=== PATIENT | female | born 1980 | race Caucasian/White ===

== ENCOUNTER 2022-03-05 08:17 | Outpatient (REF) | payer OTHER, SELFPAY ==
--- NOTE | ~2022-03-05 | XR_ITS ---
EXAMINATION: XR HAND, RIGHT CLINICAL INFORMATION: Pain in right hand. COMPARISON: None TECHNIQUE: PA, lateral, and oblique views of the right hand. FINDINGS: The bones and soft tissues are normal. No fracture. Alignment is anatomic. Joint spaces are maintained. No erosions or soft tissue calcifications. XR/XR hand RT min 3V IMPRESSION: Unremarkable right hand exam
== END 2022-03-05 08:18 | disposition home or self-care (01) ==
LOC: HO.HOSX 08:17
PROVIDERS: Visit Provider Physician Assistant
DX: M79.641 Pain in right hand (principal)
CPT/HCPCS: 73130

== ENCOUNTER 2022-03-20 06:01 | Day surgery (SDC) | payer OTHER, SELFPAY ==
[2022-03-13 14:57] VITALS: BMI 30.2
--- NOTE | 2022-03-19 08:45 | HO.ANESPROP2 ---
Documented by User: Terri Chapa NP 03/19/22 08:45 HPI - Anesthesia Eval Consult details Narrative: 41yo F for Right Excision Ganglion wrist PMFSH Active Problems Active Problems: All Active Problems (Updated 03/05/22 @ 09:50 by Mino Salvador PA-C) Ganglion cyst of dorsum of right wrist (Acute) Past Medical History Medical History No pertinent past medical history Surgical History Surgical History History of hysteroscopy Status post incision and drainage Social History Social History Alcohol intake: current Alcohol intake frequency: holidays/special occasions only Patient Tobacco Use Status: Never used Tobacco Are you DNR?: No Advance Directives: No Advance Directives Information Provided: Yes Recently lost weight without trying: No Nutrition Risks: No Nutritional Risk FDLMP: has iud. sporadic Current occupational status: unemployed Meds Allergies Allergy/AdvReac Type Severity Reaction Status Date / Time Penicillins AdvReac diff Verified 03/20/22 06:18 breathing Home Medications Medication Instructions Recorded Confirmed Last Taken Type multivitamin 1 tab PO DAILY 03/13/22 03/13/22 Unknown History Exam Exam Date and Time: March 19, 2022 0845 Height,Weight and Vital Signs: Height 5 ft 2 in Weight 74.843 kg Assessment and Plan Assessment Anesthesia Assessment: Chart Reviewed Documented by User: Yo Torres MD 03/20/22 08:13 PMFSH Past Medical History Medical History No pertinent past medical history Family History Family history of problems with anesthesia: No Surgical History Surgical History History of hysteroscopy Status post incision and drainage History of Problems with Anesthesia: No Social History Social History Alcohol intake: current Alcohol intake frequency: holidays/special occasions only Patient Tobacco Use Status: Never used Tobacco Are you DNR?: No Advance Directives: No Advance Directives Information Provided: Yes Recently lost weight without trying: No Nutrition Risks: No Nutritional Risk FDLMP: has iud. sporadic Current occupational status: unemployed Meds Allergies Allergy/AdvReac Type Severity Reaction Status Date / Time Penicillins AdvReac diff Verified 03/20/22 06:18 breathing Home Medications Medication Instructions Recorded Confirmed Last Taken Type multivitamin 1 tab PO DAILY 03/13/22 03/13/22 Unknown History Exam Airway Mallampati Class: III TM Dist: >3cm Neck ROM: Full Loose/Missing/Broken Teeth: No Assessment and Plan Assessment Anesthesia Assessment: Anesthesia Plan Discussed Final Anesthetic Review Family History of Problems with Anesthesia: No History of Problems with Anesthesia: No NPO: Yes ASA Class: I Final Preanesthetic Review: No Changes in Pt Med Stat, Meds/Allgs Chart Reviewed, Consent Obtained/Reviewed and Anes Risks/Benef Reviewed Patient Risk: Low Procedure Risk: Low Anesthetic Plan Anesthetic Plan: GA Disposition: Standard PACU
[2022-03-20] VITALS (7 sets, daily range): BP systolic 104–122; BP diastolic 59–79; PULSE 53–59; RESP 16–18; TEMP 36.2–36.4; O2SAT 97–99
[2022-03-20 06:24] LABS: UPreg QC Valid YES; Urine Pregnancy NEGATIVE (NEGATIVE)
[2022-03-20] MEDS: Lactated Ringers 1,000 ML 100 ML IVCONT (06:32)
--- NOTE | 2022-03-20 07:32 | PC.NURSE ---
verified with dr. irene that she does not want an antibiotic.
--- NOTE | 2022-03-20 08:54 | MHC.SHP ---
Pre-Procedural Eval Section A Date of Service: 03/20/22 The patient is an INPATIENT: No Changes since office visit: No Cold of Flu in the past 2 weeks, No New Medical Problems, No Changes in Medication and No Patient answered all questions The History & Physical has been completed within 30 days and I have reviewed it.: Yes Section B Chief Complaint: ganglion Allergies: Allergies Allergy/AdvReac Type Severity Reaction Status Date / Time Penicillins AdvReac diff Verified 03/20/22 06:18 breathing Plan I have reviewed the history and physical and performed a pertinent physical examination on my patient. No changes have occurred unless specified.
--- NOTE | 2022-03-20 08:54 | W.PM.OPN ---
Operative Note Operative Note Date of Service: 03/20/22 Narrative: Operative Note Narrative: Preop diagnosis: 1. Right dorsal wrist ganglion Postop diagnosis: Same Procedure: 1. Right dorsal wrist ganglion excisional biopsy Surgeon: Katya Kevin MD Anesthesia: Mac Findings: Left dorsal wrist ganglion approximately 1.2 cm in diameter, filled with clear viscous fluid consistent with a ganglion Tourniquet time: 13 minutes EBL: 5.0 ml Specimen: Left dorsal wrist ganglion Drains: None Complications: None Disposition: Brought to the recovery room in stable condition Plan: Follow-up in 10-14 days for wound check, suture removal and to check pathology Indications: The patient is a 41 year old woman with a right dorsal wrist ganglion that has been unresponsive to nonoperative management. The risks and benefits of operative treatment, including but not limited to risk of damage to blood vessels, nerves, tendons, infection, recurrence, persistent pain or numbness, or need for further surgery were discussed with the patient and they wished to proceed with surgery. Procedure: Once consent was obtained patient was brought back to the operating suite and placed in the operating table in a supine position. Perioperative antibiotics and anesthesia was administered by the anesthesia team. A tourniquet was applied to the proximal aspect of the right upper extremity and the limb was prepped and draped in a standard surgical fashion. The limb was elevated exsanguinated with Esmarch bandage and the tourniquet inflated to 250 mm of mercury for a total tourniquet time of 13 minutes. A 2 cm transverse incision was made over the dorsal aspect of the right wrist, centered over the dorsal wrist ganglion. Ganglion was located sitting atop the ECRB tendon with its stalk passing just ulnar to this tendon. The incision was made with a #15 blade through the skin to the subcutaneous tissues. Tenotomy scissors were then used to carefully dissect down through the subcutaneous layer to the dorsal wrist ganglion. It measured approximately 1.2 cm in diameter and was filled with clear viscous fluid consistent with a ganglion. It was carefully mobilized from the surrounding soft tissues using tenotomy and iris scissors. It's stalk passed just ulnar to the ECRB tendon. The Bovie was used to cauterize the stalk to reduce risk of recurrence., and the ganglion was cut free and removed to the back table to be sent for histopathologic review. No further masses were identified. At this point the tourniquet was deflated and hemostasis obtained with a brief period of local pressure and monopolar electrocautery. Wound was irrigated with normal saline. The subcutaneous layer was closed with some 4-0 Vicryl suture, and the skin edges were reapproximated with some 5-0 nylon suture. The wound was infiltrated with some 1% lidocaine with epinephrine for postop pain control and a sterile dressing was applied. The patient appears to have tolerated the procedure well and with no complications. All digits were well vascularized conclusion of the case.
== END 2022-03-20 09:54 | disposition home or self-care (01) ==
PROVIDERS: Nurse Practitioner; Visit Provider Orthopaedic Surgery
PROC: (CPT 25111; principal; 2022-03-20 07:30)
DX: M67.431 Ganglion, right wrist (principal); Z88.0 Allergy status to penicillin
CPT/HCPCS: 25111; 81025; 88304; J0171; J1100; J2405; J3010

== ENCOUNTER 2022-09-26 09:28 | Outpatient (REF) | payer OTHER, SELFPAY ==
[2022-09-26 09:39] LABS: MANUAL DIFF FLAG NO
[2022-09-26 10:23] LABS: Basophils Absolute Auto 0.1 X10*3/uL (0.0-0.2); Eosinophils Absolute Auto 0.3 X10*3/uL (0.0-0.4); Hematocrit 46.3 % (37.0-47.0); Hemoglobin 15.1 g/dl (12.0-16.0); Imm Gran Abs Auto 0.03 X10*3/uL (0.00-0.03); Imm Gran Pct Auto 0.5 % (0.0-0.4); Lymphocytes Absolute Auto 1.9 X10*3/uL (1.2-4.9); Lymphocytes Percent Auto 30.4 % (20-40); Mean Corpuscular HGB Conc 32.6 g/dl (31.0-35.0); Mean Platelet Volume 10.3 fL (9.4-12.3); Monocytes Absolute Auto 0.5 X10*3/uL (0.1-1.2); Monocytes Percent Auto 7.7 % (2-11); Neutrophils Absolute Auto 3.5 x10*3/uL (2.0-8.3); Neutrophils Percent Auto 56.4 % (45-73); Platelet Count 318 X10*3/uL (160-400); Red Cell Distribution Width 11.9 % (11.0-16.0); White Blood Count 6.2 X10*3/uL (4.8-10.8)
[2022-09-26 11:48] LABS: Alanine Aminotransferase 16 U/L (0-31); Albumin Level 4.3 g/dL (3.5-5.0); Alkaline Phosphatase 77 U/L (39-117); Anion Gap 14 (12-20); Aspartate Amino Transferase 17 U/L (5-31); Bilirubin Total 1.3 mg/dL (0.0-1.0); Blood Urea Nitrogen 12 mg/dL (9-16); Calcium 9.5 mg/dL (8.4-10.2); Carbon Dioxide 26 mmol/L (22-29); Chloride 105 mmol/L (96-108); Cholesterol 194 mg/dL; Estimated Glomerular Filt Rate > 60; Glucose Random 86 mg/dL (60-115); HDL Cholesterol 37 mg/dL; LDL Cholesterol Calculated 133 mg/dl; Potassium 4.3 mmol/L (3.3-5.1); Sodium 141 mmol/L (135-145); Total Protein 7.8 g/dL (6.5-8.0); Triglycerides 122 mg/dL
[2022-09-26 12:05] LABS: TSH reflex Free T4 1.23 uIU/mL (0.32-4.0)
== END 2022-09-26 09:29 | disposition home or self-care (01) ==
LOC: HO.LAB 09:28
PROVIDERS: PCP Family Medicine; Visit Provider Family Medicine
DX: Z00.00 Encounter for general adult medical examination without abnormal findings (principal)
CPT/HCPCS: 36415; 80053; 80061; 84443; 85025

== ENCOUNTER 2022-10-17 13:00 | Outpatient (RCR) | payer OTHER, SELFPAY ==
--- NOTE | 2022-09-26 12:31 | MHC.OT.EP ---
[address] [phone] Occupational Therapy Plan of Care Date of Evaluation: 09/26/22 Diagnosis: Dorsal wrist ganglion Pain Location: 0-8 right dorsal wrist , deep ache Pain Score: 8 Pain Scale Used: Numeric (0 - 10) Aggravating Factors: Wt bearing on right wrist Alleviating Factors: Assessment: Pt is a 42 yo female S/P right wrist dorsal ganglion cyst excision 03/20/22. Pt resumed her gym work outs 5-6 x a wk in April with low pain and noted worsening pain with weight bearing on her right hand and recurrence of the ganglion cyst early May. Pt referred to OT to improve pain with weight bearing and wrist ROM. Frequency and Duration: The patient will be seen 2x wk x 4 wks Short Term Goals: Demo indep with HEP Wrist flex to > 60 deg Wrist ulnar dev to >25 deg Demo inc wt bearing tolerance to > 50 lb Heat Treat Inspector Goals: Same as above Treatment Plan: Therapeutic Exercise Therapeutic Activity Home Exercise Program Patient Education Ultrasound Electronically Signed By: Neha Mercado OT CHT CLT Please Sign and return to therapist. Thank you once again for your referral.
--- NOTE | 2022-11-21 08:43 | MHC.OT.DC ---
[address] [phone] F: [phone] Occupational Therapy Discharge Note Patient Name: Yi Juan Provider: Katya Kevin Diagnosis: Dorsal wrist ganglion Date of Surgery: 03/20/23 Date of Evaluation: 09/26/22 Date of Discharge: Treatments to Date: 7 Cancellations to Date: 2 No Shows to Date: Discharge Status: Patient Elected to Stop Discharge Summary: Overall good improvements and only reporting pain w/ direct weightbearing through push-ups, but able to complete weightbearing through palm while pushing off and now able to do modified push-ups on wall or counter, but will continue to progress as able w/ caution. Electronically Signed By: Zuleyma Yung OTR/Arturo AYALAT Reviewed/agree with student documentation: N/A Therapist: Please Sign and return to therapist, thank you for your referral.
== END 2022-11-21 08:44 | disposition home or self-care (01) ==
LOC: HO.OT 13:00
PROVIDERS: PCP Family Medicine; Visit Provider Orthopaedic Surgery
DX: M67.431 Ganglion, right wrist (principal)
CPT/HCPCS: 97033; 97035; 97110; 97140; 97165

== ENCOUNTER 2023-01-21 10:14 | Outpatient (REF) | payer OTHER, SELFPAY ==
[2023-01-21 11:42] LABS: Hematocrit 47.2 % (37.0-47.0); Hemoglobin 15.6 g/dl (12.0-16.0); Mean Corpuscular HGB Conc 33.1 g/dl (31.0-35.0); Mean Corpuscular Hemoglobin 29.6 pg (27.0-33.0); Mean Corpuscular Volume 89.6 fL (80.0-98.0); Mean Platelet Volume 11.5 fL (9.4-12.3); Platelet Count 193 X10*3/uL (160-400); Red Blood Count 5.27 X10*6/uL (4.20-5.50); Red Cell Distribution Width 12.3 % (11.0-16.0); White Blood Count 6.3 X10*3/uL (4.8-10.8)
[2023-01-21 12:28] LABS: Erythrocyte Sedimentation Rate 10 MM/HR (0-20)
[2023-01-21 12:47] LABS: Alanine Aminotransferase 50 U/L (0-31); Albumin Level 4.3 g/dL (3.5-5.0); Alkaline Phosphatase 76 U/L (39-117); Anion Gap 12 (12-20); Aspartate Amino Transferase 30 U/L (5-31); Bilirubin Total 1.7 mg/dL (0.0-1.0); Blood Urea Nitrogen 12 mg/dL (9-16); C Reactive Protein 0.45 mg/dL (< or = 0.50); Carbon Dioxide 29 mmol/L (22-29); Chloride 106 mmol/L (96-108); Estimated Glomerular Filt Rate > 60; Glucose Random 83 mg/dL (60-115); Potassium 4.5 mmol/L (3.3-5.1); Sodium 142 mmol/L (135-145); Total Protein 7.4 g/dL (6.5-8.0)
[2023-02-02 08:47] LABS: Other Ref Test - Misc SEE COMMENTS
== END 2023-01-21 10:15 | disposition home or self-care (01) ==
LOC: HO.LAB 10:14
PROVIDERS: PCP Family Medicine; Visit Provider Family Medicine
DX: R19.7 Diarrhea, unspecified (principal)
CPT/HCPCS: 80053; 82784; 85027; 85652; 86140; 86364

== ENCOUNTER 2024-08-03 07:48 | Outpatient (REF) | payer OTHER, SELFPAY ==
[2024-08-03 08:04] LABS: MANUAL DIFF FLAG NO
[2024-08-03 08:27] LABS: Basophils Absolute Auto 0.1 X10*3/uL (0.0-0.2); Basophils Percent Auto 0.9 % (0-2); Eosinophils Absolute Auto 0.2 X10*3/uL (0.0-0.4); Eosinophils Percent Auto 2.8 % (0-4); Hematocrit 46.8 % (37.0-47.0); Hemoglobin 16.1 g/dl (12.0-16.0); Imm Gran Abs Auto 0.03 X10*3/uL (0.00-0.03); Imm Gran Pct Auto 0.4 % (0.0-0.4); Lymphocytes Absolute Auto 1.2 X10*3/uL (1.2-4.9); Lymphocytes Percent Auto 15.1 % (20-40); Mean Corpuscular HGB Conc 34.4 g/dl (31.0-35.0); Mean Corpuscular Hemoglobin 30.7 pg (27.0-33.0); Mean Corpuscular Volume 89.1 fL (80.0-98.0); Monocytes Absolute Auto 0.8 X10*3/uL (0.1-1.2); Monocytes Percent Auto 9.3 % (2-11); Neutrophils Absolute Auto 5.8 x10*3/uL (2.0-8.3); Neutrophils Percent Auto 71.5 % (45-73); Platelet Count 233 X10*3/uL (160-400); Red Blood Count 5.25 X10*6/uL (4.20-5.50); White Blood Count 8.1 X10*3/uL (4.8-10.8)
[2024-08-03 08:34] LABS: Estimated Average Glucose 97 mg/dL; Hemoglobin A1C 129.2846 umol/L; Total Hemoglobin (HGBA1C) 4143.6391 umol/L
[2024-08-03 09:47] LABS: Alanine Aminotransferase 28 U/L (0-31); Albumin Level 4.3 g/dL (3.5-5.0); Alkaline Phosphatase 67 U/L (39-117); Anion Gap 12 (12-20); Aspartate Amino Transferase 23 U/L (5-31); Bilirubin Total 1.1 mg/dL (0.0-1.0); Blood Urea Nitrogen 14 mg/dL (9-16); Calcium 8.9 mg/dL (8.4-10.2); Carbon Dioxide 27 mmol/L (22-29); Chloride 107 mmol/L (96-108); Cholesterol 206 mg/dL (<200); Estimated Glomerular Filt Rate > 60; Glucose Random 90 mg/dL (60-115); HDL Cholesterol 44 mg/dL (>40); LDL Cholesterol Calculated 139 mg/dL (<100); Sodium 142 mmol/L (135-145); Total Protein 7.4 g/dL (6.5-8.0); Triglycerides 118 mg/dL (<150)
[2024-08-03 09:51] LABS: TSH reflex Free T4 2.29 uIU/mL (0.32-4.0)
[2024-08-03 10:05] LABS: Reflex LDLD? No
== END 2024-08-03 07:49 | disposition home or self-care (01) ==
LOC: HO.LAB 07:48
PROVIDERS: PCP Student in an Organized Health Care Education/Training Program; Visit Provider Student in an Organized Health Care Education/Training Program
DX: Z31.84 Encounter for fertility preservation procedure (principal); Z13.1 Encounter for screening for diabetes mellitus
CPT/HCPCS: 36415; 80053; 80061; 83036; 84443; 85025

== ENCOUNTER 2024-08-03 08:46 | Outpatient (AMB) | payer OTHER, SELFPAY ==
--- NOTE | 2024-08-03 08:47 | MHC.OFFVIS ---
Vital Signs 08/03/24 08:48 Height 5 ft 2 in Weight 180 lb BMI 32.9 Intake Visit Reasons: colonoscopy screening Intake Note: This patient presents for colonoscopy screening. Pt c/o; reports never had a colonoscopy before, reports no rectal bleeding, reports changes in bowel habits. 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 She has never had any colonoscopy in the past. She denies any significant GI complaints. She does state that her mother has been diagnosed to have colitis and her brother has Crohn's disease. She says that she may have had some area starting last year on and off. She otherwise says she is in good health overall. PFSH Medical History Colon cancer screening No pertinent past medical history Surgical History History of hysteroscopy Status post incision and drainage Social History Alcohol intake: current Alcohol intake frequency: holidays/special occasions only Patient Tobacco Use Status: Never used Tobacco Current occupational status: unemployed Review of Systems Const Denies chills and Denies fever(s) Card Denies chest pain, Denies dyspnea and Denies dyspnea on exertion Resp Denies cough, Denies dyspnea and Denies dyspnea on exertion GI Denies hematochezia and Denies change in bowel habits Denies hematuria Musc Denies back pain and Denies limited range of motion Neuro Denies focal weakness and Denies convulsions Psych Denies depression and Denies mood swings Physical Exam Vital Signs: BMI result Body Mass Index 32.9 Const General: comfortable and no acute distress Orientation/consciousness: patient oriented x3 Neck Neck: Yes no lymphadenopathy Resp Auscultation: clear to auscultation bilaterally Cardio Rhythm: regular rhythm GI Palpation (GI): Soft to palpation, nontender and no guarding Neuro General: patient oriented x3 Assessment & Plan Assessment & Plan (1) Colon cancer screening: Code(s): Z12.11 - Encounter for screening for malignant neoplasm of colon Category: Medical Plan: I reviewed with her the technique of colonoscopy for screening. I explained the risks including but not limited to bleeding and perforation, as well as the benefits and alternatives. He was given consent. She understands the other alternative of Cologuard testing as well. She does not seem to be at above average risk for colon cancer. Medications: New sodium,potassium,mag sulfates 17.5-3.13-1.6 gram (Suprep Bowel Prep Kit) DILUTE; drink full amount early evening before AND next morning at least 2 hr before procedure; follow w 32 oz. water PO 354 mL 0RF Coding Level of Care Code New Pt Level 3 (18921) Diagnoses Colon cancer screening Z12.11
[2024-08-03 08:48] VITALS: BMI 32.9
== END 2024-08-03 09:03 | disposition home or self-care (01) ==
PROVIDERS: PCP Family Medicine; Visit Provider Surgery
DX: Z12.11 Encounter for screening for malignant neoplasm of colon (principal)
CPT/HCPCS: 99203

== ENCOUNTER 2024-09-02 08:17 | Day surgery (SDC) | payer OTHER, SELFPAY ==
[2024-08-31 10:28] VITALS: BMI 32.9
--- NOTE | 2024-08-31 13:30 | HO.ANESPROP2 ---
HPI - Anesthesia Eval Consult details Narrative: 44yo F for Colonoscopy with Possible Polypectomy PMFSH Active Problems Active Problems: All Active Problems Colon cancer screening (Acute) Stiffness of right wrist joint (Acute) Ganglion cyst of dorsum of right wrist (Acute) Past Medical History Medical History Anxiety Colon cancer screening No pertinent past medical history Family History Family history of problems with anesthesia: No Surgical History Surgical History History of colonoscopy (~09/02/24) History of surgery on right wrist History of hysteroscopy Status post incision and drainage History of Problems with Anesthesia: No Social History Social History Alcohol intake: current Alcohol intake frequency: holidays/special occasions only Patient Tobacco Use Status: Never used Tobacco Current occupational status: unemployed Meds Allergies Allergy/AdvReac Type Severity Reaction Status Date / Time Penicillins AdvReac diff Verified 09/15/24 10:34 breathing Home Medications ?Medication ?Instructions ?Recorded ?Confirmed ?Last Taken ?Type multivitamin 1 tab PO DAILY 03/13/22 09/02/24 Unknown History escitalopram oxalate 5 mg tablet 5 mg PO DAILY 08/03/24 09/02/24 Unknown History Exam Height,Weight and Vital Signs: Height 5 ft 2 in Weight 81.647 kg Assessment and Plan Assessment Anesthesia Assessment: Chart Reviewed Final Anesthetic Review Family History of Problems with Anesthesia: No History of Problems with Anesthesia: No
--- OUTSIDE RECORDS SUMMARY | 2024-09-02 08:20 | XMS_ITS | Data Portability ---
Author Organization [place] [facility], [facility] Address [address] [place] [address] Assessment No assessment recorded. Plan of Treatment Reminders Order Date Submit Date Provider Last Modified By Organization Details Last Modified Time Details Appointments None recorded. Lab culture, vaginal, yeast - VAGINAL CULTURE SPECIATE YEAST. IF CULTURE IS POSITIVE PLEASE SEND OUT SENSITIVIT IES 2017 018 [email or web address] [facility], [address] [place] [address], [id number] 8 14:36:27 test, urine 2018 019 [email or web address] In-Office Order, Internal Use Only DO Not Attach Compendium DO Not Attach Compendium, Do Not Delete/merge, [id number] 9 13:37:28 kandace wet prep 2018 019 [email or web address] In-Office Order, Internal Use Only DO Not Attach Compendium DO Not Attach Compendium, Do Not Delete/merge, [id number] 9 14:24:22 test, urine 2018 019 In-Office Order, Internal Use Only DO Not Attach Compendium DO Not Attach Compendium, Do Not Delete/merge, [id number] 9 14:28:55 Referral None recorded. Procedures None recorded. Surgeries cryotherap y (SURG) 2018 019 [email or web address] Not available 9 10:18:45 Imaging None recorded. Medication Orders Diflucan 100 mg tablet 2017 018 [email or web address] [id number], [address] [facility], [facility] [place] [place] [address] [place], [address], 9 14:10:15 Ortho Micronor 0.35 mg tablet 2018 019 INTERFACE [id number], [address] [facility], [facility] [place] [place] [address] [place], [address], 9 14:23:14 Patient TargetsNo targets recorded. Patient Instructions Encounter Date Encounter Id Patient Instructions Last Modified By Organization Details Last Modified Time 12/28/2017 [id number] culture for yeas t and sensitivities if negative continue diflucan and ointment twice a week fro 3 months cryo surgery discussed for ectropion pt has completed her childbearing aware of risks and benefits of this procedure [email or web address] Not available 12/28/2017 17:01:28 04/06/2018 [id number] decrease difluca n to once a week schedule cryo ablation for cervical ectropion pt aware and conselled about risks and benefits of this wants to proceed [email or web address] Not available 04/06/2018 13:22:18 11/17/2018 [id number] cryo of cervix done head slipped and defrosted after 2 minutes pt apprised of this cervix then cryoed for 2 minutes pt will follow up in 1 week to recheck vagina if appears ok will repeat cryo of cervix only [email or web address] Not available 11/18/2018 12:03:30 11/22/2018 [id number] appears that vagina is intact will reperform the cryo surgery at no cost to the patient this visit will be without cost as well will reschedle cervical cryo [email or web address] Not available 11/22/2018 09:48:09 02/28/2019 [id number] wet smear looks normal no inflammation no rita seen cultures sent trial of micronor to manipulate discharge trial for two months discussed skin breakdown recommend trial of no underwear and no pads [email or web address] Not available 02/28/2019 14:26:49 Reason for Referral None Reported. Results Created Date Observation Date Name Description Value Unit Range Abnormal Flag Note LastModifiedBy Organization Detail LastModifiedTime 02/28/2019 [email or web address] wet prep Hyphae Absent Not Available In-Office Order Internal Use Only DO Not Attach Compendium DO Not Attach Compendium, Do Not Delete/merge, [id number] 02/28/2019 14:23:32 02/28/2019 kandace wet prep Clue Cells Absent Not Available In-Offi ce Order Internal Use Only DO Not Attach Compendium DO Not Attach Compendium, Do Not Delete/merge, [id number] 02/28/2019 14:23:32 02/28/2019 kandace wet prep Other nl nicole Not Available In-Office Order Internal Use Only DO Not Attach Compendium DO Not Attach Compendium, Do Not Delete/merge, [id number] 02/28/2019 14:23:32 02/28/2019 pregn trudy test, urine Result negati ve Not Available In-Office Order Internal Use Only DO Not Attach Compendium DO Not Attach Compendium, Do Not Delete/merge, [id number] 02/28/2019 14:09:44 12/29/19 18 01/06/2018 cultu re, vagin al, yeast source VAG Not Available [facility] [address] [place], [address] 01/06/2018 08:12:55 12/29/19 18 01/06/2018 cultu re, vagin al, yeast culture CULTU RE, YEAST , W/DIR ECT FLUOR ESCEN T KANDACE MICRO NUMBE R: [id number] TEST STATU S: FINAL SPECI MEN SOURC E: VAGIN A SPECI MEN QUALI TY: ADEQU ATE SMEAR : No funga l eleme nts seen. RESUL T: No fungu s isola von Not Available [facility] [address] [place], [address] 01/06/2018 08:12:55 11/18/19 19 11/17/2018 pregn trudy test, urine Result negati ve Not Available In-Office Order Internal Use Only DO Not Attach Compendium DO Not Attach Compendium, Do Not Delete/merge, [id number] 11/17/2018 11:50:33 02/29/20 19 03/09/2019 cultu re, vagin al, yeast source VAG Not Available [facility] [address] [place], [id number] 03/09/2019 09:58:55 02/29/20 19 03/09/2019 cultu re, vagin al, yeast culture CULTU RE, YEAST , W/DIR ECT FLUOR ESCEN T KANDACE MICRO NUMBE R: [id number] TEST STATU S: FINAL SPECI MEN SOURC E: VAGIN A SPECI MEN QUALI TY: ADEQU ATE SMEAR : No funga l eleme nts seen. RESUL T: No fungu s isola von Not Available [facility] [address] [place], [address] 03/09/2019 09:58:55 02/29/20 19 03/09/2019 bacte rial vagin osis + vagin itis panel , vagin al lactobacillu s species 7.3 log_( cells /mL) Not Available [facility] [address] [place], [address] 03/09/2019 09:58:55 02/29/2003/09/2019 bacte rial vagin osis + vagin itis panel , vagin al atopobium vaginae Not Detect ed Not Available [facility] [address] [place], [address] 03/09/2019 09:58:55 02/29/2003/09/2019 bacte rial vagin osis + vagin itis panel , vagin al megasphaera species Not Detect ed Not Available [facility] [address] [place], [address] 03/09/2019 09:58:55 02/29/2003/09/2019 bacte rial vagin osis + vagin itis panel , vagin al gardnerella vaginalis Not Detect ed NOT SUPPO RTIVE OF BV: The patte rn of resul ts is not suppo rtive of a diagn osis of BV: 1)Pre sence of Lacto bacil marshal spp., G. vagin murtaza level s less than 6.0 log cells /mL, and absen ce of A. vagin ae and Megas phaer a spp; or 2)Abs ence of all targe von organ isms; or 3)Abs ence of Lacto bacil marshal spp. plus G. vagin murtaza detec von at level s less than 6.0 log cells /mL and absen ce of A. vagin ae and Megas phaer a spp. EQUIV OCAL FOR BV: The patte rn of resul ts is neith er suppo rtive nor not suppo rtive of a diagn osis of BV. The patie nt may be in trans ition into or out of BV: Prese nce of Lacto bacil marshal spp. plus G. vagin murtaza (grea ter or equal to 6.0 log cells /mL) and/o r one of the other BV-as socia von patho gens. SUPPO RTIVE OF BV: The patte rn of iggy ts is suppo rtive of a diagn osis of BV: Absen ce of Lacto bacil marshal spp. and prese nce of G. vagin murtaza great er than or equal to 6.0 log cells /mL and/o r one or both of the other BV-as socia von patho gens. Alexa ntrat ion for Lacto bacil li (L. acido philu s/ crisp atus, L. jense kiki) are colle ctive ly repor von under the term Lact obaci llus spp. , as these speci es are among the perox leslie produ cing Lacto bacil li thoug ht to be prote ctive again st bacte rial vagin osis. Atopo bium vagin ae, Megas phaer a spp., and Gardn erell a (grea ter than 6.0 log cells /mL) have been assoc iated with vagin osis when prese nt in the absen ce of perox leslie produ cing Lacto bacil li. This test was devel oped and its benigno tical perfo rmanc e adriana cteri stics have been deter mined by [facility], [facility], [place]. It has not been clear ed or appro celestina by the FDA. This assay has been valid ated pursu ant to the CLIA regul ation s and is used for clini radha purpo ses. Not Available [facility] [address] [place], [address] 03/09/2019 09:58:55 02/29/20 19 03/09/2019 bacte rial vagin osis + vagin itis panel , vagin al bv category NOT SUPPOR TIVE not suppor tiv Not Available [facility] [address] [place] [address], 03/09/2019 09:58:55 02/29/2003/09/2019 bacte rial vagin osis + vagin itis panel , vagin al chlamydia trachomatis RNA, tma Not Detect ed not detect ed Not Available [address], 03/09/2019 09:58:55 02/29/20 19 03/09/2019 bacte rial vagin osis + vagin itis panel , vagin al neisseria gonorrhoeae RNA,tma Not Detect ed not detect ed This test was perfo rmed using the APTIM A COMBO 2(R) Assay (GEN- PROBE (R)). The benigno tical perfo rmanc e adriana cteri stics of this assay , when used to test SureP ath(R ) speci mens have been deter mined by [facility] Jerad goss Not Available [address], 03/09/2019 09:58:55 02/29/2003/09/2019 bacte rial vagin osis + vagin itis panel , vagin al C. albicans, DNA Detect ed not detect ed abnormal Not Available [address], 03/09/2019 09:58:55 02/29/2003/09/2019 bacte rial vagin osis + vagin itis panel , vagin al C. glabrata, DNA Not Detect ed not detect ed Not Available [address], 03/09/2019 09:58:55 02/29/2003/09/2019 bacte rial vagin osis + vagin itis panel , vagin al C. tropicalis, DNA Not Detect ed not detect ed Not Available [address], 03/09/2019 09:58:55 02/29/2003/09/2019 bacte rial vagin osis + vagin itis panel , vagin al C. parapsilosis , DNA Not Detect ed not detect ed This test was devel oped and its benigno tical perfo rmanc e adriana cteri stics have been deter mined by Dustin trejo [place], [place]. It has not been clear ed or appro celestina by the FDA. This assay has been valid ated pursu ant to the CLIA regul ation s and is used for clini radha purpo ses. Not Available [facility] [address], [place], [facility] 03/09/2019 09:58:55 02/29/20 19 03/09/2019 bacte rial vagin osis + vagin itis panel , vagin al sureswab (R) trichomonas vag RNA,ql,tma Not Detect ed not detect ed This test was perfo rmed using the APTIM A Trich omona s vagin murtaza Assay (Gen- Probe ). For more infor paulino helton on this test, go to http: //[facility] sebas helton.que stdia gnost ics.c om/fa q/ Trich omona stma Not Available [facility] [address], [place], [facility] 03/09/2019 09:58:55 Result Notes None recorded. Procedures Surgical History Date Name Laterality Status Provider Name and Address Organization Details Recorded Time LEEP completed Mary Lund MD [address] [place] [address], [address] [place] [address] 11/24/2017 11:55:27 Hysteroscopy biopsy completed Mary Lund MD [address] [place] [address], [address] [place] [address] 11/24/2017 11:56:53 Imaging Results None recorded. Procedure Notes None recorded. Medical Equipment None Reported. Allergies Allergen ID Allergen Name Allergen Category Reaction Reaction Severity Criticality Documentation Date Start Date Code Code System Note Provider Name and Address Organization Details Recorded Time [id number] Medicinal product containin g penicilli n and acting as antibacte rial agent (product) medicatio n Not available Not available Not available 11/24/2017 97368 05 SNOMED Clemencia Misbah marcus, [facility] 8 11:47:53 Medications Name Sig Start Date Stop Date Status Note LastModified by Organization Details LastModified Time fluconazole 100 mg tablet Take 1 tablet twice a week by oral route. 02/28 completed Not Available Not Available Not Available fluconazole 150 mg tablet Take 1 tablet every 72 hours by oral route. active Not Available Not Available No t Available nystatin-tr iamcinolone 100,000 unit/gram-0 .1 % topical ointment APPLY TO THE AFFECTED AREA(S) BY TOPICAL ROUTE 2 TIMES PER DAY 12/28 completed Not Available Not Available Not Available Shalini 0.35 mg tablet active Not Available Not Available No t Available Vitals Date Recorded Body height Body mass index (BMI) Body weight Systolic blood pressure Diastolic blood pressure Provider Name and Address Organization Details Last Updated DateTime 12/28/2017 157.48 cm 28.3 kg/m2 85534.82 g 122 mm[Hg] 78 mm[Hg] Clemencia Beyer [facility] 8 14:50:03 Date Recorded Body height Body mass index (BMI) Body weight Systolic blood pressure Diastolic blood pressure Provider Name and Address Organization Details Last Updated DateTime 04/06/2018 157.48 cm 28.3 kg/m2 74455.82 g 122 mm[Hg] 78 mm[Hg] Clemencia Beyer [facility] 8 09:03:02 Date Recorded Body height Body mass index (BMI) Body weight Systolic blood pressure Diastolic blood pressure Provider Name and Address Organization Details Last Updated DateTime 11/17/2018 157.48 cm 28.3 kg/m2 84676.82 g 122 mm[Hg] 80 mm[Hg] Clemencia Beyer [facility] 9 11:43:26 Date Recorded Body height Systolic blood pressure Diastolic blood pressure Provider Name and Address Organization Details Last Updated DateTime 11/22/2018 157.48 cm 122 mm[Hg] 80 mm[Hg] Clemencia Beyer [facility] 11/22/2018 09:34:33 Date Recorded Body height Systolic blood pressure Diastolic blood pressure Provider Name and Address Organization Details Last Updated DateTime 02/28/2019 157.48 cm 120 mm[Hg] 78 mm[Hg] Clemencia Beyer [facility] 02/28/2019 14:10:07 Social History Question Answer Notes LastModified by Organizat ion Details LastModified Time Tobacco Smoking Status Never Smoker Mary Lund MD [address] [facility], [address], [place], [address], [place] - [facility] 11/24/2017 11:55:05 What Is Your Level Of Alcohol Consumption? Occasional [email or web address] Information not available 11/24/2017 Drug Use? No [email or web address] Information no t available 11/24/2017 What Was The Date Of Your Most Recent Tobacco Screening? 11/24/2017 Information n ot available 04/06/2019 Sex: Unknown Functional Status None recorded. Mental Status None recorded. Family History Nothing Reported. Medical History No medical history recorded. Gynecological History Statement/Question Response STIs/STDs N Abnormal Pap Y Current Control Method Partner Vas ectomy Frequency of Cycle (Q days) 28 Date of LMP 02/18/2019 Sexually Active? Y Leep Y Obstetrics History GPAL:G 2 P 2 0 0 2 Type Value Full Term 2 Living 2 Total 2 Past Encounters Encounter ID Performer Location Encounter Start Date Encounter Closed Date Diagnosis/Indication Diagnosis SNOMED-CT Code Diagnosis ICD10 Code [id number] Mary Lund MD [facility] [address] [place] [address] 11/24/2017 11:40:26 11/24/2017 12:16:00 Candidiasis of vagina 10264540 B37.3 Vaginal discharge 142032 006 N89.8 [id number] Mary Lund MD [facility] [address] 12/28/2017 14:42:18 12/28/2017 15:24:26 Vaginal discharge 261672318 N89.8 [id number] Mary Lund MD [facility] [address] [address] 04/06/2018 08:59:15 04/06/2018 09:20:36 Vaginitis 35993098 N76.0 Ectropion of cervix 7934 2005 N86 [id number] Mary Lund MD [facility] [place], [place] [address], [place] [address] 11/17/2018 11:26:47 11/17/2018 12:23:58 Urine test negative 794835462 Z32.02 Vaginal discharge 411420 006 N89.8 [id number] Mary Lund MD [facility] [address] [facility] [address] [place] [address] 11/22/2018 09:23:37 11/22/2018 09:44:50 Vaginal discharge 348954428 N89.8 [id number] Mary Lund MD [facility] [address] [facility] [address] [place] [address] 02/28/2019 14:01:25 02/28/2019 14:27:03 Urine test negative 264670151 Z32.02 Vaginal discharge 235776 006 N89.8 Health Concerns Section Related Observation LastModified by Organization Detai ls LastModified Time None Recorded Concern Status LastModified by Organization Details LastModified Time None Recorded Advance Directives Directive None Recorded Payers Encounter Date Sequence Insurance Name Policy Number Policy Otto Covered Member ID Otto Member ID Guarantor Name 12/28/2017 1 [employer] (POS) [id number] Randy Juan [id number] Yi Drake 04/06/2018 1 [employer] (POS) [id number] Randy Giuseppearon [id number] Yi Giuseppearon 11/17/2018 1 [employer] (POS) [id number] Randy Giuseppearon [id number] Yi Drake 11/22/2018 1 [employer] (POS) [id number] Randy Giuseppearon [id number] Yi Giuseppearon 02/28/2019 1 [employer] (POS) [id number] [id number] Yi Drake Notes Date Note Type Note Provider Name and Address Organization Details Recorded Time 12/28/2017 text/html the patient returns today she is on diflucan suppression and she used used the cream for a week only she feels better externally but still has discharge Mary Lund MD [address] [place] [address], [address] Floor, [place], [address], [place] - [facility] 12/28/2017 17:01:54 04/06/2018 text/html the patient is here today for follow up she is using diflucan twice a week no itching or burning but small amount of discharge sexually active without difficulty does not want more children Mary Lund MD [address], [address], [facility] 04/06/2018 13:22:23 11/17/2018 text/html here for cryoablation of cervix for intractable discharge has tried multiple other modalities and has not had any success moderate ectropian on the cervix noted pt wants to try cryo for this indication consent signed Mary Lund MD [address], [address], [facility] 11/18/2018 12:04:02 11/22/2018 text/html pt here for foll ow up last week had a cryo of her cervix and probe slipped and vagina was cryoed for 2 minutes when it was noted that the probe had slipped the procedure was discontinued after 2 minutes pt was apprised of this and asked to come in today to recheck the vagina Mary Lund MD [address], [address], [facility] 11/22/2018 09:48:23 02/28/2019 text/html here for follow up wearing a pantyliner and underwear 06/04 Mary Lund MD [address], [address], [facility] 02/28/2019 14:27:56 OBGyn Episode No OBEpisode recorded.
--- OUTSIDE RECORDS SUMMARY | 2024-09-02 08:20 | XMS_ITS ---
Author Name [facility] Organization Unknown History of Medication Use Medication Directions Dispensed Refills Start Date End Date Stat No known medications No known medications 2023 active buPROPion (WELLBUTRIN XL) 150 MG 24 hr tablet Take 1 tablet (150 mg total) by mouth every morning. Swallow whole; do not crush, chew, or divide. 12/10/2022 active Problems Problem Status Onset Date Problem Type Date of Resoluti on Source Vaginal discharge active [facility] Immunizations Vaccine Date Source Lot Number Status Tdap 02/07/2021 [id number] completed
[2024-09-02 08:28] VITALS: BMI 32.4
[2024-09-02 08:42] LABS: UPreg QC Valid YES; Urine Pregnancy NEGATIVE (NEGATIVE)
[2024-09-02 08:48] VITALS: BP 123/78; PULSE 73; RESP 15; TEMP 36.8; O2SAT 97
--- NOTE | 2024-09-02 08:57 | MHC.SHP ---
Pre-Procedural Eval Section A - 24 Hr Update-Section A only Date of Service: 09/02/24 Section B - Complete if H&P > 30 days Chief Complaint: screening Details of Present Illness: 44 year old year female here for screening colonoscopy Relevant Family History (Specify if Yes): No Relevant Social History: None Present Medications: see Short Stay Collaborative assessment Medical History: Significant History Allergies: Allergies Allergy/AdvReac Type Severity Reaction Status Date / Time Penicillins AdvReac diff Verified 09/02/24 08:47 breathing Review of Systems Sugical H&P ROS: Negative: Constitution, Respiratory and Gastrointestinal Exam Surgical H&P Exam: Normal: Heart, Normal: Lungs and Normal: Abdomen Plan Diagnosis/Plan: Unchanged I have reviewed the history and physical and performed a pertinent physical examination on my patient. No changes have occurred unless specified. Time Spent With Patient Time: Total time managing care of this patient today ____ minutes.
--- NOTE | 2024-09-02 09:17 | P.CONAN_ITS ---
ON LICENSE OF [facility] Active Problems Active Problems: All Active Problems Stiffness of right wrist joint (Acute) Ganglion cyst of dorsum of right wrist (Acute) Colon cancer screening (Acute) Past Medical History Medical History Anxiety Colon cancer screening No pertinent past medical history Functional capacity: independent ambulation Patient : No Family History Family history of problems with anesthesia: No Surgical History Surgical History History of surgery on right wrist History of hysteroscopy Status post incision and drainage History of Problems with Anesthesia: No Social History Social History Alcohol intake: current Alcohol intake frequency: holidays/special occasions only Patient Tobacco Use Status: Never used Tobacco Use of substances other than those prescribed or required for medical reasons: Yes Substance Use Type Other:: edibles occasionally Substance Use Frequency: Occasionally Are you DNR?: No Advance Directives: No Advance Directives Information Provided: Yes Current occupational status: unemployed Meds Allergies Allergy/AdvReac Type Severity Reaction Status Date / Time Penicillins AdvReac diff Verified 09/02/24 08:47 breathing Active Medications: Current Medications Lactated Ringer's (Lr) 1,000 mls @ 100 mls/hr IVCONT .Q10H JOHNNY Home Medications ?Medication ?Instructions ?Recorded ?Confirmed ?Last Taken ?Type multivitamin 1 tab PO DAILY 03/13/22 09/02/24 Unknown History escitalopram oxalate 5 mg tablet 5 mg PO DAILY 08/03/24 09/02/24 Unknown History Exam Height,Weight and Vital Signs: Height 5 ft 2 in Weight 80.286 kg Last Vital Signs Temp 98.2 F 09/02/24 08:48 Pulse 73 09/02/24 08:48 Resp 15 09/02/24 08:48 BP 123/78 09/02/24 08:48 Pulse Ox 97 09/02/24 08:48 O2 Del Method Room Air 09/02/24 08:48 Pertinent Lab Results Pertinent Lab Results: Laboratory Tests 09/02/24 08:30 Urine Test NEGATIVE Airway Mallampati Class: II TM Dist: >3cm Neck ROM: Full Heart: RRR Lungs: CTA Assessment and Plan Assessment Anesthesia Assessment: Anesthesia Plan Discussed and Chart Reviewed Final Anesthetic Review Family History of Problems with Anesthesia: No History of Problems with Anesthesia: No NPO: Yes ASA Class: II Final Preanesthetic Review: Meds/Allgs Chart Reviewed, Consent Obtained/Reviewed and Anes Risks/Benef Reviewed Patient Risk: Low Procedure Risk: Low Anesthetic Plan Anesthetic Plan: MAC: Disposition: Standard PACU
[2024-09-02 09:28] VITALS: BP 98/59; PULSE 71; RESP 16; TEMP 36.1; O2SAT 96
--- NOTE | 2024-09-02 09:36 | P.OP_ITS ---
Operative Note Operative Note Date of Service: 09/02/24 Narrative: Preop diagnosis: Colon cancer screening Postop diagnosis: Normal colonoscopy findings Procedure: Colonoscopy Surgeon: Carlitos Jain MD The patient is a 44-year-old female here for screening colonoscopy. She unde rstood the technique of the planned procedure, as well as the risks, benefits, and alternatives The patient was brought to the operating room and placed in left lateral decubitus position under monitored anesthesia care. A surgical time-out was done. A full digital rectal exam was done and this did not reveal any significant anal lesions. The tip of the Olympus colonoscope was gently introduced through the anal orifice and advanced with insufflation all the way to the cecum. The cecum was intubated. The cecum was identified by visualization of the ileocecal valve as well as the appendiceal orifice. The cecal mucosa was unremarkable. The scope was gradually withdrawn with careful examination of the entire colonic mucosa being done with scope withdrawal. The patient had very good bowel prep so it was unlikely that any lesion may have been missed. The rectum was reached and there were no lesions seen. The anal canal was unremarkable. The scope was then withdrawn completely with desufflation. The patient tolerated procedure well. There were no immediate complications. Her next colonoscopy may be in the next 10 years as she falls at average risk for colon cancer.
[2024-09-02 09:44] VITALS: BP 104/57; PULSE 61; RESP 16; O2SAT 96
[2024-09-02 09:53] VITALS: BP 103/61; PULSE 63; RESP 16; TEMP 36.1; O2SAT 99
--- NOTE | 2024-09-02 11:00 | HO.POSTANES ---
Post Anesthesia Evaluation Post Anesthesia Evaluation Date of Service: 09/02/24 Vital Signs: Vital Signs Temp Pulse Resp BP Pulse Ox O2 Del Method 09/02/24 09:53 97 F 63 16 103/61 99 Room Air 09/02/24 09:44 61 16 104/57 L 96 Room Air 09/02/24 09:28 97 F 71 16 98/59 L 96 Room Air 09/02/24 08:48 98.2 F 73 15 123/78 97 Room Air Anesthesia: Monitored Mental Status: Awake Pain Control: Satisfactory Nausea/Vomiting: None Hydration: Adequate Anesthesia-Related Issues: No Anes. Related Issues
== END 2024-09-02 10:19 | disposition home or self-care (01) ==
PROVIDERS: Nurse Practitioner; PCP Student in an Organized Health Care Education/Training Program; Visit Provider Surgery
PROC: 0DBE8ZZ Excision of Large Intestine, Via Natural or Artificial Opening Endoscopic (ICD-10-PCS; CPT 45378; principal; 2024-09-02 09:00)
DX: Z12.11 Encounter for screening for malignant neoplasm of colon (principal); Z83.79 Family history of other diseases of the digestive system; F41.9 Anxiety disorder, unspecified; Z79.899 Other long term (current) drug therapy; Z88.0 Allergy status to penicillin; Z56.0 Unemployment, unspecified; Z98.890 Other specified postprocedural states
CPT/HCPCS: 45378; 81025; J2003; J2704

== ENCOUNTER → 2024-09-02 08:17 | Outpatient (BNV) | payer OTHER, SELFPAY | PROVIDERS: PCP Student in an Organized Health Care Education/Training Program; Visit Provider Surgery | DX: Z12.11 Encounter for screening for malignant neoplasm of colon (principal) | CPT/HCPCS: 45378 ==

== ENCOUNTER 2024-09-15 10:53 | Outpatient (AMB) | payer OTHER, SELFPAY ==
--- NOTE | 2024-09-15 10:33 | A.OFFVIS_ITS ---
Vital Signs 09/15/24 10:35 BMI Reason not done Patient refused/unable Comment Telehealth Intake Visit Reasons: S/P colonoscopy Intake Note: This is a telehealth visit to discuss colonoscopy results. Pt c/o; reports no complaints status post colonoscopy. 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 She tolerated procedure well. This is a telehealth visit to discuss findings. [facility] Medical History Anxiety Colon cancer screening No pertinent past medical history Surgical History History of colonoscopy (~09/02/24) History of surgery on right wrist History of hysteroscopy Status post incision and drainage Social History Alcohol intake: current Alcohol intake frequency: holidays/special occasions only Patient Tobacco Use Status: Never used Tobacco Current occupational status: unemployed Review of Systems Const Denies chills and Denies fever(s) Card Denies chest pain and Denies dyspnea on exertion Resp Denies dyspnea on exertion GI Denies abdominal pain and Denies hematochezia Telehealth Telehealth Telehealth Platform: Telephone Location of provider rendering services: practice address Location of patient: address on file Patient Identification confirmed using: Name, : Yes Telehealth method: voice only Patient verbally consented to treatment: Yes Patient verbally consented to billing insurance company: Yes Patient informed of any privacy concerns related to visit: Yes Assessment & Plan Assessment & Plan (1) Colon cancer screening: Code(s): Z12.11 - Encounter for screening for malignant neoplasm of colon Category: Medical Plan: She underwent screening colonoscopy last 09/02/2024. I did not see any polyps or any lesions. There was no signs of any colitis. I explained the above findings to her She falls at average risk for colon cancer so her next colonoscopy may be in the next 10 years. This is a telehealth visit. Coding Level of Care Code Tele Est Pt Level 1 (78802) Diagnoses Colon cancer screening Z12.11
--- OUTSIDE RECORDS SUMMARY | 2024-09-15 11:34 | XMS_ITS | Data Portability ---
Author Organization [place] [facility], [facility] Address [id number] [place] [address] Assessment No assessment recorded. Plan of Treatment Reminders Order Date Submit Date Provider Last Modified By Organization Details Last Modified Time Details Appointments None recorded. Lab culture, vaginal, yeast - VAGINAL CULTURE SPECIATE YEAST. IF CULTURE IS POSITIVE PLEASE SEND OUT SENSITIVIT IES 2017 018 [email or web address] [facility], [address] [place] [address], [id number] 8 14:36:27 test, urine 2018 019 [email or web address] In-Office Order, Internal Use Only DO Not Attach Compendium DO Not Attach Compendium, Do Not Delete/merge, [id number] 9 13:37:28 kandace wet prep 2018 019 [email or web address] In-Office Order, Internal Use Only DO Not Attach Compendium DO Not Attach Compendium, Do Not Delete/merge, [id number] 9 14:24:22 test, urine 2018 019 In-Office Order, Internal Use Only DO Not Attach Compendium DO Not Attach Compendium, Do Not Delete/merge, [id number] 9 14:28:55 Referral None recorded. Procedures None recorded. Surgeries cryotherap y (SURG) 2018 019 [email or web address] Not available 9 10:18:45 Imaging None recorded. Medication Orders Diflucan 100 mg tablet 2017 018 [email or web address] [id number], [address] [facility] [place], [address], 9 14:10:15 Ortho Micronor 0.35 mg tablet 2018 019 INTERFACE [id number], [address] [facility] [place], [address], 9 14:23:14 Patient TargetsNo targets recorded. Patient Instructions Encounter Date Encounter Id Patient Instructions Last Modified By Organization Details Last Modified Time 12/28/2017 [id number] culture for yeas t and sensitivities if negative continue diflucan and ointment twice a week fro 3 months cryo surgery discussed for ectropion pt has completed her childbearing aware of risks and benefits of this procedure [email or web address] Not available 12/28/2017 17:01:28 04/06/2018 [id number] decrease difluca n to once a week schedule cryo ablation for cervical ectropion pt aware and conselled about risks and benefits of this wants to proceed [email or web address] Not available 04/06/2018 13:22:18 11/17/2018 [id number] cryo of cervix done head slipped and defrosted after 2 minutes pt apprised of this cervix then cryoed for 2 minutes pt will follow up in 1 week to recheck vagina if appears ok will repeat cryo of cervix only Not available 11/18/2018 12:03:30 11/22/2018 [id number] appears that vagina is intact will reperform the cryo surgery at no cost to the patient this visit will be without cost as well will reschedle cervical cryo [email or web address] Not available 11/22/2018 09:48:09 02/28/2019 [id number] wet smear looks normal no inflammation no rita seen cultures sent trial of micronor to manipulate discharge trial for two months discussed skin breakdown recommend trial of no underwear and no pads [email or web address] Not available 02/28/2019 14:26:49 Reason for Referral None Reported. Results Created Date Observation Date Name Description Value Unit Range Abnormal Flag Note LastModifiedBy Organization Detail LastModifiedTime 02/28/2019 [email or web address] wet prep Hyphae Absent Not Available In-Office Order Internal Use Only DO Not Attach Compendium DO Not Attach Compendium, Do Not Delete/merge, [id number] 02/28/2019 14:23:32 02/28/2019 kandace wet prep Clue Cells Absent Not Available In-Offi ce Order Internal Use Only DO Not Attach Compendium DO Not Attach Compendium, Do Not Delete/merge, [id number] 02/28/2019 14:23:32 02/28/2019 kandace wet prep Other nl nicole Not Available In-Office Order Internal Use Only DO Not Attach Compendium DO Not Attach Compendium, Do Not Delete/merge, [id number] 02/28/2019 14:23:32 02/28/2019 pregn trudy test, urine Result negati ve Not Available In-Office Order Internal Use Only DO Not Attach Compendium DO Not Attach Compendium, Do Not Delete/merge, [id number] 02/28/2019 14:09:44 12/29/19 18 01/06/2018 cultu re, vagin al, yeast source VAG Not Available [facility] [address] [place], [address] 01/06/2018 08:12:55 12/29/19 18 01/06/2018 cultu re, vagin al, yeast culture CULTU RE, YEAST , W/DIR ECT FLUOR ESCEN T KANDACE MICRO NUMBE R: [id number] TEST STATU S: FINAL SPECI MEN SOURC E: VAGIN A SPECI MEN QUALI TY: ADEQU ATE SMEAR : No funga l eleme nts seen. RESUL T: No fungu s isola von Not Available [facility] [address] [place], [address] 01/06/2018 08:12:55 11/18/19 19 11/17/2018 pregn trudy test, urine Result negati ve Not Available In-Office Order Internal Use Only DO Not Attach Compendium DO Not Attach Compendium, Do Not Delete/merge, [id number] 11/17/2018 11:50:33 02/29/20 19 03/09/2019 cultu re, vagin al, yeast source VAG Not Available [facility] [address] [place], [address] 03/09/2019 09:58:55 02/29/20 19 03/09/2019 cultu re, vagin al, yeast culture CULTU RE, YEAST , W/DIR ECT FLUOR ESCEN T KANDACE MICRO NUMBE R: [id number] TEST STATU S: FINAL SPECI MEN SOURC E: VAGIN A SPECI MEN QUALI TY: ADEQU ATE SMEAR : No funga l eleme nts seen. RESUL T: No fungu s isola von Not Available [facility] [address] [place], [address] 03/09/2019 09:58:55 02/29/20 19 03/09/2019 bacte rial vagin osis + vagin itis panel , vagin al lactobacillu s species 7.3 log_( cells /mL) Not Available [facility] [address] [place], [address] 03/09/2019 09:58:55 02/29/2003/09/2019 bacte rial vagin osis + vagin itis panel , vagin al atopobium vaginae Not Detect ed Not Available [facility] [address] [place], [address] 03/09/2019 09:58:55 02/29/2003/09/2019 bacte rial vagin osis + vagin itis panel , vagin al megasphaera species Not Detect ed Not Available [facility] [address] [place], [address] 03/09/2019 09:58:55 02/29/2003/09/2019 bacte rial vagin osis [...] ostic s [facility], [facility], [place]. It has not been clear ed or appro celestina by the FDA. This assay has been valid ated pursu ant to the CLIA regul ation s and is used for clini radha purpo ses. Not Available [facility] [address] [place], [address] 03/09/2019 09:58:55 02/29/20 19 03/09/2019 bacte rial vagin osis + vagin itis panel , vagin al bv category NOT SUPPOR TIVE not suppor tiv Not Available [facility] [address] [place] [address], 03/09/2019 09:58:55 02/29/2003/09/2019 bacte rial vagin osis + vagin itis panel , vagin al chlamydia trachomatis RNA, tma Not Detect ed not detect ed Not Available [address], 03/09/2019 09:58:55 02/29/20 19 03/09/2019 bacte [...] mined by [facility] Jerad goss Not Available [address], 03/09/2019 09:58:55 02/29/2003/09/2019 bacte rial vagin osis + vagin itis panel , vagin al C. albicans, DNA Detect ed not detect ed abnormal Not Available [address], 03/09/2019 09:58:55 02/29/2003/09/2019 bacte rial vagin osis + vagin itis panel , vagin al C. glabrata, DNA Not Detect ed not detect ed Not Available [address], 03/09/2019 09:58:55 02/29/2003/09/2019 bacte rial vagin osis + vagin itis panel , vagin al C. tropicalis, DNA Not Detect ed not detect ed Not Available [address], 03/09/2019 09:58:55 02/29/2003/09/2019 bacte rial vagin osis + vagin itis panel , vagin al C. parapsilosis , DNA Not Detect ed not detect ed This test was devel oped and its benigno tical perfo rmanc e adriana cteri stics have been deter mined by Dustin trejo [place], [place]. It has not been clear ed or appro celestina by the FDA. This assay has been valid ated pursu ant to the CLIA regul ation s and is used for clini radha purpo ses. Not Available [facility] [address] [place], [place], [facility] 03/09/2019 09:58:55 02/29/20 19 03/09/2019 bacte rial vagin osis + vagin itis panel , vagin al sureswab (R) trichomonas vag RNA,ql,tma Not Detect ed not detect ed This test was perfo rmed using the APTIM A Trich omona s vagin murtaza Assay (Gen- Probe ). For more infor paulino helton on this test, go to http: //[facility] sebas helton.que stdia gnost ics.c om/fa q/ Trich omona stma Not Available [facility] [address] [place], [place], [facility] 03/09/2019 09:58:55 Result Notes None recorded. Procedures Surgical History Date Name Laterality Status Provider Name and Address Organization Details Recorded Time LEEP completed Mary Lund MD [address] [place] [address], [address] [place] [address] 11/24/2017 11:55:27 Hysteroscopy biopsy completed Mary Lund MD [address] [place] [address], [address] [place] [address] 11/24/2017 11:56:53 Imaging Results None recorded. Procedure Notes None recorded. Medical Equipment None Reported. Allergies Allergen ID Allergen Name Allergen Category Reaction Reaction Severity Criticality Documentation Date Start Date Code Code System Note Provider Name and Address Organization Details Recorded Time 2670674 Medicinal product containin g penicilli n and acting as antibacte rial agent (product) medicatio n Not available Not available Not available 11/24/2017 27117 05 SNOMED Clemencia Misbah marcus, [facility] 8 11:47:53 Medications Name Sig Start Date [...] Updated DateTime 12/28/2017 157.48 cm 28.3 kg/m2 84898.82 g 122 mm[Hg] 78 mm[Hg] Clemencia Beyer [facility] 8 14:50:03 Date Recorded Body height Body mass index (BMI) Body weight Systolic blood pressure Diastolic blood pressure Provider Name and Address Organization Details Last Updated DateTime 04/06/2018 157.48 cm 28.3 kg/m2 12307.82 g 122 mm[Hg] 78 mm[Hg] Clemencia Beyer [facility] 8 09:03:02 Date Recorded Body height Body mass index (BMI) Body weight Systolic blood pressure Diastolic blood pressure Provider Name and Address Organization Details Last Updated DateTime 11/17/2018 157.48 cm 28.3 kg/m2 36707.82 g 122 mm[Hg] 80 mm[Hg] Clemencia Beyer [facility] 9 11:43:26 Date Recorded Body height Systolic blood pressure Diastolic blood pressure Provider Name and Address Organization Details Last Updated DateTime 11/22/2018 157.48 cm 122 mm[Hg] 80 mm[Hg] Clemencia Beyer [facility] 11/22/2018 09:34:33 Date Recorded Body height Systolic blood pressure Diastolic blood pressure Provider Name and Address Organization Details Last Updated DateTime 02/28/2019 157.48 cm 120 mm[Hg] 78 mm[Hg] Clemencia Beyer [facility] 02/28/2019 14:10:07 Social History Question Answer Notes LastModified by Organizat ion Details LastModified Time Tobacco Smoking Status Never Smoker Mary Lund MD [address] [facility], [address] Floor, [place], [address], [place] [facility] 11/24/2017 11:55:05 What Is Your Level Of Alcohol Consumption? Occasional [email or web address] Information not available 11/24/2017 Drug Use? No [email or web address] Information no t available 11/24/2017 What Was [...] Diagnosis/Indication Diagnosis SNOMED-CT Code Diagnosis ICD10 Code [id number] Mary Lund MD [facility] [place] [address] 11/24/2017 11:40:26 11/24/2017 12:16:00 Candidiasis of vagina 14196256 B37.3 Vaginal discharge 530362 006 N89.8 [id number] Mary Lund MD [facility] [address] 12/28/2017 14:42:18 12/28/2017 15:24:26 Vaginal discharge 603827127 N89.8 [id number] Mary Lund MD [facility] [address] 04/06/2018 08:59:15 04/06/2018 09:20:36 Vaginitis 26324576 N76.0 Ectropion of cervix 7934 2005 N86 [id number] Mary Lund MD [facility] [place], [place] [address], [place] [address] 11/17/2018 11:26:47 11/17/2018 12:23:58 Urine test negative 079762999 Z32.02 Vaginal discharge 760904 006 N89.8 [id number] Mary Lund MD [facility] [address] [facility] [address] [place] [address] 11/22/2018 09:23:37 11/22/2018 09:44:50 Vaginal discharge 538200605 N89.8 [id number] Mary Lund MD CWO[facility] [address] [facility] [address] [place] [address] 02/28/2019 14:01:25 02/28/2019 14:27:03 Urine test negative 533437702 Z32.02 Vaginal discharge 630482 006 N89.8 Health Concerns Section Related Observation LastModified by Organization Detai ls LastModified Time None Recorded Concern Status LastModified by Organization Details LastModified Time None Recorded Advance Directives Directive None Recorded Payers Encounter Date Sequence Insurance Name Policy Number Policy Otto Covered Member ID Otto Member ID Guarantor Name 12/28/2017 1 [employer] (POS) [id number] Randy Juan [id number] Yi Drake 04/06/2018 1 [employer] (POS) [id number] Randy Giuseppearon [id number] 7 Yi Giuseppearon 11/17/2018 1 [employer] (POS) [id number] Randy Giuseppearon [id number] Yi Drake 11/22/2018 1 [employer] (POS) [id number] Randy Giuseppearon [id number] 7 Yi Giuseppearon 02/28/2019 1 [employer] (POS) [id number] [id number] Yi Drake Notes Date Note Type Note Provider Name and Address Organization Details Recorded Time 12/28/2017 text/html the patient returns today she is on diflucan suppression and she used used the cream for a week only she feels better externally but still has discharge Mary Lund MD [address] [place] [address], [address] Floor, [place], [address], [place] [facility] 12/28/2017 17:01:54 04/06/2018 text/html the patient is here today for follow up she is using diflucan twice a week no itching or burning but small amount of discharge sexually active without difficulty does not want more children Mary Lund MD [address], [address], [facility] 04/06/2018 13:22:23 11/17/2018 text/html here for cryoablation of cervix for intractable discharge has tried multiple other modalities and has not had any success moderate ectropian on the cervix noted pt wants to try cryo for this indication consent signed Mary Lund MD [address], [address], [facility] 11/18/2018 12:04:02 11/22/2018 text/html pt here for foll ow up last week had a cryo of her cervix and probe slipped and vagina was cryoed for 2 minutes when it was noted that the probe had slipped the procedure was discontinued after 2 minutes pt was apprised of this and asked to come in today to recheck the vagina Mary Lund MD [address], [address], [facility] 11/22/2018 09:48:23 02/28/2019 text/html here for follow up wearing a pantyliner and underwear 06/04 Mary Lund MD [address], [address], [facility] 02/28/2019 14:27:56 OBGyn Episode No OBEpisode recorded.
== END 2024-09-15 10:59 | disposition home or self-care (01) ==
LOC: HO.HGS 10:53
PROVIDERS: PCP Student in an Organized Health Care Education/Training Program; Visit Provider Surgery
DX: Z12.11 Encounter for screening for malignant neoplasm of colon (principal)
CPT/HCPCS: 99211

== ENCOUNTER → 2024-09-15 10:53 | Outpatient (BNVA) | payer OTHER, SELFPAY | PROVIDERS: PCP Student in an Organized Health Care Education/Training Program; Visit Provider Surgery ==

== ENCOUNTER → 2025-02-28 07:10 | Outpatient (BNV) | payer OTHER, SELFPAY | PROVIDERS: PCP Student in an Organized Health Care Education/Training Program; Visit Provider Radiology Diagnostic Radiology | DX: M25.462 Effusion, left knee (principal) | CPT/HCPCS: 73721 ==

== ENCOUNTER 2025-02-28 07:16 | Outpatient (REF) | payer OTHER, SELFPAY ==
--- NOTE | ~2025-02-28 | MR_ITS ---
EXAMINATION: MR KNEE WITHOUT CONTRAST, LEFT CLINICAL INFORMATION: Swelling and pain, effusion, times a couple months. COMPARISON: None available. TECHNIQUE: MRI of the left knee without contrast was performed using routine sequences on a 1.5 Jael Siemens high-field scanner. FINDINGS: MENISCI: Medial Meniscus: Intact and normal in signal without definite tear. Lateral Meniscus: Intact and normal in signal without definite tear. LIGAMENTS: Anterior Cruciate: Intact and normal in signal. Posterior Cruciate: Intact and normal in signal. Medial Collateral: Intact and normal in signal. Lateral Collateral Complex: The conjoined tendon, biceps femoris tendon, fibular collateral ligament, and popliteus tendon are all intact and normal in signal. EXTENSOR MECHANISM: Extensor mechanism is intact. Hoffa's fat pad is normal in signal. The suprapatellar fat pad, and prefemoral fat pads are normal in signal. PATELLAR RETINACULUM: Bilaterally intact and normal in signal. The medial patellofemoral ligament is intact. BONE: There are no regions of gross bone marrow edema to suggest contusion or fracture. There are no gross foci of subchondral bone plate edema identified. No abnormal infiltrating bone marrow signal. JOINTS/CARTILAGE: Medial Compartment: Early degenerative arthritis is present with mild cartilage thinning of the weightbearing medial femoral condyle and medial tibial plateau. There are no full-thickness defects. There are small marginal osteophytes. Lateral Compartment: Minimal degenerative arthritis present, with gross preservation of cartilage. There are tiny marginal osteophytes present. Patellofemoral Compartment: Mild to moderate changes of osteoarthrosis present with near full-thickness cartilage loss of the lateral patellar facet, and lateral trochlea. There are lateral greater than medial small productive marginal osteophytes. JOINT FLUID AND BURSAE: There is a small amount of increased joint fluid in the suprapatellar bursa. There are no additional bursal abnormalities. OTHER: There is no abnormal fluid collection within the popliteal fossa. The musculature is normal in signal. MR/MR knee LT wo con IMPRESSION: 1. There is no internal derangement within the knee. Ligamentous structures, and menisci are intact. 2. There is mild to moderate patellofemoral degenerative arthritis, and mild medial greater than lateral compartment degenerative arthritis. 3. There is a small suprapatellar joint effusion. Electronically signed by: Jose Rose MD 02/28/2025 08:29 AM EDT RP
--- OUTSIDE RECORDS SUMMARY | 2025-02-28 07:19 | XMS_ITS | Encounter Summary ---
Author Organization [facility] Address [address] [place] [address] Care Team Providers Care Stockroom Clerk Name Role Phone Rehana Arriaga APRN Primary Care Provider Rehana Arriaga APRN Unavailable [phone] Pcp, No Primary Care Provider Unavailabl e Vida Ponce DO Primary Care Provider [phone] Castillo Fuller MD Unavailable [phone] Mychart, Generic Provider Unavailable [phone] Zamzam Escobar [facility] Unavailable [phone] Nirali Vo DO Primary Care Provider + [phone] Encounter Details Date Type Department Care Team (Late st Contact Info) Description 04/14/2016 Scanned Document [address] [id number] Provider, Generic Social History Tobacco Use Types Packs/Day Years Used Date Smoking Tobacco: Never Alcohol Use Standard Drinks/Week Comments Yes 0 (1 standard drink = 0.6 oz pur e alcohol) Comments No Sex and Gender Information Value Date Recorded Sex Assigned at Female 05/30/2024 10:22 AM EDT Legal Sex Female 7:01 PM EDT Gender Identity Not on file Sexual Orientation Choose not to disclose 2024 8:34 AM EST documented as of this encounter Plan of Treatment Upcoming Encounters Date Type Department Care Team (Late st Contact Info) Description 03/30/2025 11:15 AM EDT Office Visit [facility] [address] [facility] [place] [address] Nirali Vo DO [address] [place] [address] 06/08/2025 1:30 PM EDT Office Visit [facility] Department Of Clarification Operator [place] [address] [facility] [place] [place] [address] Castillo Fuller MD [address] [place] [address] documented as of this encounter Visit Diagnoses Not on filedocumented in this encounter Care Teams Stockroom Clerk Relationship Specialty Start Date End Date Rehana Arriaga APRN [address] [place] [address] PCP - General Internal Medicine 04/19/15 08/17/17 Pcp, Karolyn PCP - General General Medicine 08/18/17 02/06/21 Vida Ponce DO [address] [place] [address] PCP - General Family Medicine 02/07/21 07/21/24 Nirali Vo DO [address] [place] [address] PCP - General Family Medicine 07/22/24 Rehana Arriaga APRN [address] [place] [address] Internal Medicine 04/19/15 02/06/21 Castillo Fuller MD [address] [place] [address] Physician Obstetrics and Gynecology 02/07/21 Иван Carmen MD [address] [place] [address] Referring Provider Liquefaction And Regasification Helper 09/25/22 Zamzam Escobar [facility] [address] [place] [address] Primary Education Professor Clinical Social Work 10/13/22 documented as of this encounter
== END 2025-02-28 07:17 | disposition home or self-care (01) ==
LOC: HO.MRI 07:16
PROVIDERS: PCP Student in an Organized Health Care Education/Training Program; Visit Provider Student in an Organized Health Care Education/Training Program
DX: M25.562 Pain in left knee (principal); G89.29 Other chronic pain
CPT/HCPCS: 73721

== ENCOUNTER 2025-03-08 13:41 | Outpatient (AMB) | payer OTHER, SELFPAY ==
--- NOTE | 2025-03-08 13:45 | MHC.OFFVIS ---
Vital Signs 03/08/25 13:49 Height 5 ft 2 in Weight 180 lb BMI 32.9 Intake Visit Reasons: Left knee pain and giving way Intake Note: Yi is a 44 year old female who presents with complaints of progressively worsening left knee pain and giving way. The patient states that her pain has gotten worse over the last year. She thinks that she may have injured her knee while working out at the gym. She has not been able to work out recently because of her pain. Most of the pain is along the anterior and medial aspects of her knee. She has tried Tylenol and meloxicam which gave her minimal relief. She has also tried physical therapy exercises which aggravated her pain. She states that her left knee will give out or lock at times. Allergies Penicillins Adverse Reaction (Verified 03/08/25 13:47) diff breathing Medication List - Last Reviewed 03/08/25 by JUANJO Frank escitalopram oxalate 10 mg PO DAILY meloxicam 15 mg PO DAILY phentermine 37.5 mg PO DAILY [facility] Medical History Anxiety Colon cancer screening No pertinent past medical history Surgical History History of colonoscopy (~09/02/24) History of surgery on right wrist History of hysteroscopy Status post incision and drainage Social History Alcohol intake: current Alcohol intake frequency: holidays/special occasions only Patient Tobacco Use Status: Never used Tobacco Current occupational status: employed 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 Physical Exam Vital Signs: BMI result Body Mass Index 32.9 Const Other: Well-nourished well-developed very friendly female awake alert and oriented x3 in no acute distress Extrem Other: Bilateral lower extremity examination shows good capillary refill, no skin lesions noted, normal sensation light touch Left knee examination shows a minimal effusion, mild crepitus with range of motion, tenderness along her medial joint line, positive Rebeca's test, no instability Results Reviewed Results Reviewed: Standing full weight-bearing x-rays of the patient's left knee show mild diffuse joint space narrowing, no acute bony abnormalities MRI of the patient's left knee shows mild degenerative changes as well as a tear of the medial meniscus Assessment & Plan Assessment & Plan (1) Tear of medial meniscus of left knee: Code(s): S83.242A - Other tear of medial meniscus, current injury, left knee, initial encounter Category: Medical Plan Ms. Juan presents with left knee pain and mechanical symptoms due to a medial meniscus tear. I had a lengthy discussion with the patient regarding the treatment options. At this point she appears to be failing continued non operative treatments. The risks and benefits of left knee arthroscopic surgery were discussed at length with the patient. The patient is considering proceeding with surgery later this year. She will contact my office to pick a surgery date if she chooses to do so. Surgery will involve left knee arthroscopic partial medial meniscectomy. She will continue with her activity modifications in the meantime. Feel free to call me at any time should questions regarding her orthopedic management arise. Thank you very much for asking me to see this very friendly patient. I spent 22 minutes in reviewing the patient's records and imaging studies, seeing the patient and documenting in the medical record. Coding Level of Care Code New Pt Level 3 (05712) Complex EM visit Add On G2211 Diagnoses Tear of medial meniscus of left knee S83.242A
[2025-03-08 13:49] VITALS: BMI 32.9
--- OUTSIDE RECORDS SUMMARY | 2025-03-08 16:13 | XMS_ITS | Encounter Summary ---
Author Organization [facility] Address [address] [place] [address] Care Team Providers Care Take Off Man Name Role Phone Rehana Arriaga APRN Primary Care Provider Rehana Arriaga APRN Unavailable [phone] Pcp, No Primary Care Provider Unavailabl e Vida Ponce DO Primary Care Provider [phone] Castillo Fuller MD Unavailable [phone] Mychart, Generic Provider Unavailable [phone] Zamzam Escobar [facility] Unavailable [phone] Nirali Vo DO Primary Care Provider [phone] Encounter Details Date Type Department Care Team (Late st Contact Info) Description 04/14/2016 Scanned Document [address] [phone] Provider, Generic Social History Tobacco Use Types [...] Description 03/30/2025 11:15 AM EDT Office Visit [facility] [address] [facility] [place] [address] Nirali Vo DO [address] [place] [address] 06/08/2025 1:30 PM EDT Office Visit [facility] Physicians Department Of Seed Technician [place] [address] [place] [phone] Castillo Fuller MD [address] [facility] [place] [address] documented as of this encounter Visit Diagnoses Not on filedocumented in this encounter Care Teams Take Off Man Relationship Specialty Start Date End Date Rehana Arriaga APRN [address] [place] [address] PCP - General Internal Medicine 04/19/15 08/17/17 Pcp, Karolyn PCP - General General Medicine 08/18/17 02/06/21 Vida Ponce DO [address] [place] [address] PCP - General Family Medicine 02/07/21 07/21/24 Nirali Vo DO [address] [place] [address] PCP - General Family Medicine 07/22/24 Rehana Arriaga APRN [address] [place] [address] Internal Medicine 04/19/15 02/06/21 Castillo Fuller MD [address] [place] [address] Physician Obstetrics and Gynecology 02/07/21 Иван Carmen MD [address] [place] [address] Referring Provider Insurance Professional 09/25/22 Zamzam Escobar [facility] [address] [place] [address] Human Resources Services Specialist Clinical Social Work 10/13/22 documented as of this encounter
== END 2025-03-08 14:06 | disposition home or self-care (01) ==
LOC: HO.HOS 13:42
PROVIDERS: PCP Student in an Organized Health Care Education/Training Program; Visit Provider Orthopaedic Surgery
DX: S83.242A Other tear of medial meniscus, current injury, left knee, initial encounter (principal)
CPT/HCPCS: 99203

== ENCOUNTER 2025-06-30 07:31 | Day surgery (SDC) | payer OTHER, SELFPAY ==
[2025-06-27 10:30] VITALS: BMI 30.2
[2025-06-30] VITALS (13 sets, daily range): BP systolic 113–138; BP diastolic 66–88; PULSE 68–78; RESP 13–21; TEMP 36.3–36.9; O2SAT 93–100
[2025-06-30] MEDS: Lactated Ringers 1,000 ML 100 ML IVCONT (08:09)
[2025-06-30 08:11] LABS: UPreg QC Valid y
--- NOTE | 2025-06-30 08:55 | HO.ANESPROP2 ---
Documented by User: Terri Chapa NP 06/27/25 13:06 HPI - Anesthesia Eval Consult details Narrative: 45yo F for Left Knee Arthroscopy,partial Medial meniscectomy, 06/30/25 PMFSH Active Problems Active Problems: All Active Problems Tear of medial meniscus of left knee (Acute) Colon cancer screening (Acute) Stiffness of right wrist joint (Acute) Ganglion cyst of dorsum of right wrist (Acute) Past Medical History Medical History IUD (intrauterine device) in place Arthritis Anxiety Family History Family history of problems with anesthesia: No Surgical History Surgical History History of colonoscopy (~09/02/24) History of surgery on right wrist History of hysteroscopy Status post incision and drainage History of Problems with Anesthesia: No Social History Social History Are you a primary weekend caregiver to a significant other at home: No Do you presently have visiting nurse or other home services: No Alcohol intake: current Alcohol intake frequency: holidays/special occasions only Patient Tobacco Use Status: Never used Tobacco Use of substances other than those prescribed or required for medical reasons: Yes Substance Use Type Other:: occasional marijuana gummies-advised to hold pre-op Substance Use Frequency: Occasionally Have you been hit, kicked, punched, or otherwise hurt by someone within the past year? 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 Allergies Allergy/AdvReac Type Severity Reaction Status Date / Time Penicillins Allergy Severe hives/facial Verified 06/27/25 10:30 swelling Home Medications ?Medication ?Instructions ?Recorded ?Confirmed ?Last Taken ?Type escitalopram oxalate 10 mg tablet 10 mg PO DAILY 03/08/25 06/30/25 06/29/25 20:00 History meloxicam 15 mg tablet 15 mg PO DAILY 03/08/25 06/27/25 06/23/25 History phentermine 37.5 mg capsule 37.5 mg PO DAILY 03/08/25 06/30/25 06/29/25 20:00 History cyanocobalamin (vitamin B-12) 500 500 mcg PO DAILY 06/27/25 06/27/25 Unknown History mcg tablet (Vitamin B-12) lactobacillus comb no.10 20 20,000 mmu cells PO DAILY 06/27/25 06/27/25 Unknown History billion cell capsule (Probiotic) omega 3-brp-mxb-fish oil 300 1 cap PO DAILY 06/27/25 06/27/25 06/23/25 History mg-1,000 mg capsule (Fish Oil) turmeric root extract 500 mg 500 mg PO DAILY 06/27/25 06/27/25 06/23/25 History capsule vitamin D2 20 mcg-vitamin K1 120 4 drp PO DAILY 06/27/25 06/27/25 Unknown History mcg/4 drops oral Exam Height,Weight and Vital Signs: Height 5 ft 2 in Weight 74.843 kg Assessment and Plan Assessment Anesthesia Assessment: Chart Reviewed Final Anesthetic Review Family History of Problems with Anesthesia: No History of Problems with Anesthesia: No Documented by User: Guera Kerns DO 06/30/25 09:12 [facility] Past Medical History Medical History IUD (intrauterine device) in place Arthritis Anxiety Family History Family history of problems with anesthesia: No Surgical History Surgical History History of colonoscopy (~09/02/24) History of surgery on right wrist History of hysteroscopy Status post incision and drainage History of Problems with Anesthesia: No Social History Social History Are you a primary weekend caregiver to a significant other at home: No Do you presently have visiting nurse or other home services: No Alcohol intake: current Alcohol intake frequency: holidays/special occasions only Patient Tobacco Use Status: Never used Tobacco Use of substances other than those prescribed or required for medical reasons: Yes Substance Use Type Other:: occasional marijuana gummies-advised to hold pre-op Substance Use Frequency: Occasionally Have you been hit, kicked, punched, or otherwise hurt by someone within the past year? 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 Allergies Allergy/AdvReac Type Severity Reaction Status Date / Time Penicillins Allergy Severe hives/facial Verified 06/27/25 10:30 swelling Home Medications ?Medication ?Instructions ?Recorded ?Confirmed ?Last Taken ?Type escitalopram oxalate 10 mg tablet 10 mg PO DAILY 03/08/25 06/30/25 06/29/25 20:00 History meloxicam 15 mg tablet 15 mg PO DAILY 03/08/25 06/27/25 06/23/25 History phentermine 37.5 mg capsule 37.5 mg PO DAILY 03/08/25 06/30/25 06/29/25 20:00 History cyanocobalamin (vitamin B-12) 500 500 mcg PO DAILY 06/27/25 06/27/25 Unknown History mcg tablet (Vitamin B-12) lactobacillus comb no.10 20 20,000 mmu cells PO DAILY 06/27/25 06/27/25 Unknown History billion cell capsule (Probiotic) omega 9-uon-dve-fish oil 300 1 cap PO DAILY 06/27/25 06/27/25 06/23/25 History mg-1,000 mg capsule (Fish Oil) turmeric root extract 500 mg 500 mg PO DAILY 06/27/25 06/27/25 06/23/25 History capsule vitamin D2 20 mcg-vitamin K1 120 4 drp PO DAILY 06/27/25 06/27/25 Unknown History mcg/4 drops oral Exam Exam Date and Time: 06/30/25 0855 Height,Weight and Vital Signs: Height 5 ft 2 in Weight 74.843 kg Vital Signs Temperature 97.6 F 06/30/25 08:10 Pulse Rate 70 06/30/25 08:10 Respiratory Rate 16 06/30/25 08:10 Blood Pressure 137/88 06/30/25 08:10 Pulse Oximetry 97 06/30/25 08:10 Oxygen Delivery Method Room Air 06/30/25 08:10 Temperature 97.6 F 06/30/25 08:10 Pulse Rate 70 06/30/25 08:10 Respiratory Rate 16 06/30/25 08:10 Blood Pressure 137/88 06/30/25 08:10 Pulse Oximetry 97 06/30/25 08:10 Oxygen Delivery Method Room Air 06/30/25 08:10 Airway Mallampati Class: II TM Dist: >3cm Neck ROM: Full Loose/Missing/Broken Teeth: No (patient drnies any loose or broken teeth) Heart: S1S2 Lungs: CTAB Assessment and Plan Assessment Anesthesia Assessment: Anesthesia Plan Discussed and Chart Reviewed Final Anesthetic Review Family History of Problems with Anesthesia: No History of Problems with Anesthesia: No NPO: Yes ASA Class: II Final Preanesthetic Review: No Changes in Pt Med Stat, Meds/Allgs Chart Reviewed, Consent Obtained/Reviewed and Anes Risks/Benef Reviewed Patient Risk: Low Procedure Risk: Low Anesthetic Plan Anesthetic Plan: GA and Agree w/ Assess. and Plan Disposition: Standard PACU
--- NOTE | 2025-06-30 10:06 | P.BOP_ITS ---
Brief Operative Note Date of Service: 06/30/25 Pre-op diagnosis: Left knee medial meniscus tear, left knee degenerative joint disease Post-op diagnosis: same Procedure: Left knee arthroscopic partial medial meniscectomy, left knee arthroscopic chondroplasty of the undersurface of the patella as well as the medial femoral condyle Implants: none Surgeon: Thierry Holder MD Anesthesia: GLMA Was an Vending Machine Refiller used for this Procedure?: No Estimated blood loss (mL): 10 Pathology: none sent Condition: stable Disposition: PACU
--- NOTE | 2025-06-30 10:07 | W.PM.OPN ---
Operative Note Operative Note Date of Service: 06/30/25 Narrative: After the patient was identified as Yi Juan and her left knee was initialed by myself they were brought to the operating room where general anesthesia was induced by the anesthesiologist in routine fashion. Because of the patient's allergy to penicillin she was given 900 mg of IV clindamycin preoperatively for infection prophylaxis. The patient's left lower extremity was prepped and draped in sterile fashion. A formal time-out was completed. Marcaine was injected into the planned incision sites as well as the patient's left knee joint. A #11 scalpel blade was used to make an anterolateral portal 1 cm proximal to the joint line and 1 cm lateral to the patellar tendon. Blunt trocar technique was used to enter the suprapatellar pouch with the knee in extension. Diagnostic arthroscopy showed multiple bands of thickened plica which would be excised at the end of the procedure. There were no loose bodies or abnormalities found in either the medial or lateral gutters. The articular surface of the patella showed diffuse grades 3 and 4 degenerative changes. The trochlear groove articular surface showed diffuse grades 1 and 2 degenerative changes. The patient's knee was flexed to 45 degrees and a valgus force was placed upon it. The medial compartment was entered. An anteromedial portal was made 1 cm proximal to the joint line and 1 cm medial to the patellar tendon. Probing of the medial meniscus showed a radial tear of the anterior horn. A partial medial meniscectomy was performed using the arthroscopic shaver. Following the partial meniscectomy the remainder of the meniscus tissue was stable. There were diffuse grades 1 and 2 degenerative changes of the medial femoral condyle as well as grades 1 and 2 degenerative changes of the medial tibial plateau. The articular surface of the medial femoral condyle was then made smooth using the arthroscopic shaver. The articular surface of the medial tibial plateau was already smooth so no chondroplasty was indicated. The patient's knee was placed into a neutral position. There was degenerative fraying of the anterior cruciate ligament measuring approximately 20% of the tendon width. The frayed fibers were debrided using the arthroscopic shaver. Following the debridement the remainder of the ligament fibers were intact. The patient's knee was then placed in the figure of 4 position and the lateral compartment was entered. There was no evidence of lateral meniscus tearing. There were minimal degenerative changes of the lateral femoral condyle and lateral tibial plateau. The patient's knee was once again brought into extension and the suprapatellar pouch was entered. The arthroscopic shaver and the ArthroCare Wand were used to excise the thickened bands of plica. The undersurface of the patella was then made smooth using the arthroscopic shaver. The articular surface of the trochlear groove was already smooth so no chondroplasty was indicated. The knee joint was irrigated and then drained. All arthroscopic instruments were removed. The 2 portals were closed with 3-0 nylon interrupted suture. The knee joint was injected with Marcaine. Dry sterile dressing and Krunal bandages were placed over the patient's knee. The patient was awoken and extubated in the operating room. The patient was transferred to the recovery room in stable condition.
[2025-06-30] MEDS: oxyCODONE HCl Immed Release 5 MG TABLET PO (10:31)
== END 2025-06-30 11:10 | disposition home or self-care (01) ==
PROVIDERS: Nurse Practitioner; Visit Provider Orthopaedic Surgery
PROC: (CPT 29870; principal; 2025-06-30 09:00)
DX: S83.242A Other tear of medial meniscus, current injury, left knee, initial encounter (principal); M17.12 Unilateral primary osteoarthritis, left knee; M67.52 Plica syndrome, left knee; M25.562 Pain in left knee; M23.52 Chronic instability of knee, left knee; X58.XXXA Exposure to other specified factors, initial encounter; Y93.B1 Activity, exercise machines primarily for muscle strengthening; Y92.39 Other specified sports and athletic area as the place of occurrence of the external cause; Y99.9 Unspecified external cause status; F41.9 Anxiety disorder, unspecified; Z79.899 Other long term (current) drug therapy; Z88.0 Allergy status to penicillin; Z98.890 Other specified postprocedural states
CPT/HCPCS: 29881; 81025; J0131; J0165; J0736; J1100; J1885; J2003; J2250; J2405; J2704; J2795; J3010

== ENCOUNTER → 2025-06-30 07:31 | Outpatient (BNV) | payer OTHER, SELFPAY | PROVIDERS: Visit Provider Orthopaedic Surgery | DX: S83.242A Other tear of medial meniscus, current injury, left knee, initial encounter (principal) | CPT/HCPCS: 29881 ==

== ENCOUNTER 2025-07-14 11:34 | Outpatient (AMB) | payer OTHER, SELFPAY ==
--- OUTSIDE RECORDS SUMMARY | 2022-12-09 15:28 | XMS_ITS | Encounter Summary ---
Author Organization [facility] Address [address] [place] [address] Care Team Providers Care [employer]iner[employer] General Supervisor Name Role Phone Vida Ponce DO Primary Care Provider Castillo Fuller MD Unavailable [phone] Kermit, Generic Provider Unavailable [phone] Zamzam Escobar [facility] Unavailable [phone] Encounter Details Date Type Department Care Team (Late st Contact Info) Description 12/09/2022 3:28 PM EDT Hospital Encounter [facility] [address] [place] [id number] Dian Haney PA [address] [place] [address] Social History Tobacco Use Types Packs/Day Years Used Date Smoking Tobacco: Never Smokeless Tobacco: Never Alcohol Use Standard Drinks/Week Comments Not Currently 0 (1 standard drink = 0.6 oz pur e alcohol) [facility] Utilities Answer Date Recorded In the past 12 months has [employer] electric, gas, oil, or water company threatened to shut off services in your home? No 03/27/2025 Social Connection and Isolation Panel Answer Date Recorded In a typical week, how many times do you talk on the phone with family, friends, or neighbors? More than three times a week 03/27/2025 Frequency of Social Gatherin gs with Friends and Family Not on file 03/27/2025 Attends Baptism Services Not on file 03/27 Active Member [...] place to sleep or slept in a group home (including now)? No 10/13/2022 Housing Stability Vital Sign Answer Nico e Recorded In the last 12 months, was t here a time when you were not able to pay the mortgage or rent on time? No 03/27/2025 In the past 12 months, how m any times have you moved where you were living? 0 03/27/2025 At any time in the past 12 m [facility], were you homeless or living in a group home (including now)? No 03/27/2025 Physical Activity Answer [...] Master's degree (e.g., MA, MS, Angel, MEd, AERONAUTICS COMMISSION DIRECTOR, LAUREN) 03/27/2025 Comments No Sex and Gender [...] Not at all 10/03/2024 11:07 AM EST El-Monique, Jhon gifford H, DO PHQ-9 Total Score 2 10/03/2024 11:07 AM EST Mychart, Generic documented as of this encounter Plan of Treatment Upcoming Encounters Date Type Department Care Team (Late st Contact Info) Description 07/21/2025 11:00 AM EST Evaluation [facility] [address] [facility] [place] [address] Kusum Cagle, PT [address] [facility] [place] [address] 07/28/2025 8:00 AM EST Treatment [facility] [address] [facility] [place] [address] Kusum Cagle, PT [address] [facility] [place] [address] 08/04/2025 2:00 PM EST Treatment [facility] [address] [facility] [place] [address] Kusum Cagle, PT [address] [facility] [place] [address] 08/11/2025 12:30 PM EST Treatment [facility] [address] [facility] [place] [address] Kusum Cagle, PT [address] [facility] [place] [address] 08/18/2025 12:30 PM EST Treatment [facility] [address] [facility] [place] [address] Kusum Cagle, PT [address] [facility] [place] [address] 08/25/2025 1:00 PM EST Office Visit [address] [place] [address] El-Monique, Nirali H, DO [address] [place] [address], [place] [address] 10/11/2025 8:30 AM EST Office Visit [address] [place] [address] El-Monique, Nirali H, DO [address] [place] [address], [place] [address] documented as of this encounter Procedures Procedure [...] on filedocumented in this encounter Care Teams [employer] General Supervisor Relationship Specialty Start Date End Date Vida Ponce DO [address] [place] [address] PCP - General Family Medicine 02/07/21 07/21/24 Castillo Fuller MD [address] [place] [address] Physician Obstetrics and Gynecology 02/07/21 Иван Carmen MD [address] [place] [id number] Referring Provider Escrow Agent 09/25/22 Zamzam Escobar LCSW [address] [place] [address] Ship Purser Clinical Social Work 10/13/22 06/20/25 documented as of this encounter
--- NOTE | 2025-07-14 11:43 | A.OFFVIS_ITS ---
Intake Visit Reasons: PO-Lt Knee 06/30/25 DR Intake Note: Yi is a 45 year old female who presents today post operatively after undergoing a left knee arthroscopy performed by Dr. Holder on 06/30/25. Patient reports feeling some tightness and a tingling sensation, however overall she is doing very well. States that she only needed her pain medication for the first day. Allergies Penicillins Allergy (Severe, Verified 07/14/25 11:46) hives/facial swelling Medication List - Last Reconciled 07/14/25 by Mino Salavdor PA-C cyanocobalamin (vitamin B-12) (Vitamin B-12) 500 mcg PO DAILY escitalopram oxalate 10 mg PO DAILY lactobacillus comb no.10 (Probiotic) 20,000 mmu cells PO DAILY meloxicam 15 mg PO DAILY omega 3-bfc-orz-fish oil 300-1,000 mg (Fish Oil) 1 cap PO DAILY oxycodone 5 mg PO Q6H PRN phentermine 37.5 mg PO DAILY turmeric root extract 500 mg PO DAILY vitamin D2-vitamin K1 20-120 mcg/4 drops 4 drps PO DAILY HPI HPI PO-Lt Knee 06/30/25 DR: Details: A 45-year-old female returns to the office today status post left knee arthroscopy on 06/30/[address] Holder. Patient states she is doing well however she does have some discomfort in the patellar tendon. [facility] Medical History IUD (intrauterine device) in place Arthritis Anxiety Surgical History History of colonoscopy (~09/02/24) History of surgery on right wrist History of hysteroscopy Status post incision and drainage Social History Are you a primary home care administrator to a significant other at home: No Do you presently have visiting nurse or other home services: No Alcohol intake: current Alcohol intake frequency: holidays/special occasions only Comment: tolerable; medicated with po prior to discharge Patient Tobacco Use Status: Never used Tobacco Current occupational status: employed 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 No erythema or drainage. She has full range of motion. No joint effusion present. Calf supple nontender neurovascularly intact Results Reviewed Results Reviewed: Brief Operative Note Date of Service: 06/30/25 Pre-op diagnosis: Left knee medial meniscus tear, left knee degenerative joint disease Post-op diagnosis: same Procedure: Left knee arthroscopic partial medial meniscectomy, left knee arthroscopic chondroplasty of the undersurface of the patella as well as the medial femoral condyle Implants: none Surgeon: Thierry Holder MD Assessment & Plan Assessment & Plan (1) Tear of medial meniscus of left knee: Code(s): S83.242A - Other tear of medial meniscus, current injury, left knee, initial encounter Category: Medical Plan: Sutures removed today Steri-Strips applied. I offered a course of physical therapy to work on motion, strength and conditioning exercises. An order was placed in the patient was advised to make an appointment. The patient will refrain from repetitive for the next 4-6 weeks, at which point they will return to see Dr. Holder, sooner if needed. Orders: Orders PT Evaluation and Treatment Today S83.242A - Other tear of medial meniscus, current injury, left knee, initial encounter Coding Level of Care Code Global (71880) Diagnoses Tear of medial meniscus of left knee S83.242A
--- OUTSIDE RECORDS SUMMARY | 2025-07-14 13:11 | XMS_ITS | Encounter Summary ---
Author Organization [facility] Address [address] [place] [address] Care Team Providers Care Mammography Tech Name Role Phone Castillo Fuller MD Unavailable [phone] Иван Carmen MD Unavailable [phone] Zamzam Escobar [facility] Unavailable [phone] Nirali Vo DO Primary Care Provider [phone] Encounter Details Date Type Department Care Team (Late st Contact Info) Description 09/06/2024 Scanned Document [facility] GASTRO SCAN Gastroenterology, Scan Social History Tobacco Use Types Packs/Day Years Used Date Smoking Tobacco: Never Smokeless Tobacco: Never Alcohol Use Standard Drinks/Week Comments Yes 0 (1 standard drink = 0.6 oz pur e alcohol) AUDIT-C Answer Date Recorded Q1: How often do you have a drink containing alc ohol? Monthly or less 10/13/2022 Q2: How many drinks containi ng alcohol do you have on a typical day when you are drinking? 1 or 2 10/13/2022 Q3: How often do you have si x or more drinks on one occasion? Never 10/13/2022 Overall Financial Resource Strain (CARDIA) Answe r Date Recorded How hard is it for you to pa y for the very basics like food, housing, medical care, and heating? Not very hard 10/13/2022 PHQ-2 Answer Date Recorded PHQ-2 Total Score 1 07/22/2024 Hunger Vital Sign Answer Date Recorded Within the past 12 months, y ou worried that your food would run out before you got the money to buy more. Never true 10/13/19 23 Within the past 12 months, t he food you bought just didn't last and you didn't have money to get more. Never true 10/13/2022 PRAPARE - Transportation Answer Date Re corded Lack of Transportation (Medical) Not on file 10/13/2022 In the past 12 months, has l ack of transportation kept you from meetings, work, or from getting things needed for daily living? No 10/13/2022 Housing Stability Vital Sign Answer [...] place to sleep or slept in a alf (including now)? No 10/13/2022 Comments No Sex and Gender Information Value Date Recorded Sex Assigned at Female 05/30/2024 10:22 AM EDT Legal Sex Female 7:01 PM EDT Gender Identity Not on file Sexual Orientation Choose not to disclose 2024 8:34 AM EST documented as of this encounter Plan of Treatment Upcoming Encounters Date Type Department Care Team (Late st Contact Info) Description 07/21/2025 11:00 AM EST Evaluation [facility] [address] [place] [address] Kusum Cagle, PT [address] [place] [address] 07/28/2025 8:00 AM EST Treatment [facility] [address] [place] [address] Kusum Cagle, PT [address] [place] [address] 08/04/2025 2:00 PM EST Treatment [facility] [address] [place] [address] Kusum Cagle, PT [address] [place] [address] 08/11/2025 12:30 PM EST Treatment [facility] [address] [place] [address] Kusum Cagle, PT [address] [place] [address] 08/18/2025 12:30 PM EST Treatment [facility] [address] [place] [address] Kusum Cagle, PT [address] [place] [address] 08/25/2025 1:00 PM EST Office Visit [address] [place] [address] Nirali Vo, DO [address] [place] [address] 10/11/2025 8:30 AM EST Office Visit [address] [place] [address] Nirali Vo, DO [address] [place] [address] documented as of this encounter Visit Diagnoses Not on filedocumented in this encounter Care Teams Mammography Tech Relationship Specialty Start Date End Date El-Nirali Amaya DO [address] [place] [address] PCP - General Family Medicine 07/22/24 Castillo Fuller MD Physician Obstetrics and Gynecology 02/07/21 Иван Carmen MD [address] [place], [place] [id number] Referring Provider Director Enterprise Systems 09/25/22 Zamzam Escobar, BLOCK BOLTER MULE OPERATOR [address] [place] [address] Nodulizer Clinical Social Work 10/13/22 06/20/25 documented as of this encounter
--- OUTSIDE RECORDS SUMMARY | 2025-07-14 13:11 | XMS_ITS | Clinical Summary ---
Author Organization [facility] ity Address [address] [place] [address] Care Team Providers Care Senior Account Director Name Role Phone Unavailable Primary Care Provider Unavailabl e Social History Tobacco Use Types Packs/Day Years Used Date Smoking Tobacco: Never Assessed Comments Unknown Sex and Gender Information Value Date Recorded Sex Assigned at Not on file Legal Sex Female 11:38 PM EST Gender Identity Not on file Sexual Orientation Not on file Plan of Treatment Health Maintenance Due Date Last Done Comments Breast Cancer Screening 1979 DTaP,Tdap,and Td Vaccines (1 - Tdap) 1998 Hepatitis B Vaccines (1 of 3 - 19+ 3-dose series) 1998 Cervical Cancer Screening: P ap Smear 2000 Depression Screening 09/14/2024 COVID-19 Vaccine ( - 2023-2 5 season) 2025 Influenza Vaccine (#1) 2025 RSV Immunization Adult Patie nts (1 - 1-dose 75+ series) 2054 HIB Vaccines Aged Out No longer eligi ble based on patient's age to complete this topic HPV Vaccines Aged Out No longer eligi ble based on patient's age to complete this topic Hepatitis A Vaccines Aged Out No long er eligible based on patient's age to complete this topic IPV Vaccines Aged Out No longer eligi ble based on patient's age to complete this topic MMR Vaccines Aged Out No longer eligi ble based on patient's age to complete this topic Meningococcal ACWY Vaccine Aged Out N o longer eligible based on patient's age to complete this topic Meningococcal B Vaccine Aged Out No l onger eligible based on patient's age to complete this topic Pneumococcal Vaccine: Pediat rics (0 to 5 Years) and At-Risk Patients (6 to 49 Years) Aged Out No longer eligible b ased on patient's age to complete this topic RSV Immunization Patients Un asa 20 months Aged Out No longer eligible b ased on patient's age to complete this topic Varicella Vaccines Aged Out No longer eligible based on patient's age to complete this topic
--- OUTSIDE RECORDS SUMMARY | 2025-07-14 13:11 | XMS_ITS | Encounter Summary ---
Author Organization [facility] Address [address] [place] [address] Care Team Providers Care Technical Intern Name Role Phone Castillo Fuller MD Unavailable [phone] Иван Carmen MD Unavailable [phone] Zamzam Escobar [facility] Unavailable [phone] Nirali Vo DO Primary Care Provider [phone] Encounter Details Date Type Department Care Team (Late st Contact Info) Description 10/14/2024 Scanned Document [facility] GASTRO SCAN Gastroenterology, Scan Social History Tobacco [...] place to sleep or slept in a custodial (including now)? No 10/13/2022 Physical Activity Answer Date Recorded On average, how many days pe r week do you engage in moderate to strenuous exercise (like a brisk walk)? 0 days 10/03/2024 On average, how many minutes do you exercise per day at this level? 0 min 10/03/2024 Comments No Sex and Gender Information Value Date Recorded Sex Assigned at Female 05/30/2024 10:22 AM EDT Legal Sex Female 7:01 PM EDT Gender Identity Not on file Sexual Orientation Choose not to disclose 2024 8:34 AM EST documented as of this encounter Plan of Treatment Upcoming Encounters Date Type Department Care Team (Late st Contact Info) Description 07/21/2025 11:00 AM EST Evaluation [facility] [address] [place] [address] Kusum Cagle M, PT [address] [place] [address] 07/28/2025 8:00 AM EST Treatment [facility] [address] [place] [address] Kusum Cagle, PT [address] [facility] [place] [address] 08/04/2025 2:00 PM EST Treatment [facility] [address] [place] [address] Kusum Cagle, PT [address] [facility] [place] [address] 08/11/2025 12:30 PM EST Treatment [facility] [address] [place] [address] Kusum Cagle, PT [address] [place] [address] 08/18/2025 12:30 PM EST Treatment [facility] [address] [facility] [place] [address] Kusum Cagle, PT [address] [place] [address] 08/25/2025 1:00 PM EST Office Visit [facility] [address] [place] [address], [place] [address] Nirali Vo H, DO [address] [place] [address] 10/11/2025 8:30 AM EST Office Visit [facility] [address] [place] [address] Nirali Vo H, DO [address] [place] [address] documented as of this encounter Visit Diagnoses Not on filedocumented in this encounter Care Teams Technical Intern Relationship Specialty Start Date End Date Nirali Vo CastilloDO [address] [place] [address] PCP - General Family Medicine 07/22/24 Castillo Fuller MD Physician Obstetrics and Gynecology 02/07/21 Иван Carmen MD [address] [place], [place] [id number] Referring Provider Review Coordinator 09/25/22 Zamzam Escobar [facility] [address] [place] [address] Circulation Manager Clinical Social Work 10/13/22 06/20/25 documented as of this encounter
--- OUTSIDE RECORDS SUMMARY | 2025-07-14 13:11 | XMS_ITS | Encounter Summary ---
Author Organization [facility] Address [address] [place] [address] Care Team Providers Care Applied Computer Science Professor Name Role Phone Vida Ponce DO Primary Care Provider [phone] Castillo Fuller MD Unavailable [phone] Kermit, Generic Provider Unavailable [phone] Zamzam Escobar [facility] Unavailable [phone] Nirali Vo DO Primary Care Provider [phone] Reason for Visit * Reason Comments Medication Refill Encounter Details Date Type Department Care Team (Late st Contact Info) Description 03/07/[address] [id number] Vida Ponce DO [address] [place] [id number] Adjustment reaction with anxiety and depression Social History Tobacco Use Types Packs/Day Years [...] Answer Date Recorded PHQ-2 Total Score 1 01/05/2023 Hunger Vital Sign Answer Date Recorded Within [...] place to sleep or slept in a longterm (including now)? No 10/13/2022 Comments No Sex [...] Info) Description 07/21/2025 11:00 AM EST Evaluation [facility] [address] [place] [address] Kusum Cagle, PT [address] [place] [address] 07/28/2025 8:00 AM EST Treatment [facility] [address] [place] [place] [address] Kusum Cagle, PT [address] [place] [address] 08/04/2025 2:00 PM EST Treatment [facility] [address] [place] [address] Kusum Cagle, PT [address] [place] [address] 08/11/2025 12:30 PM EST Treatment [facility] [address] [place] [address] Kusum Cagle, PT [address] [place] [address] 08/18/2025 12:30 PM EST Treatment [facility] [address] [place] [address] Kusum Cagle, PT [address] [place] [address] 08/25/2025 1:00 PM EST Office Visit [facility] [address] [facility] [place] [address] Nirali Vo, DO [address] [place] [address] 10/11/2025 8:30 AM EST Office Visit [facility] [address] [address] Nirali Vo DO [address] [place] [address] documented as of this encounter Visit Diagnoses Diagnosis Adjustment reaction with anxiety and depression Adjustment disorder with mixed anxiety and depressed mood documented in this encounter Care Teams Applied Computer Science Professor Relationship Specialty Start Date End Date Vida Ponce DO [address] [place] [address] PCP - General Family Medicine 02/07/21 07/21/24 Nirali Vo DO [address] [place] [address] PCP - General Family Medicine 07/22/24 Castillo Fuller MD [address] [place] [address] Physician Obstetrics and Gynecology 02/07/21 Иван Carmen MD [address] [place] [address] Referring Provider Social Media Content Specialist 09/25/22 Zamzam Escobar LCSW [address] [place] [address] Warp Spinner Clinical Social Work 10/13/22 06/20/25 documented as of this encounter
--- OUTSIDE RECORDS SUMMARY | 2025-07-14 13:11 | XMS_ITS | Encounter Summary ---
Author Organization [facility] Address [address] [place] [address] Care Team Providers Care Fine Wire Drawer Name Role Phone Castillo Fuller MD Unavailable [phone] Иван Carmen MD Unavailable [phone] Zamzam Escobar [facility] Unavailable [phone] Nirali Vo DO Primary Care Provider [phone] Encounter Details Date Type Department Care Team (Late st Contact Info) Description 08/03/2024 Scanned Document [facility] GASTRO SCAN Gastroenterology, Scan Social History Tobacco [...] place to sleep or slept in a nursing home (including now)? No 10/13/2022 Comments No Sex [...] Info) Description 07/21/2025 11:00 AM EST Evaluation [facility] [address] [place] [address] Kusum Cagle, PT [address] [place] [address] 07/28/2025 8:00 AM EST Treatment [facility] [address] [place] [address] uKsum Cagle, PT [address] [place] [address] 08/04/2025 2:00 PM EST Treatment [facility] [address] [place] [address] Kusum Cagle, PT [address] [place] [address] 08/11/2025 12:30 PM EST Treatment [facility] [address] [place] [address] Kusum Cagle, PT [address] [place] [address] 08/18/2025 12:30 PM EST Treatment [facility] [address] [place] [address] Kusum Cagle, PT [address] [place] [address] 08/25/2025 1:00 PM EST Office Visit [address] [place] [address] Nirali Vo, DO [address] [place] [address] 10/11/2025 8:30 AM EST Office Visit [address] [place] [address] Nirali Vo, DO [address] [place] [address] documented as of this encounter Visit Diagnoses Not on filedocumented in this encounter Care Teams Fine Wire Drawer Relationship Specialty Start Date End Date El-Nirali Amaya DO [address] [place] [address] PCP - General Family Medicine 07/22/24 Castillo Fuller MD Physician Obstetrics and Gynecology 02/07/21 Иван Carmen MD [address] [place], [place] [id number] Referring Provider Control Clerk Food And Beverage 09/25/22 Zamazm Escobar, FOUNDRY MANAGER [address] [place] [address] Litigation Support Analyst Clinical Social Work 10/13/22 06/20/25 documented as of this encounter
--- OUTSIDE RECORDS SUMMARY | 2025-07-14 13:11 | XMS_ITS | Encounter Summary ---
Author Organization [facility] Address [address] [place] [address] Care Team Providers Care Ferryboat Deckhand Name Role Phone RosarioJavierVida DO Primary Care Provider [phone] Castillo Fuller MD Unavailable [phone] Kermit, Generic Provider Unavailable [phone] Zamzam Escobar [facility] Unavailable [phone] Nirali Vo DO Primary Care Provider [phone] Encounter Details Date Type Department Care Team (Late st Contact Info) Description 06/07/2021 Scanned Document [facility] PRIMARY CARE SCAN Primary Care, Scan Social History Tobacco Use Types Packs/Day Years Used Date Smoking Tobacco: Never Smokeless Tobacco: Never Alcohol Use Standard Drinks/Week Comments Yes 0 (1 standard drink = 0.6 oz pur e alcohol) PHQ-2 Answer Date Recorded PHQ-2 Total Score 1 02/07/2021 Comments No Sex and Gender Information Value Date Recorded Sex Assigned at Female 05/30/2024 10:22 AM EDT Legal Sex Female 7:01 PM EDT Gender Identity Not on file Sexual Orientation Choose not to disclose 2024 8:34 AM EST documented as of this encounter Plan of Treatment Upcoming Encounters Date Type Department Care Team (Late st Contact Info) Description 07/21/2025 11:00 AM EST Evaluation [facility] [address] [place] [address] Kusum Cagle, PT [address] [place] [address] 07/28/2025 8:00 AM EST Treatment [facility] [address] [place] [address] Kusum Cagle, PT [address] [place] [address] 08/04/2025 2:00 PM EST Treatment [facility] [address] [place] [address] Kusum Cagle, PT [address] [place] [address] 08/11/2025 12:30 PM EST Treatment [facility] [address] [place] [address] Kusum Cagle, PT [address] [address] 08/18/2025 12:30 PM EST Treatment [facility] [address] [place] [address] Kusum Cagle, PT [address] [place] [address] 08/25/2025 1:00 PM EST Office Visit [facility] [address] [place] [address] Nirali Vo H, DO [address] [place] [address] 10/11/2025 8:30 AM EST Office Visit [facility] [address] [place] [address] Nirali Vo DO [address] [place] [address] documented as of this encounter Visit Diagnoses Not on filedocumented in this encounter Care Teams Ferryboat Deckhand Relationship Specialty Start Date End Date Vida Ponce DO [address] [place] [address] PCP - General Family Medicine 02/07/21 07/21/24 Nirali Vo DO [address] [place] [address] PCP - General Family Medicine 07/22/24 Castillo Fuller MD [address] [place] [address] Physician Obstetrics and Gynecology 02/07/21 Иван Carmen MD [address] [place] [address] Referring Provider Box Loader 09/25/22 Zamzam Escobar LCSW [address] [place] [address] Copywriting Intern Clinical Social Work 10/13/22 06/20/25 documented as of this encounter
--- OUTSIDE RECORDS SUMMARY | 2025-07-14 13:11 | XMS_ITS | Clinical Summary ---
Author Organization [facility] Address [address] [place] [address] Care Team Providers Care User Support Specialist Name Role Phone Unavailable Primary Care Provider Unavailabl e Social History Tobacco Use Types Packs/Day Years Used Date Smoking Tobacco: Never Assessed Sex and Gender Information Value Date Recorded Sex Assigned at Female 09/16/2020 1:52 PM EST Gender Identity Not on file Sexual Orientation Not on file Plan of Treatment Not on file
--- OUTSIDE RECORDS SUMMARY | 2025-07-14 13:11 | XMS_ITS | Encounter Summary ---
Author Organization [facility] Address [address] [place] [address] Care Team Providers Care Cane Cutter Name Role Phone Rehana Arriaga APRN Primary Care Provider [phone] Rehana Arriaga APRN Unavailable [phone] Pcp, No Primary Care Provider Unavailabl e Vida Ponce DO Primary Care Provider [phone] Castillo Fuller MD Unavailable [phone] Mychart, Generic Provider Unavailable [phone] Zamzam Escobar [facility] Unavailable [phone] Nirali Vo DO Primary Care Provider + [phone] Encounter Details Date Type Department Care Team (Late st Contact Info) Description 04/14/2016 Scanned Document [address] [id number] Provider, Generic Social History Tobacco Use Types [...] Info) Description 07/21/2025 11:00 AM EST Evaluation [facility] [address] [place] [address] Kusum Cagle, PT [address] [place] [address] 07/28/2025 8:00 AM EST Treatment [facility] [address] [place] [address] Kusum Cagle, PT [address] [place] [address] 08/04/2025 2:00 PM EST Treatment [facility] [address] [place] [address] Kusum Cagle, PT [address] [place] [address] 08/11/2025 12:30 PM EST Treatment [facility] [address] [place] [address] Kusum Cagle, PT [address] [place] [address] 08/18/2025 12:30 PM EST Treatment [facility] [address] [place] [address] Kusum Cagle, PT [address] [place] [address] 08/25/2025 1:00 PM EST Office Visit [facility] [address] [place] [address] Nirali Vo, DO [address] [place] [address] 10/11/2025 8:30 AM EST Office Visit [facility] [address] [place] [address] Nirali Vo, DO [address] [place] [address] documented as of this encounter Visit Diagnoses Not on filedocumented in this encounter Care Teams Cane Cutter Relationship Specialty Start Date End Date Rehana Arriaga APRN [address] [place] [address] PCP - General Internal Medicine 04/19/15 08/17/17 Pcp, No PCP - General General Medicine 08/18/17 02/06/21 Vida Ponce DO [address] [place] [address] PCP - General Family Medicine 02/07/21 07/21/24 Nirali Vo DO [address] [place] [address] PCP - General Family Medicine 07/22/24 Rehana Arriaga APRN [address] [place] [address] Internal Medicine 04/19/15 02/06/21 Castillo Fuller MD [address] [place] [address] Physician Obstetrics and Gynecology 02/07/21 Иван Carmen MD [address] [place] [address] Referring Provider Grain Mill Products Inspector 09/25/22 Zamzam Escobar COSTUME RENTAL CLERK [address] [place] [address] Scourer Clinical Social Work 10/13/22 06/20/25 documented as of this encounter
--- OUTSIDE RECORDS SUMMARY | 2025-07-14 13:11 | XMS_ITS | Encounter Summary ---
Author Organization [facility] Address [address] [place] [address] Care Team Providers Care Facilities Director Name Role Phone Castillo Fuller MD Unavailable [phone] Иван Carmen MD Unavailable [phone] Zamzam Escobar [facility] Unavailable [phone] Nirali Vo DO Primary Care Provider [phone] Encounter Details Date Type Department Care Team (Late st Contact Info) Description 08/19/2024 Scanned Document [facility] PRIMARY CARE SCAN Primary Care, Scan Social [...] place to sleep or slept in a fpc (including now)? No 10/13/2022 Comments No Sex [...] Description 07/21/2025 11:00 AM EST Evaluation [facility] [address] [place] [address] Kusum Cagle, PT [address] [place] [address] 07/28/2025 8:00 AM EST Treatment [facility] [address] [place] [address] Kusum Cagle, PT [address] [place] [address] 08/04/2025 2:00 PM EST Treatment [facility] [address] [place] [address] Kusum Cagle, PT [address] [place] [address] 08/11/2025 12:30 PM EST Treatment [facility] [address] [place] [address] Kusum Cagle, PT [address] [place] [address] 08/18/2025 12:30 PM EST Treatment [facility] [address] [place] [address] Kusum Cagle, PT [address] [place] [address] 08/25/2025 1:00 PM EST Office Visit [address] [place] [address] Nirali Vo, DO [address] [place] [address], [place] [address] 10/11/2025 8:30 AM EST Office Visit [address] [place] [address] Nirali Vo, DO [address] [place] [address] documented as of this encounter Visit Diagnoses Not on filedocumented in this encounter Care Teams Facilities Director Relationship Specialty Start Date End Date Nirali Vo DO [address] [place] [address] PCP - General Family Medicine 07/22/24 Castillo Fuller MD Physician Obstetrics and Gynecology 02/07/21 Иван Carmen MD [address] [place] [address] Referring Provider Laundry Operator 09/25/22 Zamzam Escobar, ELECTRICAL AND INSTRUMENT ENGINEER [address] [place] [address] Fourth Officer Clinical Social Work 10/13/22 06/20/25 documented as of this encounter
--- OUTSIDE RECORDS SUMMARY | 2025-07-14 13:11 | XMS_ITS | Encounter Summary ---
Author Organization [facility] Address [address] [place] [address] Care Team Providers Care Certified Marine Mechanic Name Role Phone Rehana Arriaga APRN Primary Care Provider Rehana Arriaga APRN Unavailable [phone] Pcp, No Primary Care Provider Unavailabl e Vida Ponce DO Primary Care Provider [phone] Castillo Fuller MD Unavailable [phone] Mychart, Generic Provider Unavailable [phone] Zamzam Escobar AUTO BENCH MECHANIC Unavailable [phone] Nirali Vo DO Primary Care Provider + [phone] Encounter Details Date Type Department Care Team (Late st Contact Info) Description 03/13/2016 Scanned Document [facility] [address] [address] Provider, Generic Social History Tobacco Use Types [...] Info) Description 07/21/2025 11:00 AM EST Evaluation [facility] [address] [facility] [place] [address] Kusum Cagle, PT [address] [facility] [place] [address] 07/28/2025 8:00 AM EST Treatment [facility] [address] [facility] [place] [address] Kusum Cagle, PT [address] [facility] [place] [address] 08/04/2025 2:00 PM EST Treatment [facility] [address] [facility] [place] [address] Kusum Cagle, PT [address] [facility] [place] [address] 08/11/2025 12:30 PM EST Treatment [facility] [address] [facility] [place] [address] Kusum Cagle, PT [address] [facility] [place] [address] 08/18/2025 12:30 PM EST Treatment [facility] [address] [facility] [place] [address] Kusum Cagle, PT [address] [facility] [place] [address] 08/25/2025 1:00 PM EST Office Visit [facility] [address] [place] [address] Nirali Vo, DO [address] [place] [address] 10/11/2025 8:30 AM EST Office Visit [facility] [address] [place] [address] Nirali Vo, DO [address] [place] [address] documented as of this encounter Visit Diagnoses Not on filedocumented in this encounter Care Teams Certified Marine Mechanic Relationship Specialty Start Date End Date Rehana Arriaga APRN [address] [place] [address] PCP - General Internal Medicine 04/19/15 08/17/17 Pcp, No PCP - General General Medicine 08/18/17 02/06/21 Vida Ponce DO [address] [place] [address] PCP - General Family Medicine 02/07/21 07/21/24 Nirali Vo DO [address] [place] [address] PCP - General Family Medicine 07/22/24 Rehana Arriaga APRN [address] [place] [address] Internal Medicine 04/19/15 02/06/21 Castillo Fuller MD [address] [place] [address] Physician Obstetrics and Gynecology 02/07/21 Иван Carmen MD [address] [place] [address] Referring Provider Vb Net Developer 09/25/22 Zamzam Escobar LCSW [address] [place] [address] Extension Professor Clinical Social Work 10/13/22 06/20/25 documented as of this encounter
--- OUTSIDE RECORDS SUMMARY | 2025-07-14 13:11 | XMS_ITS | Encounter Summary ---
Author Organization [facility] Address [address] [place] [address] Care Team Providers Care Lighting Director Name Role Phone Castillo Fuller MD Unavailable [phone] Иван Carmen MD Unavailable [phone] Zamzam Escobar [facility] Unavailable [phone] Nirali Vo DO Primary Care Provider [phone] Encounter Details Date Type Department Care Team (Late st Contact Info) Description 09/15/2024 Scanned Document [facility] GASTRO SCAN Gastroenterology, Scan Social History Tobacco [...] place to sleep or slept in a jail (including now)? No 10/13/2022 Comments No Sex [...] Info) Description 07/21/2025 11:00 AM EST Evaluation [facility] [address] [place] [address] Kusum Cagle, PT [address] [place] [address] 07/28/2025 8:00 AM EST Treatment [facility] [address] [place] [address] Kusum Cagle, PT [address] [place] [address] 08/04/2025 2:00 PM EST Treatment [facility] [address] [place] [address] Kusum Cagle, PT [address] [place] [address] 08/11/2025 12:30 PM EST Treatment [facility] [address] [place] [address] Kusum Cagle, PT [address] [place] [address] 08/18/2025 12:30 PM EST Treatment [facility] [address] [place] [address] Kusum Cagle, PT [address] [place] [address] 08/25/2025 1:00 PM EST Office Visit [address] [place] [address] Nirali Vo, DO [address] [place] [address] 10/11/2025 8:30 AM EST Office Visit [address] [place] [address] Nirali Vo, DO [address] [place] [address] documented as of this encounter Visit Diagnoses Not on filedocumented in this encounter Care Teams Lighting Director Relationship Specialty Start Date End Date El-Nirali Amaya DO [address] [place] [address] PCP - General Family Medicine 07/22/24 Castillo Fuller MD Physician Obstetrics and Gynecology 02/07/21 Иван Carmen MD [address] [place], [place] [address] Referring Provider Automotive Parts Salesperson 09/25/22 Zamzam Escobar, WIRE COILER MACHINE OPERATOR [address] [place] [address] Paper Cone Machine Tender Clinical Social Work 10/13/22 06/20/25 documented as of this encounter
--- OUTSIDE RECORDS SUMMARY | 2025-07-14 13:11 | XMS_ITS | Encounter Summary ---
Author Organization [facility] Address [address] [place] [address] Care Team Providers Care Watch Mechanic Name Role Phone Castillo Fuller MD Unavailable [phone] Иван Carmen MD Unavailable [phone] Zamzam Escobar SOLAR SALES ENERGY ADVISOR Unavailable Nirali Vo DO Primary Care Provider [phone] Encounter Details Date Type Department Care Team (Late st Contact Info) Description 03/09/2025 Scanned Document [facility] [address] [place] [address] Orthopedic Surgery, Scan Social History Tobacco Use Types Packs/Day [...] place to sleep or slept in a retirement (including now)? No 10/13/2022 Physical Activity Answer [...] Info) Description 07/21/2025 11:00 AM EST Evaluation [facility] [address] [place] [address] Kusum Cagle, PT [address] [place] [address] 07/28/2025 8:00 AM EST Treatment [facility] [address] [place] [address] Kusum Cagle, PT [address] [place] [address] 08/04/2025 2:00 PM EST Treatment [facility] [address] [place] [address] Kusum Cagle, PT [address] [place] [address] 08/11/2025 12:30 PM EST Treatment [facility] [address] [place] [address] Kusum Cagle, PT [address] [place] [address] 08/18/2025 12:30 PM EST Treatment [facility] [address] [place] [address] Kusum Cagle, PT [address] [place] [address] 08/25/2025 1:00 PM EST Office Visit [facility] [address] [place] [address] Nirali Vo DO [address] [place] [address] 10/11/2025 8:30 AM EST Office Visit [facility] [address] [place] [address] Nirali Vo DO [address] [place] [address] documented as of this encounter Visit Diagnoses Not on filedocumented in this encounter Care Teams Watch Mechanic Relationship Specialty Start Date End Date Nirali Vo DO [address] [place] [address] PCP - General Family Medicine 07/22/24 Castillo Fuller MD Physician Obstetrics and Gynecology 02/07/21 Иван Carmen MD [address] [place] [address] Referring Provider Mental Health Nurse 09/25/22 Zamzam Escobar, SOLAR SALES ENERGY ADVISOR [address] [place] [address] Tub Rider Clinical Social Work 10/13/22 06/20/25 documented as of this encounter
--- OUTSIDE RECORDS SUMMARY | 2025-07-14 13:11 | XMS_ITS ---
Author Name [facility] Organization Unknown History of Medication Use Medication Directions Dispensed Refills Start Date End Date Stat us phentermine (ADIPEX-P) 37.5 MG tablet Take 1 tablet (37.5 mg total) by mouth every morning before breakfast. 05/26/2025 active meloxicam (MOBIC) 15 MG tablet Take 1 tablet (15 mg total) by mouth daily. 03/27/2025 active escitalopram (LEXAPRO) 10 MG tablet Take 1 tablet (10 mg total) by mouth daily. 10/05/2024 active buPROPion (WELLBUTRIN XL) 150 MG 24 hr tablet Take 1 tablet (150 mg total) by mouth every morning. Swallow whole; do not crush, chew, or divide. 11/25/2022 06/02/2023 active levonorgestrel (MIRENA) 20 mcg/24hr IUD 1 Intra Uterine Device by Intrauterine route once. active No known medications No known medications active Allergies Allergen Reaction Severity Comment Documented Date Source Statu s [place] SHORTNESS OF BREATH 04/19/2015 [facility] active Problems Problem Status Onset Date Problem Type Date of Resoluti on Source Menopausal symptom active EncounterDiagnosisAct [facility] BMI 34.0-34.9,adult active 2019-02-23 ProblemAct [facility] Immunizations Vaccine Date Source Lot Number Status Tdap 02/07/2021 [facility] [id number] completed Encounters Encounter Type Encounter Reason Primary Diagnosis Location Date Ambulatory [facility] 06/08/2025 Ambulatory Gynecologic Exam [facility]necologic Exam [facility] 06/08/2025 Ambulatory Body mass index (BMI ) 34.0-34.9, adult Body mass index (BMI) 34.0-34.9, adult [employer] 05/26/2025 Ambulatory Follow-up Follow-up [employer] 03/27/2025 Ambulatory Knee Pain Knee Pain [employer] 02/21/2025 Ambulatory Toe Pain Toe Pain [facility] 10/28/2024 Ambulatory Encounter for genera l adult medical examination without abnormal findings Encounter for general adult medical examination without abnormal findings [facility] 10/05/2024 Ambulatory Generalized anxiety disorder Generalized anxiety disorder [facility] 08/19/2024 Ambulatory Body mass index (BMI ) 33.0-33.9, adult Body mass index (BMI) 33.0-33.9, adult [facility] 07/22/2024 Ambulatory Gynecologic Exam Gynecologic Exam [facility] 05/30/2024 Ambulatory Encounter for genera l adult medical examination without abnormal findings Encounter for general adult medical examination without abnormal findings [facility] 10/01/2023 Ambulatory Encounter for gynecological examination (general) (routine) without abnormal findings Encounter for gynecological examination (general) (routine) without abnormal findings [facility] 05/08/2023 Ambulatory Adjustment disor asa with mixed anxiety and depressed mood [facility] [employer] 03/03/2023 Ambulatory [facility] 12/09/2022 Ambulatory Sprain of unspecified ligament of right ankle, initial encounter [facility] 12/09/2022 Ambulatory Diarrhea, unspecified [facility] 11/25/2022 Ambulatory Encounter for genera l adult medical examination without abnormal findings Encounter for general adult medical examination without abnormal findings [facility] 09/23/2022 Care Team Organization Name Specialty Phone Email Start Date End Da te [facility] 07/06/2025 [facility] 06/20/2025 [facility] MARCOS Primary Care 02/21/2025 07/09/2025 [facility] CLEO RODRÍGUEZ Primary Care 07/22/2024 [facility] 07/17/2023 024 [facility] 06/06/2023 024 [facility] 02/13/2023 [facility] Royer Ponce Primary Care 09/23/2022 025 [facility] ROYER PONCE, Primary Care 02/07/20212020 [facility] GENEVIEVE HUMPHREY, Primary Care
--- OUTSIDE RECORDS SUMMARY | 2025-07-14 13:11 | XMS_ITS | Encounter Summary ---
Author Organization [facility] Address [address] [place] [address] Care Team Providers Care Blood Typer Name Role Phone Rehana Arriaga APRN Primary Care Provider [phone] Rehana Arriaga APRN Unavailable [phone] Pcp, No Primary Care Provider Unavailabl e Vida Ponce DO Primary Care Provider [phone] Castillo Fuller MD Unavailable [phone] Vida Ponce DO Primary Care Provider [phone] Иван Carmen Provider Unavailable [phone] Zamzam Escobar [employer] Unavailable [phone] Nirali oV DO Primary Care Provider + [phone] Encounter Details Date Type Department Care Team (Late st Contact Info) Description 04/16/2015 Scanned Document [address] [id number] Provider, Generic Social History Tobacco Use Types [...] Info) Description 07/21/2025 11:00 AM EST Evaluation [facility] [address] [place] [address] Kusum Cagle, PT [address] [place] [address] 07/28/2025 8:00 AM EST Treatment [facility] [address] [place] [address] Kusum Cagle, PT [address] [place] [address] 08/04/2025 2:00 PM EST Treatment [facility] [address] [place] [address] Kusum Cagle, PT [address] [place] [address] 08/11/2025 12:30 PM EST Treatment [facility] [address] [place] [address] Kusum Cagle, PT [address] [place] [address] 08/18/2025 12:30 PM EST Treatment [facility] [address] [place] [address] Kusum Cagle, PT [address] [place] [address] 08/25/2025 1:00 PM EST Office Visit [facility] [address] [place] [address] Nirali Vo, DO [address] [place] [address] 10/11/2025 8:30 AM EST Office Visit [facility] [address] [place] [address] Nirali Vo, DO [address] [place] [address] documented as of this encounter Visit Diagnoses Not on filedocumented in this encounter Care Teams Blood Typer Relationship Specialty Start Date End Date Rehana Arriaga APRN [address] [place] [address], [place] [address] PCP - General Internal Medicine 04/19/15 08/17/17 Pcp, No PCP - General General Medicine 08/18/17 02/06/21 Vida Ponce DO [address] [facility] [address] PCP - General Family Medicine 02/07/21 07/21/24 Vida Ponce DO [address] [place] [address] PCP - General 04/18/15 Nirali Vo DO [address] [place] [address] PCP - General Family Medicine 07/22/24 Rehana Arriaga APRN [address] [facility] [place] [place] [facility] [place] [address] Internal Medicine 04/19/15 02/06/21 Castillo Fuller MD [address] [place] [address] Physician Obstetrics and Gynecology 02/07/21 Иван Carmen MD [address] [place] [address] Referring Provider Loading Dock Hand 09/25/22 Zamzam Escobar, [employer] [address] [place] [address] Steel Heater Clinical Social Work 10/13/22 06/20/25 documented as of this encounter
--- OUTSIDE RECORDS SUMMARY | 2025-07-14 13:11 | XMS_ITS | Encounter Summary ---
Author Organization [facility] Address [address] [place] [address] Care Team Providers Care Radiographer Mammographer Name Role Phone Castillo Fuller MD Unavailable [phone] Иван Carmen MD Unavailable [phone] Nirali Vo DO Primary Care Provider [phone] Reason for Referral * Rehabilitation (Elective) - Pending Review Specialty Diagnoses / Procedures Referred By Pascale lewis Referred To Contact Rehabilitation Diagnoses Other tear of medial meniscus, current injury, left knee, initial encounter ProviderИван [facility]ERR[facility] Phone: tel: Referral ID Status Reason Start Date Expiration Date Visits Requested Visits Authorized [id number] Pending Review Support Services 07/15/2026 99 99 Question Answer Is this referral for an initial evaluation or additional visits? Initial evaulation Is this related to a Neurological Condition? No Encounter Details Date Type Department Care Team (Latest Contact Info) Description 07/14/2025 Transcribe Orders [address] [place] [address] Иван Baig Other tear of medial meniscus, current injury, left knee, initial encounter (Primary Dx) Social History Tobacco Use Types Packs/Day Years Used Date Smoking Tobacco: Never Smokeless Tobacco: Never Alcohol Use Standard Drinks/Week Comments Not Currently 0 (1 standard drink = 0.6 oz pur e alcohol) [facility] Utilities Answer Date Recorded In the past 12 months has th e electric, gas, oil, or water company threatened to shut off services in your home? No 03/27/2025 Social Connection and Isolation Panel Answer Date Recorded In a typical week, how many times do you talk on the phone with family, friends, or neighbors? More than three times a week 03/27/2025 Frequency of Social Gatherin gs with Friends and Family Not on file 03/27/2025 Attends Mosque Services Not on file 03/27 Active Member [...] any time in the past 12 m [facility], were you homeless or living in a [...] Master's degree (e.g., MA, MS, Angel, MEd, STEEL GRINDER, LAUREN) 03/27/2025 Comments No Sex and Gender [...] Description 07/21/2025 11:00 AM EST Evaluation [facility] [address] [place] [address] Kusum Cagle, PT [address] [place] [address] 07/28/2025 8:00 AM EST Treatment [facility] [address] [place] [address] Kusum Cagle, PT [address] [place] [address] 08/04/2025 2:00 PM EST Treatment [facility] [address] [place] [address] Kusum Cagle, PT [address] [place] [address] 08/11/2025 12:30 PM EST Treatment [facility] [address] [place] [address] Kusum Cagle, PT [address] [place] [address] 08/18/2025 12:30 PM EST Treatment [facility] [address] [place] [address] Kusum Cagle, PT [address] [place] [address] 08/25/2025 1:00 PM EST Office Visit [facility] [address] [place] [address], [place] [address] Nirali Vo H, DO [address] [place] [address], [place] [address] 10/11/2025 8:30 AM EST Office Visit [facility] [address] [place] [address] Nirali Vo H, DO [address] [place] [address] Scheduled Referrals Name Type Priority Associated Diagnoses Orde r Schedule Amb Referral to Therapy Services (PT or OT) Outpatient Referral Routine Other tear of medial meniscus, current injury, left knee, initial encounter Ordered: 07/14/2025 documented as of this encounter Visit Diagnoses Diagnosis Other tear of medial meniscus, current injury, left knee, initial encounter- Primary documented in this encounter Care Teams Radiographer Mammographer Relationship Specialty Start Date End Date Nirali Vo DO [address] [place] [address] PCP - General Family Medicine 07/22/24 Castillo Fuller MD Physician Obstetrics and Gynecology 02/07/21 Иван Carmen MD [address] [place] [address] Referring Provider Chain Hoist Operator 09/25/22 documented as of this encounter
--- OUTSIDE RECORDS SUMMARY | 2025-07-14 13:11 | XMS_ITS | Clinical Summary ---
Author Organization [facility] Address [address] [place] [address] Care Team Providers Care Tent Assembler Name Role Phone Tressa Dennis Primary Care Provider + Active Problems Problem Noted Date Diagnosed Date Obesity 02/23/2019 Overview (10/18/2023): Impression - 23Feb2019: Diet exercise and portion control stressed. Avoid processed foods. Skin tag of anus 02/15/2018 Family History Medical History Relation Name Comments Inflammatory Bowel Disease Brother C rohn's disease : Brother CAD/PVD - Early Father coronary art desiree disease : Father;49 year Cancer - Prostate Father prostate c ancer : Father Diabetes Father type 2 diabetes mellitus : Father Glaucoma Father glaucoma : Fath er Hypertension Father HTN (hypertensi on), benign : Father Cancer - Blood Maternal grandmother leuke madeline : Maternal Grandmother Cancer - Melanoma Maternal grandmother me lanoma : Maternal Grandmother Inflammatory Bowel Disease Mother u lcerative colitis : Mother Relation Name Status Comments Brother Father Maternal grandmother Mother Social History Tobacco Use Types Packs/Day Years Used Date Smoking Tobacco: Never Assessed Comments:Smoking Status:No c urrent tobacco use Comments Unknown Sex and Gender Information Value Date Recorded Sex Assigned at Not on file Legal Sex Female 8:28 PM EDT Gender Identity Not on file Sexual Orientation Not on file Last Filed Vital Signs Vital Sign Reading Time Taken Comments Blood Pressure 110/72 02/23/2019 9:24 AM EDT Pulse 69 02/23/2019 9:24 AM EDT Temperature 37.5 C (99.5 F) 02/23/2019 9:24 AM EDT Respiratory Rate 18 02/23/2019 9:24 AM EDT Oxygen Saturation 98% 02/23/2019 9:24 AM EDT Inhaled Oxygen Concentration - - Weight 78.9 kg (174 lb 0.2 oz) 02/23/2019 9:24 A M EDT Height 157.5 cm (5' 2 ) 02/23/2019 9:24 AM EDT Body Mass Index 31.83 02/23/2019 9:24 AM EDT Plan of Treatment Health Maintenance Due Date Last Done Comments Hepatitis C Screening 1979 Pap Smear 1995 DTaP/Tdap/Td (1 - Tdap) 1997 Hep B (1 of 3 - 19+ 3-dose series) 1998 Mammogram/Breast Imaging 2019 Colon Cancer Screening 2024 COVID-19 Vaccine ( - 2024-2 6 season) 2025 Influenza (#1) 2025 Zoster (Shingrix) (1 of 2) 2029 LDL Cholesterol Discontinued 08/17/2014 Physical Discontinued 02/23/2019, 02/15/2018 HPV Vaccine (No Doses Required) Completed Hep A Aged Out No longer eligi ble based on patient's age to complete this topic Hib Aged Out No longer eligi ble based on patient's age to complete this topic Meningococcal ACWY Aged Out No longer eligible based on patient's age to complete this topic Pneumococcal Aged Out No longer eligi ble based on patient's age to complete this topic Procedures Procedure Name Priority Date/Time Associated Diagnosis Comments LIPID PANEL, PLASMA Routine 08/17/2014 9 :00 AM EST from Last 3 Months or Most Recently Relevant to Health Maintenance Results * (ABNORMAL) LIPID PANEL, PLASMA (08/17/2014 9:00 AM EST) Cholesterol 180 0 - 199 mg/dL [facility] CONVERSION[facility] Triglyceride 72 0 - 150 mg/dL [facility] CONVERSION[facility] VLDL Cholesterol 14 5 - 40 mg/dL [facility] CONVERSION[facility] HDL Cholesterol 54 50 - 80 mg/dL [facility] CONVERSION[facility] LDL Cholesterol 112(H) 0 - 100 mg/dL [facility] CONVERSION[facility] Cholesterol Non-HDL 126 0 - 130 mg/dl [facility] CONVERSIONS CHOL/HDL Ratio 3.3 [facility] CONVERSIONS Comment: Lipid Profile Comment: Risk Category LDL Goal Non-HDL Goal CHD and CHD Risk Equivalent <100 <130 Multiple (2+) Risk Factors <130 <160 0-1 Risk Factors <160 <190 08/17/2014 9:00 AM EST Narrative PHCT CONVERSIONS - 08/17/2014 11:24 PM EST FASTING: YES Testing Performed at: [facility], [address] [place] [address], [place] [address], , Cuffing Machine Operator: Marla Pearson MD CLPOL#[id number] Nery Carolina MD LABORATORY Final Result PHCT CONVERSIONS from Last 3 Months or Most Recently Relevant to Health Maintenance Care Teams Tent Assembler Relationship Specialty Start Date End Date Tressa Dennis [address] [place] [address] PCP - General 04/20/23
--- OUTSIDE RECORDS SUMMARY | 2025-07-14 13:11 | XMS_ITS | Encounter Summary ---
Author Organization [facility] Address [address] [place] [address] Care Team Providers Care Yard Foreman Name Role Phone Rehana Arriaga APRN Unavailable [phone] Pcp, No Primary Care Provider Unavailabl e Vida Ponce DO Primary Care Provider Castillo Fuller MD Unavailable [phone] [employer], Generic Provider Unavailable [phone] Zamzam Escobar TECHNICAL SUPERVISOR Unavailable [phone] Nirali Vo DO Primary Care Provider + [phone] Encounter Details Date Type Department Care Team (Late st Contact Info) Description 08/20/2017 Prep for Surgery [facility] IP [address] [place] [phone] Castillo Fuller MD [address] [place] [address] Social History Tobacco Use Types Packs/Day Years [...] Info) Description 07/21/2025 11:00 AM EST Evaluation [facility] [address] [place] [address] Kusum Cagle, PT [address] [facility] [place] [address] 07/28/2025 8:00 AM EST Treatment [facility] [address] [place] [address] Kusum Cagle, PT [address] [place] [address] 08/04/2025 2:00 PM EST Treatment [facility] [address] [place] [address] Kusum Cagle, PT [address] [facility] [address] 08/11/2025 12:30 PM EST Treatment [facility] [address] [facility] [place] [address] Kusum Cagle, PT [address] [facility] [place] [address] 08/18/2025 12:30 PM EST Treatment [facility] [address] [place] [address] Kusum Cagle, PT [address] [place] [address] 08/25/2025 1:00 PM EST Office Visit [facility] [address] [place] [address] Nirali Vo, DO [address] [place] [address] 10/11/2025 8:30 AM EST Office Visit [facility] [address] [place] [address] Nirali Vo, DO [address] [place] [address] documented as of this encounter Visit Diagnoses Not on filedocumented in this encounter Care Teams Yard Foreman Relationship Specialty Start Date End Date Pcp, No PCP - General General Medicine 08/18/17 02/06/21 Vida Ponce DO [address] [place] [address] PCP - General Family Medicine 02/07/21 07/21/24 Nirali Vo DO [address] [place] [address] PCP - General Family Medicine 07/22/24 Rehana Arriaga APRN [address] [facility] [place] [address] Internal Medicine 04/19/15 02/06/21 Castillo Fuller MD [address] [place] [address] Physician Obstetrics and Gynecology 02/07/21 Иван Carmen MD [address] [place] [address] Referring Provider Mounter Smoking Pipe 09/25/22 Zamzam Escobar LCSW [address] [place] [address] Bridge Welder Clinical Social Work 10/13/22 06/20/25 documented as of this encounter
--- OUTSIDE RECORDS SUMMARY | 2025-07-14 13:11 | XMS_ITS | Clinical Summary ---
Author Organization [facility] Address [address] [place] [address] Care Team Providers Care Clinical Operations Manager Name Role Phone Beverly Lindsay MD Unavailable [phone] Иван Carmen Provider Unavailable [phone] Nirali Vo DO Primary Care Provider [phone] Allergies Active Allergy Reactions Criticality Noted Date Comments Penicillins Anaphylaxis,Hives,Shortness Of Breath High 04/19/2015 Medications * This document contains information received from the source organization and may not represent a complete record from that organization. levonorgestrel (MIRENA) 20 mcg/24hr IUD 1 Intra Uterine Device by Intrauterine route once. Active escitalopram (LEXAPRO) 10 MG tabletIndicati ons:Generalize d anxiety disorder Take 1 tablet (10 mg total) by mouth daily. 90 tablet 3 10/05/19 25 026 Active phentermine (ADIPEX-P) 37.5 MG tabletIndicati ons:BMI 34.0-34.9,adul t Take 1 tablet (37.5 mg total) by mouth every morning before breakfast. 90 tablet 05/26/20 25 025 Active meloxicam (MOBIC) 15 MG tabletIndicati ons:Chronic pain of left knee TAKE 1 TABLET (15 MG TOTAL) BY MOUTH DAILY. 90 tablet 06/27/20 25 026 Active meloxicam (MOBIC) 15 MG tabletIndicati ons:Chronic pain of left knee Take 1 tablet (15 mg total) by mouth daily. 90 tablet 03/27/20 25 025 Discontinued Active Problems Problem Noted Date Diagnosed Date BMI 34.0-34.9,adult 02/23/2019 Overview (07/20/2024): Impression - 23Feb2019: Diet exercise and portion control stressed. Avoid processed foods. Assessment & Plan (05/26/2025 12:38 PM EDT): Tolerating medication well, no side effects Has lost 18 lbs since starting with lifestyle changes and medication Plans to try to incorporate more physical activity Orders: phentermine (ADIPEX-P) 37.5 MG tablet; Take 1 tablet (37.5 mg total) by mouth every morning before breakfast. Assessment & Plan (03/27/2025 2:58 PM EDT): Continue with phentermine for 2 more months, will re evaluate Down ~10lbs since last visit, continue w lifestyle modifications Orders: phentermine (ADIPEX-P) 37.5 MG tablet; Take 1 tablet (37.5 mg total) by mouth every morning before breakfast. Start with half tablet for 1 week, if tolerating can increase to full tablet Assessment & Plan (02/21/2025 11:10 AM EDT): Discussed risks vs benefits and side effects of phentermine Will give this a try Has been making lifestyle modifications Plans to meet with dietitian Orders: phentermine (ADIPEX-P) 37.5 MG tablet; Take 1 tablet (37.5 mg total) by mouth every morning before breakfast. Start with half tablet for 1 week, if tolerating can increase to full tablet Resolved Problems Problem Noted Date Diagnosed Date Resolved Date Abnormal mammogram 07/20/2024 Menorrhagia with regular cycle 07/20/2024 07/22/2024 Skin tag of anus 02/15/2018 07/20/2024 Acute maxillary sinusitis 11/05/2015 Otitis media 04/19/2015 11/05/2015 Encounters Date Type Department Care Team Description 07/14/2025 Transcribe Orders [address] [place] [address] Provider, Generic Other tear of medial meniscus, current injury, left knee, initial encounter (Primary Dx) 06/26/2025 Refill [facility] [address] [place] [address], [place] [address] Nirali Vo, Chronic pain of left knee 06/08/2025 1:30 PM EDT Office Visit [facility] Department Of Medical Imaging Technician [address] [place] [address] Beverly Lindsay MD Encounter for gynecological examination without abnormal finding (Primary Dx); Menopausal symptom 06/06/2025 Travel 05/26/2025 9:00 AM EDT Office Visit [address] [place] [address] Nirali Vo DO BMI 34.0-34.9,adult (Primary Dx); Perimenopause 05/26/2025 Travel from Last 3 Months Immunizations Immunization Administration Dates Next Due Tdap 02/07/2021 Family History Medical History Relation Name Comments Crohn's disease Brother Diabetes Father Heart attack Father Hyperlipidemia Father Hypertension Father COPD Maternal Grandmother Melanoma Maternal Grandmother Heart attack Mother Ulcerative colitis Mother Heart attack Paternal Grandfather Dementia Paternal Grandmother Heart attack Paternal Grandmother Relation Name Status Comments Brother Father Maternal Grandmother Mother Paternal Grandfather Paternal Grandmother Social History Tobacco Use Types Packs/Day Years Used Date Smoking Tobacco: Never Smokeless Tobacco: Never Tobacco Cessation:Counseling Given: Not Answered Alcohol Use Standard Drinks/Week Comments Not Currently 0 (1 standard drink = 0.6 oz pur e alcohol) [facility] Utilities Answer Date Recorded In the past 12 months has [employer], gas, oil, or water [employer] threatened to shut off services in your home? No 03/27/2025 Social Connection and Isolation Panel Answer Date Recorded In a typical week, how many times do you talk on the phone with family, friends, or neighbors? More than three times a week 03/27/2025 Frequency of Social Gatherin gs with Friends and Family Not on file 03/27/2025 Attends [employer] Not on file 03/27 Active Member [...] place to sleep or slept in a penitentiary (including now)? No 10/13/2022 Housing Stability Vital Sign Answer Nico e Recorded In the last 12 months, was t here a time when you were not able to pay the mortgage or rent on time? No 03/27/2025 In the past 12 months, how m any times have you moved where you were living? 0 03/27/2025 At any time in the past 12 m [facility], were you homeless or living in a penitentiary (including now)? No 03/27/2025 Physical Activity Answer [...] Master's degree (e.g., MA, MS, Angel, MEd, DESKTOP ANALYST, LAUREN) 03/27/2025 Comments No Sex and Gender Information Value Date Recorded Sex Assigned at Female 05/30/2024 10:22 AM EDT Legal Sex Female 7:01 PM EDT Gender Identity Not on file Sexual Orientation Choose not to disclose 2024 8:34 AM EST Last Filed Vital Signs Vital Sign Reading Time Taken Comments Blood Pressure 126/73 06/08/2025 1:26 PM EDT Pulse 80 05/26/2025 8:49 AM EDT Temperature 36.3 C (97.4 F) 05/26/2025 8:49 AM EDT Respiratory Rate 18 05/26/2025 8:49 AM EDT Oxygen Saturation 98% 05/26/2025 8:49 AM EDT Inhaled Oxygen Concentration - - Weight 77.6 kg (171 lb) 06/08/2025 1:26 PM EDT Height 157.5 cm (5' 2 ) 06/08/2025 1:26 PM EDT Body Mass Index 31.28 06/08/2025 1:26 PM EDT Plan of Treatment Upcoming Encounters Date Type Department Care Team (Late st Contact Info) Description 07/21/2025 11:00 AM EST Evaluation [facility] [address] [place] [address] Kusum Cagle, PT [address] [place] [address] 07/28/2025 8:00 AM EST Treatment [facility] [address] [place] [address] Kusum Cagle, PT [address] [place] [address] 08/04/2025 2:00 PM EST Treatment [facility] [address] [place] [address] Kusum Cagle, PT [address] [place] [address] 08/11/2025 12:30 PM EST Treatment [facility] [address] [place] [address] Kusum Cagle, PT [address] [place] [address] 08/18/2025 12:30 PM EST Treatment [facility] [address] [place] [address] Kusum Cagle, PT [address] [place] [address] 08/25/2025 1:00 PM EST Office Visit [facility] [address] [place] [address] Nirali Vo, DO [address] [place] [address] 10/11/2025 8:30 AM EST Office Visit [facility] [address] [facility] [address] Nirali Vo DO [address] [place] [address] Health Maintenance Due Date Last Done Comments Hepatitis C Virus Screening 1979 Hepatitis B Vaccines (1 of 3 - 19+ 3-dose series) 1998 Mammogram 04/25/2025 04/25/2024, 05/2023, 04/21/2022, Additional history exists Physical 06/08/2027 06/08/2025, 09/15, 05/30/2024, Additional history exists Pap Smear (Ages 21-65) 06/08/2028 , 01/13/2022 (Previously Completed), 02/07/2019 (Previously Completed) DTaP/Tdap/Td Vaccines (2 - Td or Tdap) 02/07/2031 02/07/2021 Colonoscopy 09/02/2034 COVID-19 Vaccine Discontinued 09/04/2021, , 12/20/2020 HIV Screening Completed 09/09/2022 (Prev iously Completed) Influenza Vaccine Discontinued Pneumococcal Vaccine: Pediatric (0-5 Years) and At-Risk Patients (6 to 49 Years) Aged Out No longer eligible based on patient's age to complete this topic Procedures Procedure Name Priority Date/Time Associated Diagnosis Comments THINPREP PAP(OPTIONS TRADER) HPV SCR RFX HPV 16,18/45 Routine 06/08/2025 2:03 PM EDT Encounter for gynecological examination without abnormal finding ESTRADIOL Routine 06/08/2025 1:56 PM EDT Menopausal symptom FOLLICLE STIMULATING HORMONE (FSH) Routine 06/08/2025 1:56 PM EDT Menopausal symptom TSH REFLEX TO FREE T4 Routine 06/08/2025 1:56 PM EDT Menopausal symptom MG SCREENING DIGITAL BREAST VICTOR M- BILATERAL Routine 04/25/2024 4:27 PM EDT from Last 3 Months or Most Recently Relevant to Health Maintenance Results * ThinPrep Pap(Production Wood Craftsman) HPV Scr Rfx HPV 16,18/45 (06/08/2025 2:03 PM EDT) 06/08/2025 2:03 PM EDT Narrative [facility] - 06/20/2025 10:43 AM EDT To view the final report click the scan hyperlink below. Beverly Lindsay MD LAB AMB PATH/CYTO ORDERABLES Final Result Performing Organization Address City/[facility]/ZIP Co de Phone Number [facility] [address] [place] [address], * TSH REFLEX FREE T4 (06/08/2025 1:56 PM EDT) Tsh Reflex To Free T4 1.93 0.40 - 4.50 uIU/ml [facility] Blood Blood specimen / Unknown 06/08/2025 1:56 PM EDT 06/08/2025 6:14 PM EDT Beverly Lindsay MD LAB BLOOD ORDERABLES Final Re sult [facility] [address] [place] [address], * ESTRADIOL (06/08/2025 1:56 PM EDT) Estradiol 126.0 pg/mL [facility] Comment: Adult Female: Follicular Phase: 12.5 - 166.0 pg/mL Ovulation phase: 85.8 - 498.0 pg/mL Luteal phase: 43.8 - 211.0 pg/mL Postmenopausal: < 54.7 pg/mL : 1st Trimester: 215.0 - >4300.0 pg/mL Girls (1-10 years): 6.0 - 27.0 pg/mL Male: < 40 pg/mL Blood Blood specimen / Unknown 06/08/2025 1:56 PM EDT 06/08/2025 6:14 PM EDT Beverly Lindsay MD LAB BLOOD ORDERABLES Final Re sult Performing Organization Address [facility] [[email or web address]] Co de Phone Number [facility] [address] [place] [phone], [place] * FOLLICLE STIMULATING HORMONE (FSH) (06/08/2025 1:56 PM EDT) FSH 7.5 mIU/mL [facility] Comment: Adult Female: Follicular phase: 3.5 - 12.5 mIU/mL Ovulatory phase: 4.7 - 21.5 mIU/mL Luteal phase: 1.7 - 7.7 mIU/mL Postmenopausal: 25.8 - 134.8 mIU/mL Adult Male: 1.5 - 12.4 mIU/mL Blood Blood specimen / Unknown 06/08/2025 1:56 PM EDT 06/08/2025 6:14 PM EDT Beverly Lindsay MD LAB BLOOD ORDERABLES Final Re sult Performing Organization Address [facility] [[email or web address]] Co de Phone Number [facility] [address] [place] [address], * MG SCREENING DIGITAL BREAST VICTOR M- BILATERAL (04/25/2024 4:27 PM EDT) Anatomical Region Laterality Modality Other 04/25/2024 3:15 PM EDT 04/25/2024 3:15 PM EDT Impressions 05/17/2024 4:06 PM EDT There is no mammographic evidence of malignancy. RECOMMENDATIONS: Routine annual screening mammography. BI-RADS 2: Benign. Electronically signed by: Linh Ingram MD 05/17/2024 04:06 PM EDT Thank you for referring your patient to us, Linh Ingram MD [phone] (Electronically Signed - 05/17/2024 16:06) Copy: BEVERLY LINDSAY MD [facility]- OB-COMMERCIAL ACCOUNT OFFICER [address] [phone] Narrative 05/17/2024 4:06 PM EDT EXAMINATION: MM SCREENING DIGITAL BREAST TOMOSYNTHESIS, BILATERAL INDICATION: Routine screening. COMPARISON: Prior mammograms dating back to 02/27/2020. TECHNIQUE: Routine 3D tomosynthesis images were obtained of both breasts with reconstructed 2D views. Computer Aided Detection was utilized. FINDINGS: Breast Density: There are scattered areas of fibroglandular density (breast composition category: b). There are waxing and waning oval masses in both breasts consistent with patients history of cysts. No suspicious masses, calcifications, or other findings are seen in either breast. Procedure Note Linh Ingram MD - 06/12/2024 EXAMINATION: MM SCREENING DIGITAL BREAST TOMOSYNTHESIS, BILATERAL INDICATION: Routine screening. COMPARISON: Prior mammograms dating back to 02/27/2020. TECHNIQUE: Routine 3D tomosynthesis images were obtained of both breastswith reconstructed 2D views. Computer Aided Detection was utilized. FINDINGS: Breast Density: There are scattered areas of fibroglandular density(breast composition category: b). There are waxing and waning oval masses in both breasts consistent withpatients history of cysts. No suspicious masses, calcifications, or other findings are seen in eitherbreast. IMPRESSION: There is no mammographic evidence of malignancy. RECOMMENDATIONS: Routine annual screening mammography. BI-RADS 2: Benign. Electronically signed by: Linh Ingram MD 05/17/2024 04:06 PM EDT RPWorkstation: [id number] Thank you for referring your patient to us, Linh Ingram MD [phone] (Electronically Signed - 05/17/2024 16:06) Copy: BEVERLY LINDSAY MD [facility]- OB-COMMERCIAL ACCOUNT OFFICER [place] [id number] [facility] [place] [address] us Generic Provider IMG LEGACY PROCEDURES Final Res ult from Last 3 Months or Most Recently Relevant to Health Maintenance Insurance [employer] CROSS COMPREHENSIVE [employer]OSS [employer]IVE Advance Directives * Full Code (Latest Code Status on File) Date Activated Date Inactivated Comments 08/21/2017 7:54 AM Care Teams Clinical Operations Manager Relationship Specialty [place] [address] [place] [address] PCP - General Family Medicine 07/22/24 Bevrely Lindsay MD Physician Obstetrics and Gynecology 02/07/21 Иван Carmen MD [address] [place] [address] Referring Provider Auto Bumper Straightener 09/25/22
--- OUTSIDE RECORDS SUMMARY | 2025-07-14 13:11 | XMS_ITS | Encounter Summary ---
Author Organization [facility] Address [address] [place] [address] Care Team Providers Care Log Chain Worker Name Role Phone Castillo Fuller MD Unavailable Иван Carmen MD Unavailable [phone] Zamzam Escobar [facility] Unavailable [phone] Nirali Vo DO Primary Care Provider [phone] Encounter Details Date Type Department Care Team (Late st Contact Info) Description 07/22/2024 Scanned Document [facility] PRIMARY CARE SCAN Primary Care, Scan [...] AM EST documented as of this encounter Functional Status * Question Answer Date of Assessment Author Feeling nervous, anxious, or on edge 2 07/22/2024 10:57 AM Anastasia Redd MA Not being able to stop or control worrying 2 07/22/2024 10:57 AM Anastasia Redd MA Worrying too much about different things 2 07/22/2024 10:57 AM Anastasia Redd MA Trouble relaxing 0 07/22/2024 10:57 AM Anastasia Redd MA Being so restless that it is hard to sit still 0 07/22/2024 10:57 AM Anastasia Redd MA Becoming easily annoyed or irritable 1 07/22/2024 10:57 AM Anastasia Redd MA Feeling afraid as if somethi ng awful might happen 2 07/22/2024 10:57 AM Anastasia Redd MA * Over the past 2 weeks, how often have you been bothered by any of the following problems? Question Answer Date of Assessment Author Patient Health Questionnaire -2 Score 1 07/22/2024 10:56 AM Anastasia Redd MA * Question Answer Date of Assessment Author Patient Health Questionnaire -9 Score 3 07/22/2024 10:56 AM Anastasia Redd MA * Over the last 2 weeks, how often have you been bothered by any of the following problems? Question Answer Date of Assessment Author RAMAN-7 Total Score 9 07/22/2024 10:57 AM Anastasia Redd MA * Question Answer Date of Assessment Author PHQ-2 Total Score 1 07/22/2024 10: 56 AM Anastasia Redd MA Little interest or pleasure in doing things Not at all 07/22/2024 10:56 AM Anastasia Redd MA Feeling down, depressed, or hopeless Several days 07/22/2024 10:56 AM Anastasia Redd MA Trouble falling or staying asleep, or sleeping too much Several days 07/22/2024 10:56 AM Anastasia Redd MA Feeling tired or having little energy Not at all 07/22/2024 10:56 AM Anastasia Redd MA Poor appetite or overeating Not at all 07/22/2024 10:56 AM Anastasia Redd MA Feeling bad about yourself - or that you are a failure or have let yourself or your family down Not at all 07/22/2024 10:56 AM Anastasia Redd MA Trouble concentrating on things, such as reading the newspaper or watching television Several days 07/22/2024 10:56 AM Anastasia Rded MA Moving or speaking so slowly that other people could have noticed? Or the opposite - being so fidgety or restless that you have been moving around a lot more than usual. Not at all 07/22/2024 10:56 AM Anastasia Redd MA Thoughts that you would be better off or hurting yourself in some way Not at all 07/22/2024 10:56 AM Anastasia Redd MA How difficult have these problems made it for you to do your work, take care of things at home, or get along with other people? Not difficult at all 07/22/2024 10:56 AM EST Yohan-Monique Nirali H, DO PHQ-9 Total Score 3 07/22/2024 10: 56 AM EST Anastasia Butts MA documented as of this encounter Plan of Treatment Upcoming Encounters Date Type Department Care Team (Late st Contact Info) Description 07/21/2025 11:00 AM EST Evaluation [facility] [address] [place] [address] Kusum Cagle, PT [address] [place] [address] 07/28/2025 8:00 AM EST Treatment [facility] [address] [place] [address] Kusum Cagle, PT [address] [place] [address] 08/04/2025 2:00 PM EST Treatment [facility] [address] [place] [address] Kusum Cagle, PT [address] [place] [address] 08/11/2025 12:30 PM EST Treatment [facility] [address] [place] [address] Kusum Cagle, PT [address] [place] [address] 08/18/2025 12:30 PM EST Treatment [facility] [address] [place] [address] Kusum Cagle, PT [address] [place] [address] 08/25/2025 1:00 PM EST Office Visit [facility] [address] [place] [address] Nirali Vo DO [address] [place] [address] 10/11/2025 8:30 AM EST Office Visit [facility] [address] [place] [address] Nirali Vo, DO [address] [place] [address] documented as of this encounter Visit Diagnoses Not on filedocumented in this encounter Care Teams Log Chain Worker Relationship Specialty Start Date End Date Nirali Vo DO [address] [place] [address] PCP - General Family Medicine 07/22/24 Castillo Fuller MD Physician Obstetrics and Gynecology 02/07/21 Иван Carmen MD [address] [place] [address] Referring Provider Plumbers And Top Helpers 09/25/22 Zamzam Escobar LCSW [address] [place] [address] Pipe Bender Clinical Social Work 10/13/22 06/20/25 documented as of this encounter
--- OUTSIDE RECORDS SUMMARY | 2025-07-14 13:11 | XMS_ITS | Encounter Summary ---
Author Organization [facility] Address [address] [place] [address] Care Team Providers Care Sales And Marketing Professional Name Role Phone Castillo Fuller MD Unavailable [phone] Иван Carmen MD Unavailable [phone] Zamzam Escobar [facility] Unavailable [phone] Nirali Vo DO Primary Care Provider [phone] Encounter Details Date Type Department Care Team (Late st Contact Info) Description 09/15/2024 Scanned Document [facility] GASTRO SCAN Gastroenterology, Scan Social History [...] place to sleep or slept in a senior living (including now)? No 10/13/2022 Comments No Sex [...] Info) Description 07/21/2025 11:00 AM EST Evaluation [facility] [address] [place] [address] Kusum Cagle, PT [address] [place] [address] 07/28/2025 8:00 AM EST Treatment [facility] [address] [place] [address] Kusum Cagle, PT [address] [place] [address] 08/04/2025 2:00 PM EST Treatment [facility] [address] [facility] [place] [address] Kusum Cagle, PT [address] [facility] [place] [address] 08/11/2025 12:30 PM EST Treatment [facility] [address] [facility] [place] [address] Kusum Cagle, PT [address] [facility] [place] [address] 08/18/2025 12:30 PM EST Treatment [facility] [address] [facility] [place] [address] Kusum Cagle, PT [address] [facility] [place] [address] 08/25/2025 1:00 PM EST Office Visit [address] [place] [address] Nirali Vo, DO [address] [place] [address] 10/11/2025 8:30 AM EST Office Visit [address] [place] [address] Nirali Vo, DO [address] [place] [address] documented as of this encounter Visit Diagnoses Not on filedocumented in this encounter Care Teams Sales And Marketing Professional Relationship Specialty Start Date End Date El-Nirali Amaya DO [address] [place] [address] PCP - General Family Medicine 07/22/24 Castillo Fuller MD Physician Obstetrics and Gynecology 02/07/21 Иван Carmen MD [address] [place], [place] [address] Referring Provider Child Nutrition Assistant 09/25/22 Zamzam Escobar, ASSESSMENT MANAGER [address] [place] [address] Solar Photovoltaic Designer Clinical Social Work 10/13/22 06/20/25 documented as of this encounter
--- OUTSIDE RECORDS SUMMARY | 2025-07-14 13:11 | XMS_ITS | Encounter Summary ---
Author Organization [facility] Address [address] [place] [address] Care Team Providers Care Food Service Agent Name Role Phone Rehana Arriaga APRN Primary Care Provider [phone] Rehana Arriaga APRN Unavailable [phone] Pcp, No Primary Care Provider Unavailabl e Vida Ponce DO Primary Care Provider [phone] Castillo Fuller MD Unavailable [phone] Mychart, Generic Provider Unavailable [phone] Zamzam Escobar [facility] Unavailable [phone] Nirali Vo DO Primary Care Provider + [phone] Encounter Details Date Type Department Care Team (Late st Contact Info) Description 05/29/2016 Scanned Document [address] [phone] Provider, Generic Social History Tobacco Use Types [...] Info) Description 07/21/2025 11:00 AM EST Evaluation [facility] [address] [place] [address] Kusum Cagle, PT [address] [place] [address] 07/28/2025 8:00 AM EST Treatment [facility] [address] [place] [address] Kusum Cagle, PT [address] [place] [address] 08/04/2025 2:00 PM EST Treatment [facility] [address] [place] [address] Kusum Cagle, PT [address] [place] [address] 08/11/2025 12:30 PM EST Treatment [facility] [address] [place] [address] Kusum Cagle, PT [address] [place] [address] 08/18/2025 12:30 PM EST Treatment [facility] [address] [place] [address] Kusum Cagle, PT [address] [place] [address] 08/25/2025 1:00 PM EST Office Visit [facility] [address] [facility] [place] [address] Nirali Vo, DO [address] [place] [address] 10/11/2025 8:30 AM EST Office Visit [facility] [address] [facility] [place] [address] Nirali Vo, DO [address] [place] [address] documented as of this encounter Visit Diagnoses Not on filedocumented in this encounter Care Teams Food Service Agent Relationship Specialty Start Date End Date Rehana Arriaga APRN [address] [place] [address] PCP - General Internal Medicine 04/19/15 08/17/17 Pcp, No PCP - General General Medicine 08/18/17 02/06/21 Vida Ponce DO [address] [place] [address] PCP - General Family Medicine 02/07/21 07/21/24 Nirali Vo DO [address] [place] [address] PCP - General Family Medicine 07/22/24 Rehana Arriaga APRN [address] [place] [address] Internal Medicine 04/19/15 02/06/21 Castillo Fuller MD [address] [place] [address] Physician Obstetrics and Gynecology 02/07/21 Иван Carmen MD [address] [place] [address] Referring Provider Nursing Clerk 09/25/22 Zamzam Escobar POLICE INVESTIGATOR [address] [place] [address] Steamfitter Supervisor Clinical Social Work 10/13/22 06/20/25 documented as of this encounter
== END 2025-07-14 12:01 | disposition home or self-care (01) ==
LOC: HO.HOS 11:34
PROVIDERS: PCP Student in an Organized Health Care Education/Training Program; Visit Provider Physician Assistant
DX: S83.242A Other tear of medial meniscus, current injury, left knee, initial encounter (principal)
CPT/HCPCS: 99024

== ENCOUNTER 2025-07-28 10:35 | Outpatient (REF) | payer OTHER, SELFPAY ==
--- NOTE | ~2025-07-28 | MM_ITS ---
EXAMINATION: MM SCREENING DIGITAL BREAST TOMOSYNTHESIS, BILATERAL CLINICAL INFORMATION: Screening. Asymptomatic. COMPARISON: Mammography: No prior imaging available for comparison. TECHNIQUE: Digital breast mammography with tomosynthesis is performed in both the craniocaudal and mediolateral oblique views along with computer-aided detection (CAD). FINDINGS: There are scattered areas of fibroglandular density. Right: Focal asymmetry upper outer breast posterior depth. No suspicious calcifications or other abnormal findings. Left: There are no significant masses, abnormal calcifications, or other abnormalities. MM/MM tomosynthesis screening BI IMPRESSION: Additional imaging is recommended ASSESSMENT: BI-RADS Category 0: Incomplete - Need additional Imaging Evaluation RECOMMENDATION: 1. Additional views of the right breast. 2. Targeted ultrasound if warranted after review of the additional views. 3. Radiology department staff will contact the patient for additional imaging. Additional Imaging required Electronically signed by: Yoana Olivas DO 07/31/2025 04:37 PM [facility]
--- OUTSIDE RECORDS SUMMARY | 2025-07-28 13:13 | XMS_ITS | Clinical Summary ---
Author Organization [facility] Address [address] [place] [address] Care Team Providers Care Design Chief Name Role Phone Tressa Dennis Primary Care [...] PM EST FASTING: YES Testing Performed at: [facility], [address] [place] [address], [place] [address], , Geology Teacher: Marla Pearson MD CLPOL#[id number] Nery Carolina MD LABORATORY Final Result PHCT CONVERSIONS from Last 3 Months or Most Recently Relevant to Health Maintenance Care Teams Design Chief Relationship Specialty Start Date End Date Tressa Dennis [address] [place] [address] PCP - General 04/20/23
== END 2025-07-28 10:36 | disposition home or self-care (01) ==
LOC: HO.MAMMO 10:35
PROVIDERS: Visit Provider Student in an Organized Health Care Education/Training Program
DX: Z12.31 Encounter for screening mammogram for malignant neoplasm of breast (principal)
CPT/HCPCS: 77063; 77067

== ENCOUNTER → 2025-07-28 10:45 | Outpatient (BNV) | payer OTHER, SELFPAY | PROVIDERS: Visit Provider Internal Medicine | DX: Z12.31 Encounter for screening mammogram for malignant neoplasm of breast (principal) | CPT/HCPCS: 77063; 77067 ==

== ENCOUNTER 2025-08-17 09:07 | Outpatient (AMB) | payer OTHER, SELFPAY ==
--- OUTSIDE RECORDS SUMMARY | 2022-12-09 14:28 | XMS_ITS | Encounter Summary ---
Author Organization [facility] Address [address] [place] [address] Care Team Providers Care Welder Apprentice Combination Name Role Phone Vida Ponce DO Primary Care Provider [phone] Castillo Fuller MD Unavailable [phone] [place]erm[place], Generic Provider Unavailable [phone] Zamzam Escobar [facility] Unavailable [phone] Encounter Details Date Type Department Care Team (Late st Contact Info) Description 12/09/2022 3:28 PM EDT Hospital Encounter [facility] [address] [place] [phone] Dian Haney PA [address] [place] [address] Social History Tobacco Use Types Packs/Day Years Used Date Smoking Tobacco: Never Smokeless Tobacco: Never Alcohol Use Standard Drinks/Week Comments Not Currently 0 (1 standard drink = 0.6 oz pur e alcohol) [facility] Utilities Answer Date Recorded In the past 12 months has [employer] electric, gas, oil, or water company threatened to shut off services in your home? No 03/27/2025 Social Connection and Isolation Panel Answer Date Recorded In a typical week, how many times do you talk on the phone with family, friends, or neighbors? More than three times a week 03/27/2025 Frequency of Social Gatherin gs with Friends and Family Not on file 03/27/2025 Attends [employer] Services Not on file 03/27 Active Member of Clubs or Organizations Not on f ile 03/27/2025 Attends Club or Organization Meetings Not on nereida e 03/27/2025 Marital Status Not on file 03/27/2025 AUDIT-C Answer Date Recorded Q1: How often do you have a drink containing alc ohol? Monthly or less 03/27/2025 Q2: How many drinks containi ng alcohol do you have on a typical day when you are drinking? 1 or 2 03/27/2025 Frequency of Binge Drinking Not on file 03/14 Overall Financial Resource Strain (CARDIA) Answe r Date Recorded How hard is it for you to pa y for the very basics like food, housing, medical care, and heating? Not very hard 10/13/2022 PHQ-2 Answer Date Recorded PHQ-2 Total Score 0 10/03/2024 Hunger Vital Sign Answer Date Recorded Within the past 12 months, y ou worried that your food would run out before you got the money to buy more. Never true 03/27/20 25 Within the past 12 months, t he food you bought just didn't last and you didn't have money to get more. Never true 03/27/2025 PRAPARE - Transportation Answer Date Re corded In the past 12 months, has l ack of transportation kept you from medical appointments or from getting medications? No 03/14 In the past 12 months, has l ack of transportation kept you from meetings, work, or from getting things needed for daily living? No 03/27/2025 Housing Stability Vital Sign Answer Nico e Recorded In the last 12 months, was t here a time when you were not able to pay the mortgage or rent on time? No 10/13/2022 Number of Places Lived in the Last Year Not on f ile 10/13/2022 In the last 12 months, was t here a time when you did not have a steady place to sleep or slept in a usp (including now)? No 10/13/2022 Housing Stability Vital Sign Answer Nico e Recorded In the last 12 months, was t here a time when you were not able to pay the mortgage or rent on time? No 03/27/2025 In the past 12 months, how m any times have you moved where you were living? 0 03/27/2025 At any time in the past 12 m [facility], were you homeless or living in a usp (including now)? No 03/27/2025 Physical Activity Answer Date Recorded On average, how many days pe r week do you engage in moderate to strenuous exercise (like a brisk walk)? 0 days 10/03/2024 On average, how many minutes do you exercise per day at this level? 0 min 10/03/2024 Education Answer Date Recorded What is the highest level of school you have completed or the highest degree you have received? Master's degree (e.g., MA, MS, Angel, MEd, FOOD SALES CLERK, LAUREN) 03/27/2025 Comments No Sex and Gender Information Value Date Recorded Sex Assigned at Female 05/30/2024 10:22 AM EDT Legal Sex Female 7:01 PM EDT Gender Identity Not on file Sexual Orientation Choose not to disclose 2024 8:34 AM EST COVID-19 Exposure Response Date Recorded In the last 10 days, have yo u been in contact with someone who was confirmed or suspected to have Coronavirus/COVID-19? No / Unsure 12/08/2022 10:33 AM EDT documented as of this encounter Functional Status * Q1: How often do you have a drink containing alcohol? Answer Date of Assessment Author Monthly or less 03/27/2025 10:01 AM EDT Mychart, Generic * Q2: How many drinks containing alcohol do you have on a typical day when you are drinking? Answer Date of Assessment Author 1 or 2 03/27/2025 10:01 AM EDT Mychart, Generic * PHQ-2 Total Score Answer Date of Assessment Author 0 10/03/2024 11:07 AM EST Mychart, Generic * Over the past 2 weeks, how often have you been bothered by any of the following problems? Question Answer Date of Assessment Author Patient Health Questionnaire-2 Score 0 09/15 11:07 AM EST Mychart, Generic * Little interest or pleasure in doing things Answer Date of Assessment Author Not at all 10/03/2024 11:07 AM EST Mychart, Generic * Feeling down, depressed, or hopeless Answer Date of Assessment Author Not at all 10/03/2024 11:07 AM EST Mychart, Generic * Question Answer Date of Assessment Author Patient Health Questionnaire-9 Score 2 09/15 11:07 AM EST Mychart, Generic * Trouble falling or staying asleep, or sleeping too much Answer Date of Assessment Author Several days 10/03/2024 11:07 AM EST Mychart, Generic * Feeling tired or having little energy Answer Date of Assessment Author Several days 10/03/2024 11:07 AM EST Mychart, Generic * Poor appetite or overeating Answer Date of Assessment Author Not at all 10/03/2024 11:07 AM EST Mychart, Generic * Feeling bad about yourself - or that you are a failure or have let yourself or your family down Answer Date of Assessment Author Not at all 10/03/2024 11:07 AM EST Mychart, Generic * Trouble concentrating on things, such as reading the newspaper or watching television Answer Date of Assessment Author Not at all 10/03/2024 11:07 AM EST Mychart, Generic * Moving or speaking so slowly that other people could have noticed? Or the opposite - being so fidgety or restless that you have been moving around a lot more than usual. Answer Date of Assessment Author Not at all 10/03/2024 11:07 AM EST Mychart, Generic * How difficult have these problems made it for you to do your work, take care of things at home, or get along with other people? Answer Date of Assessment Author Somewhat difficult 10/03/2024 11:07 AM EST Mycha rt, Generic * Over the last 2 weeks, how often have you been bothered by any of the following problems? Question Answer Date of Assessment Author RAMAN-7 Total Score 5 10/03/2024 11:08 AM EST Mychart, Generic * Feeling nervous, anxious, or on edge Answer Date of Assessment Author 1 10/03/2024 11:08 AM EST Mychart, Generic * Not being able to stop or control worrying Answer Date of Assessment Author 1 10/03/2024 11:08 AM EST Mychart, Generic * Worrying too much about different things Answer Date of Assessment Author 1 10/03/2024 11:08 AM EST Mychart, Generic * Trouble relaxing Answer Date of Assessment Author 0 10/03/2024 11:08 AM EST Mychart, Generic * Being so restless that it is hard to sit still Answer Date of Assessment Author 0 10/03/2024 11:08 AM EST Mychart, Generic * Becoming easily annoyed or irritable Answer Date of Assessment Author 1 10/03/2024 11:08 AM EST Mychart, Generic * Feeling afraid as if something awful might happen Answer Date of Assessment Author 1 10/03/2024 11:08 AM EST Mychart, Generic * Question Answer Date of Assessment Author Thoughts that you would be better off or hurting yourself in some way Not at all 10/03/2024 11:07 AM EST Yohan-Jhon Amaya DO PHQ-9 Total Score 2 10/03/2024 11:07 AM EST Mychart, Generic documented as of this encounter Plan of Treatment Upcoming Encounters Date Type Department Care Team (Late st Contact Info) Description 08/18/2025 12:30 PM EST Treatment [address] [phone] Arnel Bedoya, PT [address] [address] 08/25/2025 1:00 PM EST Office Visit [address] [phone] Nirali Vo DO [address] [place] [address] 08/25/2025 1:30 PM EST Treatment [address] [phone] Arnel Bedoya, PT [address] [address] 10/11/2025 8:30 AM EST Office Visit [address] [place] [phone] Nirali Vo, [address] [place] [address], [place] [address] documented as of this encounter Goals Goal Patient Goal Type Associated Problems Recent Progress Patient-Stated? Author PT LTG 1 Physical Therapy No Kusum Cagle, PT Note: Pt. Will have improved Left knee active ROM Flex= 135, Ext= 0 Gross LE MMT score >/= 5/5 to improve stair negotiation Subjectively report ability to amb for 90 min to ensure ability to navigate the community Subjectively report ability to negotiate one flight of stairs with reciprocal pattern and use of 1 HR to ensure safe mobility throughout the home Achieve greater than a 10 point improvement in the Knee Outcome Survey - Activities of Daily Living Scale (KOS - ADLS) to improve quality of life Length of LTwks PT STG 1 Physical Therapy No Kusum Cagle, PT Note: Patient will be independent with HEP in the next 4 weeks to sustain progress made in physical therapy. documented as of this encounter Procedures Procedure Name Priority Date/Time Associated Diagnosis Comments XR ANKLE 3+ VIEWS-RIGHT STAT 12/09/2022 3:37 PM EDT Acute right ankle pain documented in this encounter Results * XR Ankle 3+ views-Right (12/09/2022 3:37 PM EDT) Anatomical Region Laterality Modality Ankle Right Computed Radiogr aphy 12/09/2022 3:39 PM EDT Impressions 12/09/2022 3:40 PM EDT Lateral soft tissue swelling. No fracture or malalignment. Narrative 12/09/2022 3:40 PM EDT AP, lateral, and oblique views of the right ankle were obtained. No prior studies for comparison. HISTORY: acute right lateral ankle pain. Fall today. FINDINGS: Alignment is normal. No fracture or deformity. The mortise is intact. There is mild lateral swelling. There is a plantar heel spur. Procedure Note Micah Rodas MD - 12/09/2022 AP, lateral, and oblique views of the right ankle were obtained. No priorstudies for comparison. HISTORY: acute right lateral ankle pain. Fall today. FINDINGS: Alignment is normal. No fracture or deformity. The mortise isintact. There is mild lateral swelling. There is a plantar heel spur. IMPRESSION: Lateral soft tissue swelling. No fracture or malalignment. us Dian OSEGUERA IMG DIAGNOSTIC IMAGING ORDERABLE S Final Result documented in this encounter Visit Diagnoses Not on filedocumented in this encounter Care Teams Welder Apprentice Combination Relationship Specialty Start Date End Date Vida Ponce DO [address] [place] [address] PCP - General Family Medicine 02/07/21 07/21/24 Castillo Fuller MD [address] [place] [address] Physician Obstetrics and Gynecology 02/07/21 Иван Carmen MD [address] [place] [id number] Referring Provider Metal Leaf Layer 09/25/22 Zamzam Escobar LCSW [address] [place] [address] Infusion Rn Clinical Social Work 10/13/22 06/20/25 documented as of this encounter
--- NOTE | 2025-08-17 09:11 | MHC.OFFVIS ---
Intake Visit Reasons: PO-Lt Knee 06/30/25 DR Intake Note: Yi is a 45 year old female who presents today post operatively after undergoing a left knee arthroscopy performed by Dr. Holder on 06/30/25. At her last visit with Toro Roldan, patient was advise to work with physical therapy to work on motion, strength and conditioning exercises. Today patient states she is attending P.T and is having noticeable improvements. States her motion and strengthening hs improved. Allergies Penicillins Allergy (Severe, Verified 08/17/25 09:16) hives/facial swelling Medication List - Last Reconciled 08/17/25 by Thierry Holder MD cyanocobalamin (vitamin B-12) (Vitamin B-12) 500 mcg PO DAILY escitalopram oxalate 10 mg PO DAILY lactobacillus comb no.10 (Probiotic) 20,000 mmu cells PO DAILY meloxicam 15 mg PO DAILY omega 3-puq-tdb-fish oil 300-1,000 mg (Fish Oil) 1 cap PO DAILY phentermine 37.5 mg PO DAILY turmeric root extract 500 mg PO DAILY vitamin D2-vitamin K1 20-120 mcg/4 drops 4 drps PO DAILY PFSH Medical History (Updated 08/17/25 @ 09:42 by Thierry Holder MD) IUD (intrauterine device) in place Arthritis Anxiety Surgical History History of colonoscopy (~09/02/24) History of surgery on right wrist History of hysteroscopy Status post incision and drainage Social History Are you a primary critical care nurse practitioner to a significant other at home: No Do you presently have visiting nurse or other home services: No Alcohol intake: current Alcohol intake frequency: holidays/special occasions only Comment: tolerable; medicated with po prior to discharge Patient Tobacco Use Status: Never used Tobacco Current occupational status: employed 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 She will continue with her exercise program. She will contact me prior to her follow-up appointment in 3 months should any questions or concerns arise. Feel free to call me at any time should questions regarding her orthopedic management. Coding Level of Care Code Global (34406) Diagnoses Left knee pain M25.562
--- OUTSIDE RECORDS SUMMARY | 2025-08-17 09:58 | XMS_ITS | Encounter Summary ---
Author Organization [facility] Address [address] [place] [address] Care Team Providers Care Director Of Accounts Receivable Name Role Phone Rehana Arriaga APRN Primary Care Provider Rehana Arriaga APRN Unavailable [phone] Pcp, No Primary Care Provider Unavailabl e Vida Ponce DO Primary Care Provider [phone] Castillo Fuller MD Unavailable [phone] Mychart, Generic Provider Unavailable [phone] Zamzam Escobar [facility] Unavailable [phone] Nirali Vo DO Primary Care Provider + [phone] Encounter Details Date Type Department Care Team (Late st Contact Info) Description 04/14/2016 Scanned Document [address] [phone] Provider, Generic Social History Tobacco Use Types [...] Info) Description 08/18/2025 12:30 PM EST Treatment [address] [address] Arnel Bedoya, PT [address] [address] 08/25/2025 1:00 PM EST Office Visit [address] [place] [address] El-Alan Amayarah H, DO [address] [place] [address] 08/25/2025 1:30 PM EST Treatment [address] [address] Arnel Bedoya, PT [address] [address] 10/11/2025 8:30 AM EST Office Visit [address] [place] [address] El-Nirali Amaya H, DO [address] [place] [address] documented as of this encounter Visit Diagnoses Not on filedocumented in this encounter Care Teams Director Of Accounts Receivable Relationship Specialty Start Date End Date Rehana Arriaga APRN [address] [place] [address] PCP - General Internal Medicine 04/19/15 08/17/17 Pcp, No PCP - General General Medicine 08/18/17 02/06/21 Vida Ponce DO [address] [place] [address] PCP - General Family Medicine 02/07/21 07/21/24 Nirali Vo DO [address] [place] [address] PCP - General Family Medicine 07/22/24 Rehana Arriaga APRN [address] [place] [address] Internal Medicine 04/19/15 02/06/21 Castillo Fuller MD [address] [place] [address] Physician Obstetrics and Gynecology 02/07/21 Иван Carmen MD [address] [place] [address] Referring Provider Podiatric Medicine Professor 09/25/22 Zamzam Escobar LCSW [address] [place] [address] Food Service Substitute Clinical Social Work 10/13/22 06/20/25 documented as of this encounter
--- OUTSIDE RECORDS SUMMARY | 2025-08-17 09:58 | XMS_ITS | Encounter Summary ---
Author Organization [facility] Address [address] [place] [address] Care Team Providers Care Slunk Skinner Name Role Phone Castillo Fuller MD Unavailable [phone] Иван Carmen MD Unavailable [phone] Nirali Vo DO Primary Care Provider [phone] Encounter Details Date Type Department Care Team (Late st Contact Info) Description 07/18/2025 Scanned Document [facility] [address] [place] [address] Orthopedic Surgery, Scan Social History Tobacco Use Types Packs/Day Years Used Date Smoking Tobacco: Never Smokeless Tobacco: Never Alcohol Use Standard Drinks/Week Comments Not Currently 0 (1 standard drink = 0.6 oz pur e alcohol) [facility] Utilities Answer Date Recorded In the past 12 months has [employer], gas, oil, or water [employer] threatened to shut off services in your home? No 03/27/2025 Social Connection and Isolation Panel Answer Date Recorded In a typical week, how many times do you talk on the phone with family, friends, or neighbors? More than three times a week 03/27/2025 Frequency of Social Gatherin gs with Friends and Family Not on file 03/27/2025 Attends Temple Services Not on file 03/27 Active Member [...] place to sleep or slept in a care home (including now)? No 10/13/2022 Housing Stability [...] any time in the past 12 m [facility], were you homeless or living in a care home (including now)? No 03/27/2025 Physical Activity [...] Master's degree (e.g., MA, MS, Angel, MEd, SUPERVISOR PASTE MIXING, LAUREN) 03/27/2025 Comments No Sex and Gender [...] Info) Description 08/18/2025 12:30 PM EST Treatment [address] [address] Arnel Bedoya, PT [address] [address] 08/25/2025 1:00 PM EST Office Visit [address] [address] Nirali Vo DO [address] [address] 08/25/2025 1:30 PM EST Treatment [address] [address] Arnel Bedoya, PT [address] [address] 10/11/2025 8:30 AM EST Office Visit [address] [address] Nirali Vo DO [address] [place] [address] documented as of this encounter Goals Goal [...] physical therapy. documented as of this encounter Visit Diagnoses Not on filedocumented in this encounter Care Teams Slunk Skinner Relationship Specialty Start Date End Date Nirali Vo DO [address] [place] [address] PCP - General Family Medicine 07/22/24 Castillo Fuller MD Physician Obstetrics and Gynecology 02/07/21 Иван Carmen MD [address] [place] [address] Referring Provider Chemical Plant Operator Supervisor 09/25/22 documented as of this encounter
--- OUTSIDE RECORDS SUMMARY | 2025-08-17 09:59 | XMS_ITS | Clinical Summary ---
Author Organization [facility] Address [address] [place] [address] Care Team Providers Care Mill Operator Head Name Role Phone Castillo Fuller MD Unavailable [phone] Иван Carmen Provider Unavailable [phone] Nirali Vo DO Primary Care Provider [phone] Allergies Active Allergy Reactions Criticality Noted Date Comments Penicillins Anaphylaxis,Hives,Shortness Of Breath High 04/19/2015 Medications * This document contains information received from the source organization and may not represent a complete record from that organization. levonorgestrel (MIRENA) 20 mcg/24hr IUD 1 Intra Uterine Device by Intrauterine route once. Active escitalopram (LEXAPRO) 10 MG tabletIndicatio ns:Generalized anxiety disorder Take 1 tablet (10 mg total) by mouth daily. 90 tablet 3 5 026 Active phentermine (ADIPEX-P) 37.5 MG tabletIndicatio ns:BMI 34.0-34.9,adult Take 1 tablet (37.5 mg total) by mouth every morning before breakfast. 90 tablet 5 025 Active meloxicam (MOBIC) 15 MG tabletIndicatio ns:Chronic pain of left knee TAKE 1 TABLET (15 MG TOTAL) BY MOUTH DAILY. 90 tablet 5 026 Active doxycycline (VIBRAMYCIN) 100 MG capsuleIndicati ons:Cellulitis, unspecified cellulitis site Take 1 capsule (100 mg total) by mouth 2 (two) times a day. 20 capsule 025 Active Problems Problem Noted Date Diagnosed Date BMI 34.0-34.9,adult 02/23/2019 Overview (07/20/2024): Impression - [id number]: Diet exercise and portion control stressed. Avoid [...] Diagnosed Date Resolved Date Abnormal mammogram 07/20/2024 4 Menorrhagia with regular cycle 07/20/2024 07/22/2024 Skin tag of anus 02/15/2018 07/20/2024 Acute maxillary sinusitis 11/05/2015 Otitis media 04/19/2015 11/05/2015 Encounters Date Type Department Care Team Description 08/06/2025 12:05 PM EST Office Visit [facility] [address] [place] [address] Clarence Yuan MD Signs, Jessica Mackay APRN Cellulitis, unspecified cellulitis site (Primary Dx) 08/01/2025 1:00 PM EST Treatment [facility] [address] [place] [address] Mino Salvador PA-C Meyer, Morgan J, PT Acute pain of left knee (Primary Dx); Orthopedic aftercare; Tear of medial meniscus of left knee, unspecified tear type, unspecified whether old or current tear, sequela; Osteoarthritis of left knee, unspecified osteoarthritis type 07/28/2025 8:00 AM EST Treatment [facility] [address] [facility] [place] [address] Mino Salvador, Arnel Araiza, PT Acute pain of left knee (Primary Dx); Orthopedic aftercare; Tear of medial meniscus of left knee, unspecified tear type, unspecified whether old or current tear, sequela; Osteoarthritis of left knee, unspecified osteoarthritis type 07/21/2025 11:00 AM EST Evaluation [facility] [address] [place] [address], [place] [address] System, Provider Not In Kusum Cagle, PT Acute pain of left knee (Primary Dx); Orthopedic aftercare; Tear of medial meniscus of left knee, unspecified tear type, unspecified whether old or current tear, sequela; Osteoarthritis of left knee, unspecified osteoarthritis type 07/18/2025 Scanned Document [facility] [address] [place] [address] Orthopedic Surgery, Scan 06/08/2025 1:30 PM EDT Office Visit [facility] Department Of Used Building Materials Yard Worker [address] [address] Castillo Fuller MD Encounter for gynecological examination without abnormal finding (Primary Dx); Menopausal symptom 05/26/2025 9:00 AM EDT Office Visit [address] [address] Nirali Vo H, DO BMI 34.0-34.9,adult (Primary Dx); Perimenopause from Last 3 Months Immunizations Immunization Administration [...] drink = 0.6 oz pur e alcohol) [facility] Fish Natureities Answer Date Recorded In the past 12 months has [employer], gas, oil, or water [employer] threatened to shut off services in your home? No 03/27/2025 Social Connection and Isolation Panel Answer Date Recorded In a typical week, how many times do you talk on the phone with family, friends, or neighbors? More than three times a week 03/27/2025 Frequency of Social Gatherin gs with Friends and Family Not on file 03/27/2025 Attends Sabianism Services Not on file 03/27 Active Member [...] place to sleep or slept in a [place] facility (including now)? No 10/13/2022 Housing Stability Vital Sign Answer Nico e Recorded In the last 12 months, was t here a time when you were not able to pay the mortgage or rent on time? No 03/27/2025 In the past 12 months, how m any times have you moved where you were living? 0 03/27/2025 At any time in the past 12 m [facility], were you homeless or living in a [place] facility (including now)? No 03/27/2025 Physical Activity Answer [...] Master's degree (e.g., MA, MS, Angel, MEd, FRAME STRIPPER, LAUREN) 03/27/2025 Comments No Sex and Gender Information Value Date Recorded Sex Assigned at Female 05/30/2024 10:22 AM EDT Legal Sex Female 7:01 PM EDT Gender Identity Not on file Sexual Orientation Choose not to disclose 2024 8:34 AM EST Last Filed Vital Signs Vital Sign Reading Time Taken Comments Blood Pressure 127/88 08/06/2025 12:13 PM EST Pulse 101 08/06/2025 12:13 PM EST Temperature 36.7 C (98 F) 08/06/2025 12:13 PM EST Respiratory Rate 18 05/26/2025 8:49 AM EDT Oxygen Saturation 99% 08/06/2025 12:13 PM EST Inhaled Oxygen Concentration - - Weight 77.6 kg (171 lb) 08/06/2025 12:13 PM EST Height 157.5 cm (5' 2 ) 08/06/2025 12:13 PM EST Body Mass Index 31.28 08/06/2025 12:13 PM EST Plan of Treatment Upcoming Encounters Date Type Department Care Team (Late st Contact Info) Description 08/18/2025 12:30 PM EST Treatment [address] [address] Arnel Bedoya, PT [address] [address] 08/25/2025 1:00 PM EST Office Visit [address] [address] Nirali Vo H, DO [address] [place] [address] 08/25/2025 1:30 PM EST Treatment [address] [address] Arnel Bedoya, PT [address] [address] 10/11/2025 8:30 AM EST Office Visit [place] [address] [facility] [place] [address] TavoNirali DO [address] [facility] 1 [place] [address] Health Maintenance Due Date Last Done Comments Hepatitis C Virus Screening 1979 Hepatitis B Vaccines (1 of 3 - 19+ 3-dose series) 1998 Mammogram 07/28/2026 07/28/2025, 04/14, 04/22/2023, Additional history exists Physical 06/08/2027 06/08/2025, 09/15, [...] on patient's age to complete this topic Goals Goal Patient Goal Type Associated Problems [...] to sustain progress made in physical therapy. Procedures Procedure Name Priority Date/Time Associated Diagnosis Comments IMAGING BREAST/BX/MAMMO Routine 07/28/2025 4:34 PM EST THINPREP PAP(SACK SEWER) HPV SCR RFX HPV 16,18/45 Routine 06/08/2025 2:03 PM EDT Encounter for gynecological examination without abnormal finding ESTRADIOL Routine 06/08/2025 1:56 PM EDT Menopausal symptom FOLLICLE STIMULATING HORMONE (FSH) Routine 06/08/2025 1:56 PM EDT Menopausal symptom TSH REFLEX TO FREE T4 Routine 06/08/2025 1:56 PM EDT Menopausal symptom from Last 3 Months Results * Imaging Breast/Bx/Mammo Result (07/28/2025 4:34 PM EST) Anatomical Region Laterality Modality Other us Scan Radiology IMG LEGACY PROCEDURES Final Resu lt * ThinPrep Pap(Index Editor) HPV Scr Rfx HPV 16,18/45 (06/08/2025 2:03 PM EDT) 06/08/2025 2:03 PM EDT Narrative [facility] - 06/20/2025 10:43 AM EDT To view the final report click the scan hyperlink below. us Castillo Fuller MD LAB AMB PATH/CYTO ORDERABLES Final Result [facility] [address] [place] [address], * TSH REFLEX FREE T4 (06/08/2025 1:56 PM EDT) Tsh Reflex To Free T4 1.93 0.40 - 4.50 uIU/ml [facility] Blood Blood specimen / Unknown 06/08/2025 1:56 PM EDT 06/08/2025 6:14 PM EDT us Castillo Fuller MD LAB BLOOD ORDERABLES Final Re sult Performing Organization Address [facility] [place] [address], * ESTRADIOL (06/08/2025 1:56 PM EDT) Estradiol 126.0 pg/mL [facility] Comment: Adult Female: Follicular Phase: 12.5 - 166.0 pg/mL Ovulation phase: 85.8 - 498.0 pg/mL Luteal phase: 43.8 - 211.0 pg/mL Postmenopausal: < 54.7 pg/mL : 1st Trimester: 215.0 - >4300.0 pg/mL Girls (1-10 years): 6.0 - 27.0 pg/mL Male: < 40 pg/mL Blood Blood specimen / Unknown 06/08/2025 1:56 PM EDT 06/08/2025 6:14 PM EDT us Castillo Fuller MD LAB BLOOD ORDERABLES Final Re sult Performing Organization Address [facility] [place] [address], * FOLLICLE STIMULATING HORMONE (FSH) (06/08/2025 1:56 PM EDT) FSH 7.5 mIU/mL [facility] Comment: Adult Female: Follicular phase: 3.5 - 12.5 mIU/mL Ovulatory phase: 4.7 - 21.5 mIU/mL Luteal phase: 1.7 - 7.7 mIU/mL Postmenopausal: 25.8 - 134.8 mIU/mL Adult Male: 1.5 - 12.4 mIU/mL Blood Blood specimen / Unknown 06/08/2025 1:56 PM EDT 06/08/2025 6:14 PM EDT us Castillo Fuller MD LAB BLOOD ORDERABLES Final Re sult MARTA MARTINEZ [address] [facility] [address], from Last 3 Months Insurance Cover Cover [employer] [place] [employer] Advance Directives * Full Code (Latest Code Status on File) Date Activated Date Inactivated Comments 08/21/2017 7:54 AM Care Teams Mill Operator Head Relationship Specialty Start Date End Date Nirali Vo DO [address] [facility] 1 [place] [address] PCP - General Family Medicine 07/22/24 Castillo Fuller MD Physician Obstetrics and Gynecology 02/07/21 Иван Carmen MD [address] [place] [address] Referring Provider Secondary School Special Ed Teacher 09/25/22
--- OUTSIDE RECORDS SUMMARY | 2025-08-17 09:59 | XMS_ITS | Encounter Summary ---
Author Organization [facility] Address [address] [place] [address] Care Team Providers Care Bank Examiner Name Role Phone Castillo Fuller MD Unavailable [phone] Иван Carmen MD Unavailable [phone] Zamzam Escobar [facility] Unavailable [phone] Nirali Vo DO Primary Care Provider [phone] Encounter Details Date Type Department Care Team (Late st Contact Info) Description 09/06/2024 Scanned Document [facility] Gastroenterology, Scan Social History Tobacco [...] place to sleep or slept in a [facility] (including now)? No 10/13/2022 Comments No Sex [...] Info) Description 08/18/2025 12:30 PM EST Treatment [address] [address] Arnel Bedoya, PT [address] [address] 08/25/2025 1:00 PM EST Office Visit [address] [address] Nirali Vo, DO [address] [place] [address] 08/25/2025 1:30 PM EST Treatment [facility] [address] [place] [address] Arnel Bedoya, PT 85 [facility] [address] [place] [address] 10/11/2025 8:30 AM EST Office Visit [facility] [address] [place] [address] Nirali Vo DO [address] [place] [address] documented as of this encounter Visit Diagnoses Not on filedocumented in this encounter Care Teams Bank Examiner Relationship Specialty Start Date End Date Nirali Vo DO [address] [place] [address] PCP - General Family Medicine 07/22/24 Castillo Fuller MD Physician Obstetrics and Gynecology 02/07/21 Иван Carmen MD [address] [place] [address] Referring Provider Lesson Instructor 09/25/22 Zamzam Escobar LCSW [address] [place] [address] Stock Transfer Clerk Clinical Social Work 10/13/22 06/20/25 documented as of this encounter
--- OUTSIDE RECORDS SUMMARY | 2025-08-17 09:59 | XMS_ITS | Encounter Summary ---
Author Organization [facility] Address [address] [place] [address] Care Team Providers Care Substance Abuse Counselor Name Role Phone Castillo Fuller MD Unavailable [phone] Иван Carmen MD Unavailable [phone] Zamzam Escobar [facility] Unavailable [phone] Nirali Vo DO Primary Care Provider [phone] Encounter Details Date Type Department Care Team (Late st Contact Info) Description 10/14/2024 Scanned Document [facility] GASTRO SCAN Gastroenterology, Scan Social History Tobacco [...] a group home (including now)? No 10/13/2022 Physical Activity Answer [...] Info) Description 08/18/2025 12:30 PM EST Treatment [address] [address] Arnel Bedoya, PT 85 [facility] [address] [place] [address] 08/25/2025 1:00 PM EST Office Visit [address] [address] Nirali Vo, DO [address] [place] [address] 08/25/2025 1:30 PM EST Treatment [facility] [place] [address] [place] [address] Arnel Bedoya, PT 85 [facility] [address] [place] [address] 10/11/2025 8:30 AM EST Office Visit [facility] [address] [place] [address] Nirali Vo DO [address] [place] [address] documented as of this encounter Visit Diagnoses Not on filedocumented in this encounter Care Teams Substance Abuse Counselor Relationship Specialty Start Date End Date Nirali Vo DO [address] [place] [address] PCP - General Family Medicine 07/22/24 Castillo Fuller MD Physician Obstetrics and Gynecology 02/07/21 Иван Carmen MD [address] [place] [address] Referring Provider Door Captain 09/25/22 Zamzam Escobar LCSW [address] [place] [address] Ash Pit Worker Clinical Social Work 10/13/22 06/20/25 documented as of this encounter
--- OUTSIDE RECORDS SUMMARY | 2025-08-17 09:59 | XMS_ITS | Clinical Summary ---
Author Organization [facility] Address [address] [place] [address] Care Team Providers Care Hydrocrane Operator Name Role Phone Tressa Dennis Primary Care Provider + Active Problems Problem Noted Date Diagnosed Date Obesity 02/23/2019 Overview (10/18/2023): Impression - 23Feb2019: Diet exercise and portion control stressed. Avoid processed foods. Skin tag of anus 02/15/2018 Family History Medical History Relation Name Comments Inflammatory Bowel Disease Brother C rohn's disease : Brother CAD/PVD - Early Father coronary art dseiree disease : Father;49 year Cancer - Prostate [...] PM EST FASTING: YES Testing Performed at: [facility], [address] [place] [address], [place] [address], , Basin Tender: Marla Pearson MD CLPOL#[id number] Nery Carolina MD LABORATORY Final Result PHCT CONVERSIONS from Last 3 Months or Most Recently Relevant to Health Maintenance Care Teams Hydrocrane Operator Relationship Specialty Start Date End Date Tressa Dennis [address] [place] [address] PCP - General 04/20/23
--- OUTSIDE RECORDS SUMMARY | 2025-08-17 09:59 | XMS_ITS | Clinical Summary ---
Author Organization [facility] Address [address] [place] [address] Care Team Providers Care Metal Buggy Operator Name Role Phone Unavailable Primary Care Provider [...] Smear 2000 Depression Screening 09/14/2024 COVID-19 Vaccine (1 - 2024-2 6 season) 2025 Influenza Vaccine (#1) 2025 RSV [...]
--- OUTSIDE RECORDS SUMMARY | 2025-08-17 09:59 | XMS_ITS | Encounter Summary ---
Author Organization [facility] Address [address] [place] [address] Care Team Providers Care Bush And Vine Farmer Fruit Crops Name Role Phone Castillo Fuller MD Unavailable [phone] Иван Carmen MD Unavailable [phone] Zamzam Escobar [facility] Unavailable [phone] Nirali Vo DO Primary Care Provider [phone] Encounter Details Date Type Department Care Team (Late st Contact Info) Description 07/22/2024 Scanned Document [facility] PRIMARY CARE SCAN Primary Care, Scan [...] place to sleep or slept in a chcf (including now)? No 10/13/2022 Comments No Sex [...] television Several days 07/22/2024 10:56 AM Anastasia Redd MA Moving or speaking so slowly that [...] difficult at all 07/22/2024 10:56 AM EST Nirali Vo DO PHQ-9 Total Score 3 07/22/2024 10: 56 AM EST Anastasia Butts MA documented as of this encounter Plan of Treatment Upcoming Encounters Date Type Department Care Team (Late st Contact Info) Description 08/18/2025 12:30 PM EST Treatment [address] [address] Arnel Bedoya, PT [address] [address] 08/25/2025 1:00 PM EST Office Visit [address] [address] Nirali Vo, DO [address] [place] [address] 08/25/2025 1:30 PM EST Treatment [address] [address] Arnel Bedoya, PT [address] [address] 10/11/2025 8:30 AM EST Office Visit [address] [address] Nirali Vo, DO [address] [place] [address] documented as of this encounter Visit Diagnoses Not on filedocumented in this encounter Care Teams Bush And Vine Farmer Fruit Crops Relationship Specialty Start Date End Date Nirali Vo DO [address] [place] [address] PCP - General Family Medicine 07/22/24 Castillo Fuller MD Physician Obstetrics and Gynecology 02/07/21 Иван Carmen MD [address] [place], [place] [address] Referring Provider Map Compiler 09/25/22 Zamzam Escobar, LINE OUT MAN [address] [place] [address] Gearman Clinical Social Work 10/13/22 06/20/25 documented as of this encounter
--- OUTSIDE RECORDS SUMMARY | 2025-08-17 09:59 | XMS_ITS | Encounter Summary ---
Author Organization [facility] Address [address] [place] [address] Care Team Providers Care Installment Agent Name Role Phone Castillo Fuller MD Unavailable [phone] Иван Carmen MD Unavailable [phone] Zamzam Escobar [facility] Unavailable [phone] Nirali Vo DO Primary Care Provider [phone] Encounter Details Date Type Department Care Team (Late st Contact Info) Description 09/15/2024 Scanned Document [facility] GASTRO SCAN Gastroenterology, Scan Social History [...] place to sleep or slept in a skilled nursing (including now)? No 10/13/2022 Comments No Sex [...] Info) Description 08/18/2025 12:30 PM EST Treatment [address] [address] Arnel Bedoya, PT [address] [address] 08/25/2025 1:00 PM EST Office Visit [address] [address] Nirali Vo, DO [address] [place] [address] 08/25/2025 1:30 PM EST Treatment [facility] [address] [place] [address] Arnel Bedoya, PT 85 [facility] [address] [place] [address] 10/11/2025 8:30 AM EST Office Visit [facility] [address] [place] [address] Nirali Vo DO [address] [place] [address] documented as of this encounter Visit Diagnoses Not on filedocumented in this encounter Care Teams Installment Agent Relationship Specialty Start Date End Date Nirali Vo DO [address] [place] [address] PCP - General Family Medicine 07/22/24 Castillo Fuller MD Physician Obstetrics and Gynecology 02/07/21 Иван Carmen MD [address] [place] [address] Referring Provider Sales Operations Consultant 09/25/22 Zamzam Escobar LCSW [address] [place] [address] Smog Technician Clinical Social Work 10/13/22 06/20/25 documented as of this encounter
--- OUTSIDE RECORDS SUMMARY | 2025-08-17 09:59 | XMS_ITS | Encounter Summary ---
Author Organization [facility] Address [address] [place] [address] Care Team Providers Care Linderman Machine Operator Name Role Phone Rehana Arriaga APRN Primary Care Provider [phone] Rehana Arriaga APRN Unavailable [phone] Pcp, No Primary Care Provider Unavailabl e Vida Ponce DO Primary Care Provider [phone] Castillo Fuller MD Unavailable [phone] Vida Ponce DO Primary Care Provider [phone] Иван Carmen Provider Unavailable [phone] Zamzam Escobar CONFERENCE CONCIERGE Unavailable [phone] Nirali Vo DO Primary Care Provider + [phone] Encounter Details Date Type Department Care Team (Late st Contact Info) Description 04/16/2015 Scanned Document [address] [phone] Provider, Generic Social History Tobacco Use Types [...] Info) Description 08/18/2025 12:30 PM EST Treatment [address] [address] Arnel Bedoya, PT [address] [address] 08/25/2025 1:00 PM EST Office Visit [address] [place] [address] El-Alan Amayarah H, DO [address] [place] [address] 08/25/2025 1:30 PM EST Treatment [address] [address] Arnel Bedoya, PT [address] [address] 10/11/2025 8:30 AM EST Office Visit [address] [place] [address] El-Nirali Amaya H, DO [address] [place] [address] documented as of this encounter Visit Diagnoses Not on filedocumented in this encounter Care Teams Linderman Machine Operator Relationship Specialty Start Date End Date eRhana Arriaga APRN [address] [place] [address] PCP - General Internal Medicine 04/19/15 08/17/17 Pcp, No PCP - General General Medicine 08/18/17 02/06/21 Vida Ponce DO [address] [facility] [place] [address] PCP - General Family Medicine 02/07/21 07/21/24 Vida Ponce DO [address] [facility] [place] [address] PCP - General 04/18/15 Nirali Vo DO [address] [place] [address] PCP - General Family Medicine 07/22/24 Rehana Arriaga APRN [address] [place] [address] Internal Medicine 04/19/15 02/06/21 Castillo Fuller MD [address] [facility] [place] [address] Physician Obstetrics and Gynecology 02/07/21 Иван Carmen MD [address] [place] [address] Referring Provider Rehabilitation Services Coordinator 09/25/22 Zamzam Escobar LCSW [address] [facility] [place] [address] Silviculturist Clinical Social Work 10/13/22 06/20/25 documented as of this encounter
--- OUTSIDE RECORDS SUMMARY | 2025-08-17 09:59 | XMS_ITS | Encounter Summary ---
Author Organization [facility] Address [address] [place] [address] Care Team Providers Care Oil Tanker Captain Name Role Phone Castillo Fuller MD Unavailable [phone] Иван Carmen MD Unavailable [phone] Zamzam Escobar [facility] Unavailable [phone] Nirali Vo DO Primary Care Provider [phone] Encounter Details Date Type Department Care Team (Late st Contact Info) Description 09/15/2024 Scanned Document [facility] GASTRO SCAN Gastroenterology, Scan Social History [...] Info) Description 08/18/2025 12:30 PM EST Treatment [address] [address] Arnel Bedoya, PT [address] [address] 08/25/2025 1:00 PM EST Office Visit [address] [address] Nirali Vo, DO [address] [place] [address] 08/25/2025 1:30 PM EST Treatment [facility] [address] [place] [address] Arnel Bedoya, PT 85 [facility] [address] [place] [address] 10/11/2025 8:30 AM EST Office Visit [facility] [address] [place] [address] Nirali Vo DO [address] [place] [address] documented as of this encounter Visit Diagnoses Not on filedocumented in this encounter Care Teams Oil Tanker Captain Relationship Specialty Start Date End Date Nirali Vo DO [address] [place] [address] PCP - General Family Medicine 07/22/24 Castillo Fuller MD Physician Obstetrics and Gynecology 02/07/21 Иван Carmen MD [address] [place] [address] Referring Provider Revenue Liaison 09/25/22 Zamzam Escobar LCSW [address] [place] [address] Caustic Room Attendant Clinical Social Work 10/13/22 06/20/25 documented as of this encounter
--- OUTSIDE RECORDS SUMMARY | 2025-08-17 09:59 | XMS_ITS | Encounter Summary ---
Author Organization [facility] Address [address] [place] [address] Care Team Providers Care Artist Scientific Name Role Phone Castillo Fuller MD Unavailable [phone] Иван Carmen MD Unavailable [phone] Zamzam Escobar TEA TASTER Unavailable [phone] Nirali Vo DO Primary Care Provider [phone] Encounter Details Date Type Department Care Team (Late st Contact Info) Description 03/09/2025 Scanned Document [facility] [address] [place] [address] Orthopedic Surgery, Scan Social History Tobacco Use [...] place to sleep or slept in a mcc (including now)? No 10/13/2022 Physical Activity Answer [...] Info) Description 08/18/2025 12:30 PM EST Treatment [address] [phone] Arnel Bedoya, PT 85 [facility] [address] [place] [address] 08/25/2025 1:00 PM EST Office Visit [address] [address] Nirali Vo DO [address] [place] [address] 08/25/2025 1:30 PM EST Treatment [facility] [place] [address]59 [place] [address] Arnel Bedoya, PT [address] [address] 10/11/2025 8:30 AM EST Office Visit [facility] [address] [place] [address] Nirali Vo DO [address] [place] [address] documented as of this encounter Visit Diagnoses Not on filedocumented in this encounter Care Teams Artist Scientific Relationship Specialty Start Date End Date Nirali Vo DO [address] [place] [address] PCP - General Family Medicine 07/22/24 Castillo Fuller MD Physician Obstetrics and Gynecology 02/07/21 Иван Carmen MD [address] [place] [address] Referring Provider Distribution Superintendent 09/25/22 Zamzam Escobar LCSW [address] [place] [address] Unbundler Clinical Social Work 10/13/22 06/20/25 documented as of this encounter
--- OUTSIDE RECORDS SUMMARY | 2025-08-17 09:59 | XMS_ITS | Encounter Summary ---
Author Organization [facility] Address [address] [place] [address] Care Team Providers Care Pill Packer Name Role Phone Rehana Arriaga APRN Primary Care Provider [phone] Rehana Arriaga APRN Unavailable [phone] Pcp, No Primary Care Provider Unavailabl e Vida Ponce DO Primary Care Provider [phone] Castillo Fuller MD Unavailable [phone] Mychart, Generic Provider Unavailable [phone] Zamzam Escobar CASTING PLUG ASSEMBLER Unavailable [phone] Nirali Vo DO Primary Care Provider + [phone] Encounter Details Date Type Department Care Team (Late st Contact Info) Description 03/13/2016 Scanned Document [facility] [address] [address] Provider, Generic Social History Tobacco [...] Info) Description 08/18/2025 12:30 PM EST Treatment [place] [address] [place] [address] Arnel Bedoya, PT [address] [address] 08/25/2025 1:00 PM EST Office Visit [address] [place] [address] El-Alan Amayarah H, DO [address] [place] [address] 08/25/2025 1:30 PM EST Treatment [address] [place] [address] Arnel Bedoya, PT [address] [address] 10/11/2025 8:30 AM EST Office Visit [address] [place] [address] Nirali Vo H, DO [address] [place] [address] documented as of this encounter Visit Diagnoses Not on filedocumented in this encounter Care Teams Pill Packer Relationship Specialty Start Date End Date Rehana Arriaga APRN [address] [place] [address] PCP - General Internal Medicine 04/19/15 08/17/17 Pcp, No PCP - General General Medicine 08/18/17 02/06/21 Vida Ponce DO [address] [place] [address] PCP - General Family Medicine 02/07/21 07/21/24 Nirali Vo DO [address] [place] [address], [place] [address] PCP - General Family Medicine 07/22/24 Rehana Arriaga APRN [address] [place] [address] [place], [place] [address] Internal Medicine 04/19/15 02/06/21 Castillo Fuller MD [address] [place] [address] Physician Obstetrics and Gynecology 02/07/21 Иван Carmen MD [address] [place] [address] Referring Provider Heavy Media Operator 09/25/22 Zamzam Escobar LCSW [address] [place] [address] Branch Service Leader Clinical Social Work 10/13/22 06/20/25 documented as of this encounter
--- OUTSIDE RECORDS SUMMARY | 2025-08-17 09:59 | XMS_ITS | Encounter Summary ---
Author Organization [facility] Address [address] [place] [address] Care Team Providers Care Photocomposition Keyboard Operator Name Role Phone Rehana Arriaga APRN Primary Care Provider [phone] Rehana Arriaga APRN Unavailable [phone] Pcp, No Primary Care Provider Unavailabl e Vida Ponce DO Primary Care Provider [phone] Castillo Fuller MD Unavailable [phone] Mychart, Generic Provider Unavailable [phone] Zamzam Escobar [facility] Unavailable [phone] Nirali Vo DO Primary Care Provider + [phone] Encounter Details Date Type Department Care Team (Late st Contact Info) Description 05/29/2016 Scanned Document [address] [phone] Provider, Generic Social History Tobacco Use Types [...] Description 08/18/2025 12:30 PM EST Treatment [address] [address] Arnel Bedoya, PT [address] [address] 08/25/2025 1:00 PM EST Office Visit [address] [place] [address] El-Alan Amayarah H, DO [address] [place] [address] 08/25/2025 1:30 PM EST Treatment [address] [address] Arnel Bedoya, PT [address] [address] 10/11/2025 8:30 AM EST Office Visit [address] [place] [address] El-Nirali Amaya H, DO [address] [place] [address] documented as of this encounter Visit Diagnoses Not on filedocumented in this encounter Care Teams Photocomposition Keyboard Operator Relationship Specialty Start Date End Date Rehana Arriaga APRN [address] [place] [address] PCP - General Internal Medicine 04/19/15 08/17/17 Pcp, No PCP - General General Medicine 08/18/17 02/06/21 Vida Ponce DO [address] [place] [address] PCP - General Family Medicine 02/07/21 07/21/24 Nirali Vo DO [address] [place] [address] PCP - General Family Medicine 07/22/24 Rehana Arriaga APRN [address] [place] [address] Internal Medicine 04/19/15 02/06/21 Castillo Fuller MD [address] [place] [address] Physician Obstetrics and Gynecology 02/07/21 Иван Carmen MD [address] [place] [address] Referring Provider Door And Arrival Attendant 09/25/22 Zamzam Escobar LCSW [address] [place] [address] Estate Attorney Clinical Social Work 10/13/22 06/20/25 documented as of this encounter
--- OUTSIDE RECORDS SUMMARY | 2025-08-17 09:59 | XMS_ITS | Encounter Summary ---
Author Organization [facility] Address [address] [place] [address] Care Team Providers Care Hospice Nurse Name Role Phone Castillo Fuller MD Unavailable [phone] Иван Carmen MD Unavailable [phone] Zamzam Escobar [facility] Unavailable [phone] Nirali Vo DO Primary Care Provider [phone] Encounter Details Date Type Department Care Team (Late st Contact Info) Description 08/19/2024 Scanned Document [facility] PRIMARY CARE SCAN Primary Care, Scan [...] place to sleep or slept in a correction (including now)? No 10/13/2022 Comments No Sex [...] Description 08/18/2025 12:30 PM EST Treatment [address] [address] Arnel Bedoya, PT [address] [address] 08/25/2025 1:00 PM EST Office Visit [address] [address] Nirali Vo, DO [address] [place] [address] 08/25/2025 1:30 PM EST Treatment [facility] [address] [place] [address] Arnel Bedoya, PT 85 [facility] [address] [place] [address] 10/11/2025 8:30 AM EST Office Visit [facility] [address] [place] [address] Nirali Vo DO [address] [place] [address] documented as of this encounter Visit Diagnoses Not on filedocumented in this encounter Care Teams Hospice Nurse Relationship Specialty Start Date End Date Nirali Vo DO [address] [place] [address] PCP - General Family Medicine 07/22/24 Castillo Fuller MD Physician Obstetrics and Gynecology 02/07/21 Иван Carmen MD [address] [place] [address] Referring Provider Print Washer 09/25/22 Zamzam Escobar LCSW [address] [place] [address] Card Hanger Clinical Social Work 10/13/22 06/20/25 documented as of this encounter
--- OUTSIDE RECORDS SUMMARY | 2025-08-17 09:59 | XMS_ITS | Encounter Summary ---
Author Organization [facility] Address [address] [place] [address] Care Team Providers Care Valve Mechanic Name Role Phone Rehana Arriaga APRN Unavailable [phone] Pcp, No Primary Care Provider Unavailabl e Vida Ponce DO Primary Care Provider Castillo Fuller MD Unavailable [phone] Mycpatt, Generic Provider Unavailable [phone]- [phone] Zamzam Escobar DUMPSTER DRIVER Unavailable [phone] Nirali Vo DO Primary Care Provider + [phone] Encounter Details Date Type Department Care Team (Late st Contact Info) Description 08/20/2017 Prep for Surgery HH OBGYN IP [address] [place] [phone] Castillo Fuller MD [address] [place] [address] Social History Tobacco Use Types Packs/Day Years [...] Info) Description 08/18/2025 12:30 PM EST Treatment [facility] [address] [place] [address] Arnel Bedoya, PT [address] [address] 08/25/2025 1:00 PM EST Office Visit [address] [place] [address] Nirali Vo, DO [address] [place] [address] 08/25/2025 1:30 PM EST Treatment [facility] [address] [place] [address] Arnel Bedoya, PT [address] [address] 10/11/2025 8:30 AM EST Office Visit [address] [place] [address] Nirali Vo, DO [address] [place] [address] documented as of this encounter Visit Diagnoses Not on filedocumented in this encounter Care Teams Valve Mechanic Relationship Specialty Start Date End Date Pcp, No PCP - General General Medicine 08/18/17 02/06/21 Vida Ponce DO [address] [place] [address] PCP - General Family Medicine 02/07/21 07/21/24 Nirali Vo DO [address] [place] [address] PCP - General Family Medicine 07/22/24 Rehana Arriaga APRN [address] [place] [address] Internal Medicine 04/19/15 02/06/21 Castillo Fuller MD [address] [place] [address] Physician Obstetrics and Gynecology 02/07/21 Иван Carmen MD [address] [place], [place] [address] Referring Provider Associate Merchandise Planner 09/25/22 Zamzam Escobar LCSW [address] [place] [address] Stitching Department Supervisor Clinical Social Work 10/13/22 06/20/25 documented as of this encounter
--- OUTSIDE RECORDS SUMMARY | 2025-08-17 09:59 | XMS_ITS | Encounter Summary ---
Author Organization [facility] Address [address] [place] [address] Care Team Providers Care Dental Hygiene Instructor Name Role Phone RosarioJavierVida DO Primary Care Provider [phone] Castillo Fuller MD Unavailable [phone], Generic Provider Unavailable [phone] Zamzam Escobar [facility] Unavailable [phone] Nirali Vo DO Primary Care Provider [phone] Encounter Details Date Type Department Care Team (Late st Contact Info) Description 06/07/2021 Scanned Document [facility] PRIMARY CARE SCAN Primary Care, [...] Info) Description 08/18/2025 12:30 PM EST Treatment [facility] [address] [place] [id number] Arnel Bedoya, PT [address] [place] [address] 08/25/2025 1:00 PM EST Office Visit [facility] [address] [place] [address], [place] [phone] Nirali Vo, [address] [place] [address] 08/25/2025 1:30 PM EST Treatment [address] [place] [address] Arnel Bedoya, PT [address] [address] 10/11/2025 8:30 AM EST Office Visit [address] [place] [phone] Nirali Vo DO [address] [place] [address] documented as of this encounter Visit Diagnoses Not on filedocumented in this encounter Care Teams Dental Hygiene Instructor Relationship Specialty Start Date End Date Vida Ponce DO [address] [place] [address] PCP - General Family Medicine 02/07/21 07/21/24 Nirali Vo DO [address] [place] [address] PCP - General Family Medicine 07/22/24 Castillo Fuller MD [address] [place] [address] Physician Obstetrics and Gynecology 02/07/21 Иван Carmen MD [address] [place] [address] Referring Provider Apparatus Cleaner 09/25/22 Zamzam Escobar PATCH FINISHER [address] [place] [address] Elevator Constructor Electric Clinical Social Work 10/13/22 06/20/25 documented as of this encounter
--- OUTSIDE RECORDS SUMMARY | 2025-08-17 09:59 | XMS_ITS | Clinical Summary ---
Author Organization [facility] Prior to 02/11/25 Address [address] [place] [address] Care Team Providers Care Buhr Mill Operator Name Role Phone Unavailable Primary Care Provider Unavailabl e Social History Tobacco Use Types Packs/Day Years Used Date Smoking Tobacco: Never Assessed Sex and Gender Information Value Date Recorded Sex Assigned at Female 09/16/2020 1:52 PM EST Gender Identity Not on file Sexual Orientation Not on file Plan of Treatment Not on file
--- OUTSIDE RECORDS SUMMARY | 2025-08-17 09:59 | XMS_ITS | Encounter Summary ---
Author Organization [facility] Address [address] [place] [address] Care Team Providers Care Associate Business Analyst Name Role Phone Castillo Fuller MD Unavailable [phone] Иван Carmen MD Unavailable [phone] Zamzam Escobar [facility] Unavailable [phone] Nirali Vo DO Primary Care Provider [phone] Encounter Details Date Type Department Care Team (Late st Contact Info) Description 08/03/2024 Scanned Document [facility] GASTRO SCAN Gastroenterology, Scan Social History Tobacco [...] place to sleep or slept in a halfway (including now)? No 10/13/2022 Comments No Sex [...] Info) Description 08/18/2025 12:30 PM EST Treatment [address] [phone] Arnel Bedoya, PT [address] [address] 08/25/2025 1:00 PM EST Office Visit [address] [phone] Nirali Vo, DO [address] [place] [address] 08/25/2025 1:30 PM EST Treatment [facility] [address] [place] [address] Arnel Bedoya, PT 85 [facility] [address] [place] [address] 10/11/2025 8:30 AM EST Office Visit [facility] [address] [place] [phone] Nirali Vo DO [address] [place] [address] documented as of this encounter Visit Diagnoses Not on filedocumented in this encounter Care Teams Associate Business Analyst Relationship Specialty Start Date End Date Nirali Vo DO [address] [place] [address] PCP - General Family Medicine 07/22/24 Castillo Fuller MD Physician Obstetrics and Gynecology 02/07/21 Иван Carmen MD [address] [place] [address] Referring Provider Oracle Erp Developer 09/25/22 Zamzam Escobar LCSW [address] [place] [address] Deputy Building Guard Clinical Social Work 10/13/22 06/20/25 documented as of this encounter
== END 2025-08-17 09:29 | disposition home or self-care (01) ==
LOC: HO.HOS 09:08
PROVIDERS: PCP Student in an Organized Health Care Education/Training Program; Visit Provider Orthopaedic Surgery
DX: M25.562 Pain in left knee (principal)
CPT/HCPCS: 99024

== ENCOUNTER 2025-08-21 09:42 | Outpatient (REF) | payer OTHER, SELFPAY ==
--- NOTE | ~2025-08-21 | US_ITS ---
EXAMINATION(S): 1. MM DIAGNOSTIC DIGITAL BREAST TOMOSYNTHESIS, RIGHT 2. TARGETED ULTRASOUND OF THE RIGHT BREAST CLINICAL INFORMATION: Callback from screening for right breast focal asymmetry in the upper outer quadrant posterior depth. Note that the prior images from [facility] was not available for review at the time of the interpretation of the previous examination. COMPARISON: Comparison made to multiple prior, most recent July 28, 2025, and most remote February 27, 2020. TECHNIQUE: Digital breast tomosynthesis is performed in full field ML 90 degrees along with computer-aided detection (CAD). Synthesized 2D images are generated from the tomosynthesis. Spot compression tomosynthesis were obtained. FINDINGS: BREAST COMPOSITION: There are scattered areas of fibroglandular density. RIGHT BREAST: Approximately 1.1 cm focal asymmetry persists on today's images in the upper outer quadrant posterior depth. Targeted ultrasound of the right breast was performed at the location of the mammographic finding. The survey shows a 1.0 x 0.4 x 0.8 cm cyst with internal septations at 9 o'clock position at 8 cm from the nipple. No abnormal vascularity demonstrated with color Doppler evaluation. US/US Breast RT Limited Mamm Only IMPRESSION: RIGHT BREAST: Septated cyst at 9 o'clock position correlates with the mammographic finding. Benign, no evidence of malignancy. Normal interval follow-up is recommended in 12 months. ASSESSMENT: BI-RADS: Category 2: Benign RECOMMENDATION: 1 year F/U Results were provided to the patient at time of visit by the technologist. This patient's information was entered into a reminder system with a target due date for their next mammogram. Electronically signed by: Johanna Gonzalez MD 08/21/2025 03:58 PM [facility]
== END 2025-08-21 09:43 | disposition home or self-care (01) ==
LOC: HO.MAMMO 09:42
PROVIDERS: PCP Student in an Organized Health Care Education/Training Program; Visit Provider Student in an Organized Health Care Education/Training Program
DX: N64.89 Other specified disorders of breast (principal)
CPT/HCPCS: 76642; 77061; 77065

== ENCOUNTER → 2025-08-21 10:00 | Outpatient (BNV) | payer OTHER, SELFPAY | PROVIDERS: PCP Student in an Organized Health Care Education/Training Program; Visit Provider Radiology Body Imaging | DX: N63.15 Unspecified lump in the right breast, overlapping quadrants (principal) | CPT/HCPCS: 76642; 77061; 77065 ==